=== PATIENT | male | born 1945 | race Caucasian/White ===

== ENCOUNTER → 2019-11-08 10:45 | Outpatient (BNVA) | payer MEDICARE, OTHER, SELFPAY | PROVIDERS: Family Provider Nurse Practitioner; PCP Nurse Practitioner; Visit Provider Nurse Practitioner | DX: E11.65 Type 2 diabetes mellitus with hyperglycemia (principal); I10 Essential (primary) hypertension; Z79.4 Long term (current) use of insulin | CPT/HCPCS: 80053; 81003; 85025; 85651; 86140 ==

== ENCOUNTER → 2019-11-16 10:55 | Outpatient (BNVA) | payer MEDICARE, OTHER, SELFPAY | PROVIDERS: Family Provider Nurse Practitioner; PCP Nurse Practitioner; Visit Provider Nurse Practitioner | DX: M54.6 Pain in thoracic spine (principal); M54.5 Low back pain; I71.4 Abdominal aortic aneurysm, without rupture | CPT/HCPCS: 72072; 72100 ==

== ENCOUNTER → 2019-12-14 09:57 | Outpatient (BNVA) | payer MEDICARE, OTHER, SELFPAY | PROVIDERS: Family Provider Nurse Practitioner; PCP Nurse Practitioner; Visit Provider Nurse Practitioner | DX: E78.5 Hyperlipidemia, unspecified (principal); E03.8 Other specified hypothyroidism; E55.9 Vitamin D deficiency, unspecified; I10 Essential (primary) hypertension; E11.65 Type 2 diabetes mellitus with hyperglycemia | CPT/HCPCS: 80061; 82306; 83036; 84443; 85025 ==

== ENCOUNTER → 2020-03-15 10:29 | Outpatient (BNVA) | payer MEDICARE, OTHER, SELFPAY | PROVIDERS: Family Provider Nurse Practitioner; PCP Nurse Practitioner; Visit Provider Urology | DX: R39.11 Hesitancy of micturition (principal); N41.1 Chronic prostatitis; N40.1 Benign prostatic hyperplasia with lower urinary tract symptoms | CPT/HCPCS: 81001 ==

== ENCOUNTER → 2020-04-02 09:02 | Outpatient (BNVA) | payer MEDICARE, OTHER, SELFPAY | PROVIDERS: Family Provider Nurse Practitioner; PCP Nurse Practitioner; Visit Provider Nurse Practitioner | DX: E11.65 Type 2 diabetes mellitus with hyperglycemia (principal); E55.9 Vitamin D deficiency, unspecified; R39.11 Hesitancy of micturition; I10 Essential (primary) hypertension; I25.10 Atherosclerotic heart disease of native coronary artery without angina pectoris; E78.5 Hyperlipidemia, unspecified; E03.8 Other specified hypothyroidism; K21.9 Gastro-esophageal reflux disease without esophagitis; M54.6 Pain in thoracic spine; M25.50 Pain in unspecified joint; R53.83 Other fatigue; L91.8 Other hypertrophic disorders of the skin | CPT/HCPCS: 80053; 80061; 81000; 82306; 83036; 85025; 86000; 86617; 86666; 86757 ==

== ENCOUNTER → 2020-07-10 09:29 | Outpatient (BNVA) | payer MEDICARE, OTHER, SELFPAY | PROVIDERS: Family Provider Nurse Practitioner; PCP Nurse Practitioner; Visit Provider Nurse Practitioner | DX: E11.65 Type 2 diabetes mellitus with hyperglycemia (principal); R39.11 Hesitancy of micturition; E03.8 Other specified hypothyroidism; E55.9 Vitamin D deficiency, unspecified | CPT/HCPCS: 80053; 81000; 82306; 83036; 84439; 84443; 84481; 85025; 85651; 86140 ==

== ENCOUNTER → 2020-08-17 17:09 | Outpatient (BNVA) | payer MEDICARE, OTHER, SELFPAY | PROVIDERS: Family Provider Nurse Practitioner; PCP Nurse Practitioner; Visit Provider Nurse Practitioner Family | DX: Z20.828 Contact with and (suspected) exposure to other viral communicable diseases (principal) | CPT/HCPCS: 87635 ==

== ENCOUNTER → 2020-09-11 08:42 | Outpatient (BNVA) | payer MEDICARE, OTHER, SELFPAY | PROVIDERS: Family Provider Nurse Practitioner; PCP Nurse Practitioner; Visit Provider Nurse Practitioner | DX: E11.65 Type 2 diabetes mellitus with hyperglycemia (principal) | CPT/HCPCS: 80053; 81000; 83036; 85025 ==

== ENCOUNTER → 2020-09-12 09:26 | Outpatient (BNVA) | payer MEDICARE, OTHER, SELFPAY | PROVIDERS: Family Provider Nurse Practitioner; PCP Nurse Practitioner; Visit Provider Nurse Practitioner | DX: E11.65 Type 2 diabetes mellitus with hyperglycemia (principal); I70.90 Unspecified atherosclerosis | CPT/HCPCS: 71046 ==

== ENCOUNTER → 2020-11-05 14:40 | Outpatient (BNVA) | payer MEDICARE, OTHER, SELFPAY | PROVIDERS: Family Provider Nurse Practitioner; PCP Nurse Practitioner; Visit Provider Nurse Practitioner | DX: E03.8 Other specified hypothyroidism (principal); E78.5 Hyperlipidemia, unspecified | CPT/HCPCS: 80061; 84443 ==

== ENCOUNTER → 2020-12-14 08:39 | Outpatient (BNVA) | payer MEDICARE, OTHER, SELFPAY | PROVIDERS: Family Provider Nurse Practitioner; PCP Nurse Practitioner; Visit Provider Nurse Practitioner | DX: E03.8 Other specified hypothyroidism (principal) | CPT/HCPCS: 84439; 84481 ==

== ENCOUNTER → 2021-01-10 10:16 | Outpatient (BNVA) | payer MEDICARE, OTHER, SELFPAY | PROVIDERS: Family Provider Nurse Practitioner; PCP Nurse Practitioner; Visit Provider Nurse Practitioner | DX: E11.65 Type 2 diabetes mellitus with hyperglycemia (principal); E55.9 Vitamin D deficiency, unspecified; I10 Essential (primary) hypertension | CPT/HCPCS: 80053; 80061; 83036 ==

== ENCOUNTER 2021-02-06 06:00 | Outpatient (RCR) | payer MEDICARE, OTHER, SELFPAY | END 2021-02-08 23:59 | disposition home or self-care (01) | LOC: APT 06:00 | PROVIDERS: PCP Nurse Practitioner; Referring Provider Nurse Practitioner; Visit Provider Nurse Practitioner | DX: M17.10 Unilateral primary osteoarthritis, unspecified knee (principal) | CPT/HCPCS: 97110; 97163 ==

== ENCOUNTER 2021-02-09 06:00 | Outpatient (RCR) | payer MEDICARE, OTHER, SELFPAY | END 2021-03-11 23:59 | disposition home or self-care (01) | LOC: APT 06:00 | PROVIDERS: PCP Nurse Practitioner; Referring Provider Nurse Practitioner; Visit Provider Nurse Practitioner | DX: M17.10 Unilateral primary osteoarthritis, unspecified knee (principal) | CPT/HCPCS: 97110 ==

== ENCOUNTER → 2021-03-18 10:47 | Outpatient (BNVA) | payer MEDICARE, OTHER, SELFPAY | PROVIDERS: PCP Nurse Practitioner; Visit Provider Urology | DX: N40.1 Benign prostatic hyperplasia with lower urinary tract symptoms (principal); R79.89 Other specified abnormal findings of blood chemistry; N41.1 Chronic prostatitis | CPT/HCPCS: 81003; 84403 ==

== ENCOUNTER → 2021-05-13 09:23 | Outpatient (BNVA) | payer MEDICARE, OTHER, SELFPAY | PROVIDERS: PCP Nurse Practitioner; Visit Provider Nurse Practitioner | DX: E11.65 Type 2 diabetes mellitus with hyperglycemia (principal); R39.11 Hesitancy of micturition; I10 Essential (primary) hypertension; I25.10 Atherosclerotic heart disease of native coronary artery without angina pectoris; E55.9 Vitamin D deficiency, unspecified; E03.8 Other specified hypothyroidism; K21.9 Gastro-esophageal reflux disease without esophagitis; E11.43 Type 2 diabetes mellitus with diabetic autonomic (poly)neuropathy | CPT/HCPCS: 81000 ==

== ENCOUNTER → 2021-05-15 09:34 | Outpatient (BNVA) | payer MEDICARE, OTHER, SELFPAY | PROVIDERS: PCP Nurse Practitioner; Visit Provider Nurse Practitioner | DX: E03.8 Other specified hypothyroidism (principal); E55.9 Vitamin D deficiency, unspecified; E11.65 Type 2 diabetes mellitus with hyperglycemia; I10 Essential (primary) hypertension | CPT/HCPCS: 80053; 80061; 82306; 83036; 84443 ==

== ENCOUNTER → 2021-08-08 08:52 | Outpatient (BNVA) | payer MEDICARE, OTHER, SELFPAY | PROVIDERS: PCP Nurse Practitioner; Visit Provider Nurse Practitioner | DX: E11.65 Type 2 diabetes mellitus with hyperglycemia (principal); E03.8 Other specified hypothyroidism; E55.9 Vitamin D deficiency, unspecified | CPT/HCPCS: 80053; 80061; 82043; 82306; 83036; 84439; 84443; 84481 ==

== ENCOUNTER → 2021-09-17 09:37 | Outpatient (BNVA) | payer MEDICARE, OTHER, SELFPAY | PROVIDERS: PCP Nurse Practitioner; Visit Provider Nurse Practitioner | DX: I25.10 Atherosclerotic heart disease of native coronary artery without angina pectoris (principal); E11.65 Type 2 diabetes mellitus with hyperglycemia | CPT/HCPCS: 81000; 85651; 86140 ==

== ENCOUNTER → 2021-10-30 13:08 | Outpatient (BNVA) | payer MEDICARE, OTHER, SELFPAY | PROVIDERS: PCP Nurse Practitioner; Referring Provider Nurse Practitioner; Visit Provider Specialist | DX: M25.562 Pain in left knee (principal); M25.561 Pain in right knee | CPT/HCPCS: 73560; 73565 ==

== ENCOUNTER → 2021-11-06 14:06 | Outpatient (BNVA) | payer MEDICARE, OTHER, SELFPAY | PROVIDERS: PCP Nurse Practitioner; Visit Provider Podiatrist Foot & Ankle Surgery | DX: I25.10 Atherosclerotic heart disease of native coronary artery without angina pectoris (principal); M79.672 Pain in left foot; I10 Essential (primary) hypertension | CPT/HCPCS: 80048; 85025 ==

== ENCOUNTER → 2021-11-27 11:31 | Outpatient (BNVA) | payer MEDICARE, OTHER, SELFPAY | PROVIDERS: PCP Nurse Practitioner; Visit Provider Nurse Practitioner | DX: E11.65 Type 2 diabetes mellitus with hyperglycemia (principal); K57.30 Diverticulosis of large intestine without perforation or abscess without bleeding | CPT/HCPCS: 81000 ==

== ENCOUNTER → 2021-12-02 16:06 | Outpatient (BNVA) | payer MEDICARE, OTHER, SELFPAY | PROVIDERS: PCP Nurse Practitioner; Visit Provider Family Medicine | DX: E11.8 Type 2 diabetes mellitus with unspecified complications (principal); E55.9 Vitamin D deficiency, unspecified; E11.65 Type 2 diabetes mellitus with hyperglycemia; K57.30 Diverticulosis of large intestine without perforation or abscess without bleeding; F17.211 Nicotine dependence, cigarettes, in remission | CPT/HCPCS: 80053; 82306; 83036; 85025 ==

== ENCOUNTER 2021-12-25 07:41 | Outpatient (CLI) | payer MEDICARE, OTHER, SELFPAY ==
[2021-12-25] MEDS: iohexol 300 mg/mL 50 mL Btl IV (07:52)
--- NOTE | 2021-12-25 09:00 | CTR_ITS ---
PROCEDURE INFORMATION: Exam: CT Abdomen And Pelvis Without Contrast Exam date and time: 12/25/2021 9:00 AM Age: 76 years old Clinical indication: Abdominal pain; Localized; Left lower quadrant (llq); Prior surgery; Surgery type: --appy, gb, lt ing hernia repair; Patient HX: Llq/ inguinal pain x 6 weeks; Additional info: K57.30 - diverticulosis of large intestine without perfor. . . , Mob TECHNIQUE: Imaging protocol: Computed tomography of the abdomen and pelvis without contrast. Radiation optimization: All CT scans at this facility use at least one of these dose optimization techniques: automated exposure control; mA and/or kV adjustment per patient size (includes targeted exams where dose is matched to clinical indication); or iterative reconstruction. COMPARISON: CT abdomen pelvis w con* [id number] 01/05/2018 9:57 AM RADIATION DOSE METRICS: Total DLP (mGy-cm): 2454.93 FINDINGS: Lungs: Two stable right lung nodules both seen on image 4/2 measuring 3 mm. Liver: Enlarged liver 215 mm. Gallbladder and bile ducts: Stable cholecystectomy clips. Pancreas: Normal. No ductal dilation. Spleen: Normal. No splenomegaly. Adrenal glands: Normal. No mass. Kidneys and ureters: Normal. No hydronephrosis. Stomach and bowel: Numerous colonic diverticula with mild diverticulitis suspected on image 4/57 involving a focal area of the sigmoid colon. Appendix: No evidence of appendicitis. Intraperitoneal space: Unremarkable. No free air. No significant fluid collection. Vasculature: Stable vascular calcifications with a 33 mm stable infrarenal abdominal aortic aneurysm. Lymph nodes: Unremarkable. No enlarged lymph nodes. Urinary bladder: Unremarkable as visualized. Reproductive: Heterogeneous stable prostate with calcifications. Bones/joints: Again arthritis with listhesis. Bilateral L5 stable pars defects. Soft tissues: Unremarkable. CT/CT abdomen pelvis wo con [id number] IMPRESSION: 1. Mild early acute sigmoid diverticulitis. 2. Stable abdominal aortic aneurysm. 3. Hepatomegaly.
== END 2021-12-25 07:42 | disposition home or self-care (01) ==
LOC: RAD 07:42
PROVIDERS: PCP Nurse Practitioner; Visit Provider Nurse Practitioner
DX: K57.30 Diverticulosis of large intestine without perforation or abscess without bleeding (principal); I71.4 Abdominal aortic aneurysm, without rupture; R16.0 Hepatomegaly, not elsewhere classified
CPT/HCPCS: 74176

== ENCOUNTER → 2022-02-04 16:20 | Outpatient (BNVA) | payer MEDICARE, OTHER, SELFPAY | PROVIDERS: PCP Nurse Practitioner; Visit Provider Family Medicine Adult Medicine | DX: R42 Dizziness and giddiness (principal); H61.23 Impacted cerumen, bilateral; J30.9 Allergic rhinitis, unspecified; E11.65 Type 2 diabetes mellitus with hyperglycemia | CPT/HCPCS: 81000 ==

== ENCOUNTER → 2022-02-10 11:36 | Outpatient (BNVA) | payer MEDICARE, OTHER, SELFPAY | PROVIDERS: PCP Nurse Practitioner; Visit Provider Nurse Practitioner | DX: G47.33 Obstructive sleep apnea (adult) (pediatric) (principal); Z99.89 Dependence on other enabling machines and devices; E11.65 Type 2 diabetes mellitus with hyperglycemia; F41.8 Other specified anxiety disorders | CPT/HCPCS: 36416; 82962 ==

== ENCOUNTER 2022-02-24 10:03 | Outpatient (CLI) | payer MEDICARE, OTHER, SELFPAY ==
--- NOTE | 2022-02-24 10:13 | XRR_ITS ---
PROCEDURE INFORMATION: Exam: XR Lumbosacral Spine Exam date and time: 02/24/2022 10:31 AM Age: 77 years old Clinical indication: Low back pain; Additional info: Spondylolisthesis, lumbosacral region, please comment on presence or absence of spinal instability TECHNIQUE: Imaging protocol: XR of the lumbosacral spine. Views: 2 or 3 views. COMPARISON: CR XR lumbar spine 2-3V* [id number] 11/16/2019 10:55 AM FINDINGS: Bones/joints: Chronic degenerative changes are present with disc space narrowing and small osteophytes. There is narrowing sclerosis and hypertrophy of the lumbar facet joints. There is bilateral L5 spondylolysis with grade 2 spondylolisthesis at L5-S1. The spondylolisthesis does not significantly change flexion and extension. Soft tissues: Unremarkable. Vasculature: The abdominal aorta is calcified. There is infrarenal abdominal aortic aneurysmal dilatation to an AP diameter of 4.2 cm. XR/XR lumbar spine f/e only [id number] IMPRESSION: 1. Chronic degenerative disease. No acute abnormality. 2. Bilateral L5 spondylolysis with grade 2 spondylolisthesis thesis at L5-S1. 3. Infrarenal abdominal aortic aneurysm measuring 4.2 cm in AP diameter.
== END 2022-02-24 10:04 | disposition home or self-care (01) ==
PROVIDERS: PCP Nurse Practitioner; Visit Provider Anesthesiology Pain Medicine
DX: M43.17 Spondylolisthesis, lumbosacral region (principal)
CPT/HCPCS: 72120

== ENCOUNTER → 2022-02-25 09:03 | Outpatient (BNVA) | payer MEDICARE, OTHER, SELFPAY | PROVIDERS: PCP Nurse Practitioner; Visit Provider Nurse Practitioner | DX: E11.65 Type 2 diabetes mellitus with hyperglycemia (principal); E03.8 Other specified hypothyroidism | CPT/HCPCS: 80053; 80061; 82306; 83036; 84443 ==

== ENCOUNTER 2022-03-17 14:56 | Outpatient (CLI) | payer MEDICARE, OTHER, SELFPAY | END 2022-03-17 14:57 | disposition home or self-care (01) | PROVIDERS: PCP Nurse Practitioner; Visit Provider Urology | DX: M17.10 Unilateral primary osteoarthritis, unspecified knee (principal); R79.9 Abnormal finding of blood chemistry, unspecified; Z79.899 Other long term (current) drug therapy; N40.1 Benign prostatic hyperplasia with lower urinary tract symptoms; N41.1 Chronic prostatitis; R79.89 Other specified abnormal findings of blood chemistry | CPT/HCPCS: 36415; 51798; 81003; 84403; 99213 ==

== ENCOUNTER → 2022-04-23 13:25 | Outpatient (BNVA) | payer MEDICARE, OTHER, SELFPAY | PROVIDERS: PCP Nurse Practitioner; Referring Provider Dermatology; Visit Provider Podiatrist Foot & Ankle Surgery | DX: M79.671 Pain in right foot (principal); M79.672 Pain in left foot; E11.42 Type 2 diabetes mellitus with diabetic polyneuropathy; L84 Corns and callosities; L60.3 Nail dystrophy; M20.41 Other hammer toe(s) (acquired), right foot; M21.41 Flat foot [pes planus] (acquired), right foot; M21.42 Flat foot [pes planus] (acquired), left foot; M20.42 Other hammer toe(s) (acquired), left foot | CPT/HCPCS: 99204 ==

== ENCOUNTER 2022-05-12 09:08 | Outpatient (CLI) | payer MEDICARE, OTHER, SELFPAY ==
--- NOTE | 2022-05-12 09:15 | US_ITS ---
WS: [id number] ULTRASOUND ABDOMEN LIMITED CLINICAL INFORMATION: CONCERN FOR L INGUINAL HERNIA COMPARISON: None. FINDINGS: Normal LEFT inguinal canal. No visualized inguinal hernia. No herniated bowel. No fluid collections. US/US abdomen limited [id number] IMPRESSION: No visualized inguinal hernia. No herniated bowel.
== END 2022-05-12 09:09 | disposition home or self-care (01) ==
LOC: RAD 09:08
PROVIDERS: PCP Nurse Practitioner; Visit Provider Family Medicine
DX: K40.90 Unilateral inguinal hernia, without obstruction or gangrene, not specified as recurrent (principal)
CPT/HCPCS: 76705

== ENCOUNTER 2022-05-30 14:44 | Inpatient (IN) | payer MEDICARE, OTHER, SELFPAY ==
[2022-05-30 14:53] VITALS: BP 110/56; PULSE 62; RESP 18; TEMP 36.6; O2SAT 97; BMI 36.3
--- NOTE | 2022-05-30 15:02 | ED_ITS ---
HPI - Chest Pain General: Chief Complaint: Chest Pain Stated Complaint: CHEST PAIN Time Seen by Provider: 05/30/22 14:44 Source: patient and EMS Mode of arrival: EMS Limitations: no limitations History of Present Illness: This patient was transferred to the emergency department from his [facility] office this afternoon. He apparently has been having chest pains off and on relieved by nitroglycerin for a number of days perhaps longer and finally decided to come to his doctor today. He has a history of coronary disease has 2 stents the last of which was placed approximately 2 years ago. He states he has never been told he has had a heart attack however. He states today his chest pains also began while he was in the doctor's office he received used a nitro glycerin spray at that time which relieved his symptoms. EMS arrived for the transport gave him 324 mg of aspirin p.o. as well as 2 additional sublingual nitroglycerin he states he is chest pain-free at this time. He states he been having the chest pains that are unpredictable in nature they will can sometimes come on with exertion sometimes not. He states they have woken him from sleep. He states the always resolve with nitro spray and the couple of aspirin. He is also been having some left- sided abdominal pain. He has a history of diverticulosis and thinks he may be having diverticulitis. He denies any blood in his stools or fevers. MD complaint: chest pain Pertinent past history: coronary artery disease Pain location: substernal Severity: moderate Quality: tightness and heaviness Relieving factors: nitroglycerin Exacerbating factors: exertion Associated symptoms: Reports no associated symptoms and abdominal pain; Deny dyspnea, fever(s), nausea, syncope or vomiting Review of Systems Const: Denies: fever(s) or chills Eyes: Denies: change in vision ENMT: Denies: throat pain, odynophagia, change in hearing, nasal congestion or nasal obstruction Card: Reports: chest pain; Denies: syncope or pre-syncope Resp: Denies: dyspnea, productive cough or non-productive cough GI: Reports: abdominal pain; Denies: nausea, vomiting, diarrhea, change in bowel habits, hematochezia or melena : Denies: flank pain, difficulty urinating or dysuria Musc: Denies: neck pain, back pain, extremity pain or extremity swelling Skin/Breast: Denies: rash Neuro: Denies: headache(s), numbness in extremities or weakness in extremities Psych: Denies: anxiety or depression Endo: Denies: polyuria or polydipsia PFSH ED PFSH: Medical History Adult onset hypothyroidism Allergic rhinitis due to allergen Arteriosclerosis of coronary artery Bilateral hearing loss due to cerumen impaction BPH loc w urin obs/LUTS Good response and durably so to dual medical therapy of FINASTERIDE/TAMSULOSIN (single dose) CAD (coronary artery disease) Chest pain at rest Chronic prostatitis On self treatment with CIPROFLOXACIN. Sporadic treatment required. Controlled diabetes mellitus with hyperglycemia, without long-term current use of insulin DDD (degenerative disc disease), lumbar Dependence on nocturnal oxygen therapy Diverticula, colon Dizziness and giddiness DM autonomic neuropathy Dyslipidemia Essential (primary) hypertension GERD (gastroesophageal reflux disease) GREG on CPAP Osteoarthritis, knee Pain in thoracic spine at multiple sites Urinary hesitancy Vitamin D insufficiency Surgical History H/O rectal polypectomy History of angiography With stent placement History of appendectomy History of carotid artery disease surgery right bilateral 2007 History of cataract surgery right and left History of cholecystectomy History of colonoscopy 2017 repeat in 3 years History of hernia repair Left History of surgery on arm right skin graft age 17 History of surgical amputation of finger of right hand age 17 Family History Mother Cancer Father CAD (coronary artery disease) Stroke Denies family history of Bleeding disorder Social History Smoking and tobacco status: former smoker Second hand smoke exposure: No Smoking risk assessment/counseling performed?: No Alcohol intake: never Desire information about alcohol rehabilitation?: No Counseling given: No Desire information about substance/drug rehabilitation?: No Counseling given: No Adopted: No Caregiver/support person: No Lives independently: Yes Household members: spouse Housing: House Marital status: service: No Current occupational status: employed History of recent travel: No Current gender identity: Male Physical Exam Narrative: EXAM NARRATIVE: He makes good eye contact. Speech is goal-directed. He is comfortable. Const: COMMON NORMALS: no acute distress GENERAL APPEARANCE: cooperative and comfortable NUTRITIONAL APPEARANCE: overweight ORIENTATION/CONSCIOUSNESS: Yes awake HENMT: COMMON NORMALS: normocephalic, atraumatic, Normal nasal mucous membranes and turbinates present, moist oral mucous membranes and oropharynx normal HEAD & SCALP: normocephalic and atraumatic NOSE: Normal nasal mucous membranes and turbinates present Eye: COMMON NORMALS: Equal, round and reactive pupils present, EOMs intact bilaterally and conjunctivae normal CONJUNCTIVA: Yes conjunctivae normal PUPIL: Yes Equal, round and reactive pupils present Neck/C-Spine: COMMON NORMALS: full ROM, no lymphadenopathy, Thyroid normal and No carotid bruits THYROID: Thyroid normal Chest: COMMONS NORMALS: normal inspection of the chest and normal palpation of entire chest wall Resp: COMMON NORMALS: normal respiratory effort, No use of accessory muscles and clear to auscultation bilaterally EFFORT & INSPECTION: Yes able to speak in complete sentences AUSCULTATION: clear to auscultation bilaterally Cardio: COMMON NORMALS: regular rate, regular rhythm and Peripheral pulses 2+ throughout RATE: regular rate RHYTHM: regular rhythm HEART SOUNDS: Murmur heart sound present (2/6 left sternal border) systolic PERIPHERAL PULSES: Peripheral pulses 2+ throughout GI: OTHER: Obese abdomen. Tender left lower quadrant some voluntary guarding. No rebound. No masses. Skin changes no ecchymosis. : COMMON NORMALS: Yes no CVA tenderness BLADDER/KIDNEY EXAM: Yes no CVA tenderness Back/Pelvis: COMMON NORMALS: no CVA tenderness, no thoracic nor lumbar tenderness, thoraco-lumbar ROM normal and straight leg raise negative bilaterally Extremity: COMMON NORMALS: full ROM, capillary refill normal, no calf tenderness and no pedal edema NARRATIVE EXTREMITY EXAM: Extremity examination is remarkable for prior amputation of fourth and fifth digits of right hand. GENERAL: Yes amputation Neuro: COMMON NORMALS: moves all extremities and no focal motor deficits CRANIAL NERVES: Yes CN normal except as noted Psych: COMMON NORMALS: mental status grossly normal Skin: COMMON NORMALS: no rashes or lesions noted, turgor normal, no jaundice and no petechiae GENERAL SKIN EXAM: no rashes or lesions noted and turgor normal Course Reevaluation(s): Reevaluation #1: No chest pain at this time. Time: 17:23 Consultations: Consultation #1: Rudy cardiology will consult. She recommends lovenox. Time: 17:23 Vital Signs: Vital signs: Vital Signs Temperature 97.8 F 08/19/22 14:53 Pulse Rate 50 L 05/30/22 16:15 Respiratory Rate 15 05/30/22 16:15 Blood Pressure 176/84 05/30/22 16:15 Pulse Oximetry 93 05/30/22 16:15 Oxygen Delivery Me thod 05/30/22 16:15 MDM - Chest Pain Medical Decision Making Patient with known coronary artery disease referred from his primary care offic e. The patient gives a history of waxing and waning chest pain over the past few weeks always relieved by nitroglycerin. He is awakened at sleep sometimes by the symptoms. He presented today with chest pain while in his physician's office. EKG was initially reassuring without any acute ST-T wave changes. His initial troponin was slightly elevated at 27. He also been having some concomitant left lower abdominal pain and a CT scan was obtained which showed mild diverticulitis. Cardiology was consulted and he will be placed in the hospital for following serial troponin, antibiotics, further evaluation of what would seem to be unstable angina at this time. Medical Records I reviewed the patient's medical records. Lab Data I reviewed the patient's lab results. : 05/30/22 15:20 05/30/22 15:20 Radiology Impressions Chest X-Ray 05/30/22 15:03 Impression: Atherosclerosis. Abdomen/Pelvis CT 05/30/22 16:19 IMPRESSION: 2. There is subtle haziness of the fat adjacent to a segment of the proximal sigmoid colon concerning for mild diverticulitis. No fluid collection, abscess or free air. 3. There is diffuse wall thickening of the colon but the colon is also mostly collapsed in this is probable lack of distension rather than diffuse colitis. Laboratory Results WBC 5.9 10^3/uL (4.0-10.0) 05/30/22 15:20 RBC 5.40 10^6/uL (4.1-5.3) H 05/30/22 15:20 Hgb 16.2 g/dL (11.7-16.6) 05/30/22 15:20 Hct 50.5 % (42.0-52.0) 05/30/22 15:20 MCV 93.5 fl (80-94) 05/30/22 15:20 MCH 30.0 pg (28.0-34.0) 05/30/22 15:20 MCHC 32.1 g/dL (30.0-36.0) 05/30/22 15:20 RDW 12.5 % (12.1-15.1) 05/30/22 15:20 Plt Count 284 10^3/cmm (130-400) 05/30/22 15:20 MPV 9.4 fL (7.4-10.4) 05/30/22 15:20 Neut % (Auto) 52.9 % 05/30/22 15:20 Lymph % (Auto) 31.3 % 05/30/22 15:20 Desha % (Auto) 9.6 % 05/30/22 15:20 Eos % (Auto) 5.0 % 05/30/22 15:20 Baso % (Auto) 1.0 % 05/30/22 15:20 Neut # (Auto) 3.10 10^3/uL (1.8-7.7) 05/30/22 15:20 Lymph # (Auto) 1.8 10^3/uL (0.8-4.8) 05/30/22 15:20 Desha # (Auto) 0.6 10^3/uL (0.2-0.9) 05/30/22 15:20 Eos # (Auto) 0.3 10^3/uL (0.0-0.8) 05/30/22 15:20 Baso # (Auto) 0.1 10^3/uL (0.0-0.1) 05/30/22 15:20 Nucleated RBC % (auto) 0 % 05/30/22 15:20 Nucleated RBCs # 0.0 /100WBC 05/30/22 15:20 Sodium 138 mmol/L (136-145) 05/30/22 15:20 Potassium 4.2 mmol/L (3.5-5.1) 05/30/22 15:20 Chloride 103 mmol/L (98-107) 05/30/22 15:20 Carbon Dioxide 24 mmol/L (22-29) 05/30/22 15:20 Anion Gap 15.2 (5-19) 05/30/22 15:20 BUN 18 mg/dL (8-23) 05/30/22 15:20 Creatinine 0.8 mg/dL (0.7-1.2) 05/30/22 15:20 GFR Calculation Not Reportable 05/30/22 15:20 Glucose 95 mg/dL (65-115) 05/30/22 15:20 Calculated Osmolality 288 mOsm/kg (285-295) 05/30/22 15:20 Calcium 9.5 mg/dL (8.5-10.5) 05/30/22 15:20 Total Bilirubin 0.4 mg/dL (0.15-1.2) 05/30/22 15:20 AST 17 U/L (0-40) 05/30/22 15:20 ALT 19 U/L (0-41) 05/30/22 15:20 Alkaline Phosphatase 89 U/L (40-130) 05/30/22 15:20 Troponin T Baseline 27 ng/L (0-15) H 05/30/22 15:20 NT-Pro-B Natriuret Pep 138 pg/mL (0-450) 05/30/22 15:20 Total Protein 6.7 g/dL (6.6-8.7) 05/30/22 15:20 Albumin 3.8 g/dL (3.5-5.2) 05/30/22 15:20 Globulin 2.9 g/dL (1.3-4.6) 05/30/22 15:20 EKG Data EKG 2: I personally reviewed and interpreted this EKG as follows: EKG interpretation time: 17:24 Interpretation: Second EKG this visit reveals sinus bradycardia with first-degree AV block. Other than lengthen MO interval his QRS duration is normal and his QTC is normal. No acute ST-T wave changes noted. No change from prior tracing this visit. Discharge Plan Discharge Patient Disposition: Placed in Observation Clinical Impression: Unstable angina pectoris, CAD (coronary artery disease), Diverticula, colon Coding Level of Care Code ED Hospitality Aide for Chg Fwd Exam Comprehensive
--- NOTE | 2022-05-30 15:03 | XR_ITS ---
WS: [id number] Portable AP upright chest, 05/30/2022 Clinical Data: chest pain Comparison: PA and lateral chest, 09/12/2020. Findings: No nodules, masses or effusions are seen. The heart is normal. The pulmonary vascularity is not increased. No pneumonia or pneumothorax is seen. The aortic arch and descending thoracic aorta s how calcification and tortuosity. XR/XR chest 1V portable [id number] Impression: Atherosclerosis.
--- NOTE | 2022-05-30 15:04 | ECG_ITS ---
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 Measurements Intervals [place] Rate: 55 P: -1 DE: 226 QRS: -26 QRSD: 114 T: 14 QT: 431 QTc: 413 Interpretive Statements SINUS BRADYCARDIA WITH FIRST DEGREE AV BLOCK BORDERLINE LEFT AXIS DEVIATION [QRS AXIS < -20] MODERATE INTRAVENTRICULAR CONDUCTION DELAY [110+ ms QRS DURATION] Compared to ECG 04/24/2018 20:44:04 First degree AV block now present Intraventricular conduction delay now present Sinus rhythm no longer present Myocardial infarct finding no longer present Electronically Signed On 05-30-2022 17:43:21 CDT by Guicho Goff M.D. [id number]
[2022-05-30 15:29] LABS: Basophils # 0.1 10^3/uL (0.0-0.1); Eosinophils # 0.3 10^3/uL (0.0-0.8); Hematocrit 50.5 % (42.0-52.0); Hemoglobin 16.2 g/dL (11.7-16.6); Lymphocytes # 1.8 10^3/uL (0.8-4.8); Lymphocytes % 31.3 %; Mean Corpuscular HGB Conc 32.1 g/dL (30.0-36.0); Mean Corpuscular Volume 93.5 fl (80-94); Mean Platelet Volume 9.4 fL (7.4-10.4); Monocytes # 0.6 10^3/uL (0.2-0.9); Monocytes % 9.6 %; Neutrophils % 52.9 %; Nucleated Red Blood Cells % 0 %; Platelet Count 284 10^3/cmm (130-400); Red Cell Distribution Width 12.5 % (12.1-15.1); White Blood Count 5.9 10^3/uL (4.0-10.0)
[2022-05-30 15:33] VITALS: BP 127/69; PULSE 52; RESP 16; O2SAT 95
[2022-05-30 16:00] LABS: Troponin(5th) Baseline 27 ng/L (0-15)
[2022-05-30 16:04] LABS: Alanine Aminotransferase 19 U/L (0-41); Albumin Level 3.8 g/dL (3.5-5.2); Alkaline Phosphatase 89 U/L (40-130); Aspartate Amino Transferase 17 U/L (0-40); Blood Urea Nitrogen 18 mg/dL (8-23); Calcium 9.5 mg/dL (8.5-10.5); Carbon Dioxide 24 mmol/L (22-29); Chloride 103 mmol/L (98-107); Globulin 2.9 g/dL (1.3-4.6); Glucose 95 mg/dL (65-115); NT Pro B Type Natriuretic Pept 138 pg/mL (0-450); Osmolality Calculated 288 mOsm/kg (285-295); Sodium 138 mmol/L (136-145); Total Bilirubin 0.4 mg/dL (0.15-1.2); Total Protein 6.7 g/dL (6.6-8.7)
[2022-05-30 16:15] VITALS: BP 176/84; PULSE 50; RESP 15; O2SAT 93
--- NOTE | 2022-05-30 16:19 | CTR_ITS ---
PROCEDURE INFORMATION: Exam: CT Abdomen And Pelvis Without Contrast Exam date and time: 05/30/2022 4:47 PM Age: 77 years old Clinical indication: Abdominal pain; Generalized; Prior surgery; Surgery date: 6+ months; Surgery type: Gb , appy; Additional info: Left lower abd pain-hx of diverticulosis TECHNIQUE: Imaging protocol: Computed tomography of the abdomen and pelvis without contrast. Radiation optimization: All CT scans at this facility use at least one of these dose optimization techniques: automated exposure control; mA and/or kV adjustment per patient size (includes targeted exams where dose is matched to clinical indication); or iterative reconstruction. COMPARISON: CT abdomen pelvis wo con [id number] 12/25/2021 8:11 AM RADIATION DOSE METRICS: Total DLP (mGy-cm): 1099.74 FINDINGS: Lungs: There is mild ground-glass opacity in the lung bases compatible with atelectasis or minimal pneumonitis. Liver: Unremarkable.No mass. Gallbladder and bile ducts: There has been a cholecystectomy. There is no common bile duct dilation. Pancreas: Normal. No ductal dilation. Spleen: The spleen is normal. An accessory splenule is present. Adrenal glands: The adrenal glands are normal. Kidneys and ureters: There is no evidence of hydronephrosis. There is no evidence of renal calcifications. Stomach and bowel: Extensive diverticulosis is present in the distal colon. There is subtle haziness of the fat adjacent to a segment of the proximal sigmoid colon concerning for mild diverticulitis. There is diffuse wall thickening of the colon but the colon is also mostly collapsed in this is probable lack of distension rather than diffuse colitis. Appendix: The appendix is not definitively identified. However, there is no CT evidence of a right lower quadrant inflammatory process. Intraperitoneal space: Unremarkable. No free air. No significant fluid collection. Vasculature: The aorta demonstrates moderate atherosclerotic calcification. The distal abdominal aorta measures 3.7 cm. Lymph nodes: Unremarkable.No enlarged lymph nodes. Urinary bladder: Unremarkable as visualized. Reproductive: Click bladderThe prostate demonstrates moderate nonspecific enlargement. The seminal vesicles are normal. The prostate demonstrates nonspecific parenchymal calcifications. Bones/joints: The there is bilateral spondylolysis of L5 with mild grade 1 spondylolisthesis of L5 on S1. There are moderate degenerative changes in the spine. No acute bony abnormality. There is moderate to severe narrowing of the spinal canal at L4-L5 and L5-S1 due to small disc bulges and bony proliferative changes. Soft tissues: There is a nonobstructing right inguinal hernia. CT/CT abdomen pelvis wo con [id number] IMPRESSION: 2. There is subtle haziness of the fat adjacent to a segment of the proximal sigmoid colon concerning for mild diverticulitis. No fluid collection, abscess or free air. 3. There is diffuse wall thickening of the colon but the colon is also mostly collapsed in this is probable lack of distension rather than diffuse colitis.
[2022-05-30 16:33] LABS: Anion Gap 15.2 (5-19); Potassium 4.2 mmol/L (3.5-5.1)
--- NOTE | 2022-05-30 17:04 | ECG_ITS ---
[facility] Test Date: 2022-05-30 Pat Name: Mo Van Department: Room: Gender: Male Event Host: : 1945 Requested By: Hao Brown Order Number: [id number] Seiln MD: Guicho Goff M.D. Measurements Intervals [place] Rate: 50 P: 66 TN: 229 QRS: -17 QRSD: 117 T: 34 QT: 457 QTc: 417 Interpretive Statements SINUS BRADYCARDIA WITH FIRST DEGREE AV BLOCK MODERATE INTRAVENTRICULAR CONDUCTION DELAY [110+ ms QRS DURATION] Compared to ECG 05/30/2022 15:18:31 No significant changes Electronically Signed On 05-30-2022 17:48:34 CDT by Guicho Goff M.D. [id number]
--- NOTE | 2022-05-30 18:07 | USCV_ITS ---
Mo Van Age: 77 Gender: M : 1945 Exam Date: 05/30/2022 18:44 Ordering Phys: Dwayne Todd MD Technologist: Isaac Irby [place] [facility] [place]: Chest pain, sob BP: 126 / 46 HR: 46 Rhythm: Sinus Technical Quality: Suboptimal MEASUREMENTS (Male / Female) Normal Values 2D ECHO LV Diastolic Diameter PLAX 3.6 cm 4.2 - 5.9 / 3.9 - 5.3 cm LV Systolic Diameter PLAX 2.3 cm IVS Diastolic Thickness 1.2 cm 0.6 - 1.0 / 0.6 - 0.9 cm IVS Systolic Thickness 1.5 cm LVPW Diastolic Thickness 1.4 cm 0.6 - 1.0 / 0.6 - 0.9 cm LVPW Systolic Thickness 1.9 cm LVOT Diameter 2.0 cm LV Ejection Fraction 2D Teich 67.3 % LV Ejection Fraction MOD 2C 64.8 % LV Ejection Fraction 2C AL 65.6 % LA Diameter 4.7 cm IVC Diameter 2.0 cm M-MODE Aortic Annulus Diameter 4.3 cm LA Ao Ratio MM 1.3 DOPPLER AV Peak Velocity 233.5 cm/s LVOT Peak Velocity 89.0 cm/s AV Area Cont Eq vti 1.0 cm squared AV Area Cont Eq pk 1.2 cm squared MV Area PHT 5.0 cm squared Mitral E to A Ratio 0.7 MV E' Velocity 34.5 cm/s Mitral E to MV E' Ratio 8.9 Mitral E to LV E' Lateral Ratio 8.0 Mitral E to LV E' Septal Ratio 10.0 TR Peak Velocity 160.0 cm/s TR Peak Gradient 10.2 mmHg TV Peak E Velocity 82.0 cm/s Right Atrial Pressure 3.0 mmHg Pulmonary Artery Systolic Pressu 13.2 mmHg PV Peak Velocity 140.0 cm/s FINDINGS Left Ventricle Normal left ventricular cavity size. Normal left ventricular systolic function. Left ventricular ejection fraction is estimated at 65 %. No regional wall motion abnormalities. Grade I diastolic dysfunction (abnormal relaxation filling pattern), normal to mildly elevated filling pressures. Right Ventricle Normal right ventricular size and systolic function. Right ventricular systolic pressure 13.2 mmHg. Right Atrium Normal right atrial size. Left Atrium Mildly increased left atrial size. Mitral Valve Mild mitral annular calcification. No mitral valve stenosis. No mitral valve regurgitation. Aortic Valve Mildly thickened trileaflet aortic valve. Mild aortic valve stenosis, peak velocity 2.3 m/sec, peak gradient 21 mm Hg, mean gradient 11 mmHg, FAN 1.1 cm squared. No aortic valve regurgitation. Tricuspid Valve Structurally normal tricuspid valve. Trace tricuspid valve regurgitation. Pulmonic Valve Pulmonic valve not well visualized. Pericardium No pericardial effusion. Aorta Aorta not well visualized. IVC Inferior vena cava not visualized. CONCLUSIONS 1. Normal left ventricular cavity size and systolic function. Left ventricular ejection fraction is estimated at 65 %. No regional wall motion abnormalities. Grade I diastolic dysfunction (abnormal relaxation filling pattern), normal to mildly elevated filling pressures. 2. Normal right ventricular size and systolic function. 3. Mild aortic valve stenosis, peak velocity 2.3 m/sec, peak gradient 21 mm Hg, mean gradient 11 mmHg, FAN 1.1 cm squared. 4. No significant change when compared to study dated 03/10/2019. Rachell Benitez MD (Electronically Signed) Final Date: 31 May 2022 10:22 S
--- NOTE | 2022-05-30 18:10 | PM.HP ---
Providers/Chief Complaint Primary Care Provider: RUSSELL Ghotra Chief Complaint: CHEST PAIN History of Present Illness Pleasant 77-year-old gentleman presents to the hospital due to recurrent episodes of chest pain over the last week, but getting worse, at least several episodes this morning. Requiring nitroglycerin, which has been helping. Describes chest pain episodes as central, radiating to the back and left arm. They may occur with exertion, but may occur at rest, and sometimes wake him up at night. During episodes he feels very weak. He reports history of coronary disease with stenting performed in [place] several years ago. Reports that he completed a year of Plavix after which she discontinued it. He states that he has not been taking aspirin due to GERD and with history of diverticulosis reports there was concern to avoid bleeding. He denies any bloody stools, any melena. He does not have pain currently. He additionally does report also having some left lower quadrant pain recently. CT abdomen pelvis in ER shows findings suggestive of mild diverticulitis. Review of Systems Const: Denies: fever(s), chills, body aches or malaise Eyes: Denies: change in vision, eye discomfort or eye redness ENMT: Denies: throat pain, oral sores or ear or mastoid pain Card: Reports: chest pain; Denies: edema, pre-syncope or dyspnea on exertion Resp: Denies: dyspnea, productive cough, change in phlegm color or hemoptysis GI: Reports: abdominal pain (LLQ); Denies: nausea, vomiting, diarrhea, constipation, hematochezia or melena : Denies: flank pain, difficulty urinating, urinary frequency or hematuria Musc: Denies: back pain, joint swelling or joint redness Skin/Breast: Denies: rash or new lesions Neuro: Denies: headache(s), numbness in extremities, weakness in extremities, dizziness, confusion or seizure-like activity Endo: Denies: polyuria or polydipsia Sujit/Lymph: Denies: easy bleeding or tender lymph nodes All/Imm: Denies: urticaria or tongue swelling Medications/Allergies Home Medications Medication Instructions Recorded Confirmed Last Taken Type diabetic shoes #1 ea 10/18/20 05/30/22 Unknown Rx nitroglycerin 400 mcg/spray 1 spray translingual Q5M PRN chest 11/14/20 05/30/22 Unknown Rx translingual pain #4.9 grams stbehvoa-dnbvushbs-xygkqmfwv 3.5 4 drp otic (ear) TID 10 days #10 mL 07/18/21 05/30/22 Unknown Rx mg-10,000 unit/mL-1 % ear drops,susp Diabetic shoes with inserts #1 ea 12/02/21 05/30/22 Unknown Rx chlorhexidine gluconate 0.12 % 15 ml buccal BID #473 mL 12/26/21 05/30/22 Unknown Rx mouthwash (Peridex) CPAP machine and supplies #1 ea 02/10/22 05/30/22 Unknown Rx blood sugar diagnostic (OneTouch #50 ea 02/10/22 05/30/22 Unknown Rx Ultra Test) blood-glucose meter (OneTouch #1 ea 02/10/22 05/30/22 Unknown Rx Ultra2 Meter) empagliflozin 10 mg tablet 10 mg PO QAM #90 tabs 02/27/22 05/30/22 Unknown Rx (Jardiance) finasteride 5 mg tablet 5 mg PO QDAY #90 tabs 02/27/22 05/30/22 Unknown Rx furosemide 20 mg tablet 20 mg PO QAM PRN edema #90 tabs 02/27/22 05/30/22 Unknown Rx gabapentin 800 mg tablet 800 mg PO TID #270 tabs 02/27/22 05/30/22 Unknown Rx levothyroxine 200 mcg tablet 200 mcg PO DAILY #90 tabs 02/27/22 05/30/22 Unknown Rx potassium chloride 10 mEq 10 meq PO QDAY PRN with fluid pill 02/27/22 05/30/22 Unknown Rx tablet,extended release (Klor-Con) #90 tabs valsartan 40 mg tablet (Diovan) 40 mg PO DAILY #90 tabs 02/27/22 05/30/22 Unknown Rx Knee brace L1851 #2 ea 03/21/22 05/30/22 Unknown Rx Diabetic Shoes with 3 Insoles #1 ea 04/23/22 05/30/22 Unknown Rx tamsulosin 0.4 mg capsule 0.4 mg PO QDAY #90 caps 05/09/22 05/30/22 Unknown Rx Allergies Allergy/AdvReac Type Severity Reaction Status Date / Time No Known Allergies Allergy Verified 05/30/22 13:14 PFSH Acute PFSH: Medical History Adult onset hypothyroidism Allergic rhinitis due to allergen Arteriosclerosis of coronary artery Bilateral hearing loss due to cerumen impaction BPH loc w urin obs/LUTS Good response and durably so to dual medical therapy of FINASTERIDE/TAMSULOSIN (single dose) CAD (coronary artery disease) Chest pain at rest Chronic prostatitis On self treatment with CIPROFLOXACIN. Sporadic treatment required. Controlled diabetes mellitus with hyperglycemia, without long-term current use of insulin DDD (degenerative disc disease), lumbar Dependence on nocturnal oxygen therapy Diverticula, colon Dizziness and giddiness DM autonomic neuropathy Dyslipidemia Essential (primary) hypertension GERD (gastroesophageal reflux disease) GREG on CPAP Osteoarthritis, knee Pain in thoracic spine at multiple sites Urinary hesitancy Vitamin D insufficiency Surgical History H/O rectal polypectomy History of angiography With stent placement History of appendectomy History of carotid artery disease surgery right bilateral 2007 History of cataract surgery right and left History of cholecystectomy History of colonoscopy 2017 repeat in 3 years History of hernia repair Left History of surgery on arm right skin graft age 17 History of surgical amputation of finger of right hand age 17 Family History Mother Cancer Father CAD (coronary artery disease) Stroke Denies family history of Bleeding disorder Social History Smoking and tobacco status: former smoker Second hand smoke exposure: No Smoking risk assessment/counseling performed?: No Alcohol intake: never Desire information about alcohol rehabilitation?: No Counseling given: No Desire information about substance/drug rehabilitation?: No Counseling given: No Adopted: No Caregiver/support person: No Lives independently: Yes Household members: spouse Housing: House Marital status: service: No Current occupational status: employed History of recent travel: No Current gender identity: Male Vitals/I&O/Wt Last Vital Signs Temp 97.8 F 05/30/22 14:53 Pulse 50 L 05/30/22 16:15 Resp 15 05/30/22 16:15 BP 176/84 05/30/22 16:15 Pulse Ox 93 05/30/22 16:15 O2 Del Method 05/30/22 16:15 Weight last 48 hrs Weight 121.563 kg Physical Exam Const: COMMON NORMALS: patient oriented x3 and alert GENERAL APPEARANCE: cooperative ORIENTATION/CONSCIOUSNESS: Yes awake HENMT: COMMON NORMALS: oropharynx normal Neck/C-Spine: COMMON NORMALS: no JVD Resp: COMMON NORMALS: normal respiratory effort and clear to auscultation bilaterally AUSCULTATION: clear to auscultation bilaterally Cardio: COMMON NORMALS: no JVD, regular rhythm, S1 normal heart sound present, S2 normal heart sound present and No murmurs present (Cardio) RHYTHM: regular rhythm HEART SOUNDS: S1 normal heart sound present and S2 normal heart sound present GI: COMMON NORMALS: Normal to inspection, nondistended, normoactive bowel sounds present and Soft to palpation PALPATION: Yes Soft to palpation Extremity: COMMON NORMALS: no joint enlargement and no pedal edema OTHER: Right digit amputation Neuro: COMMON NORMALS: patient oriented x3 and moves all extremities SENSORIUM/ORIENTATION: Yes alert Skin: COMMON NORMALS: no rashes or lesions noted GENERAL SKIN EXAM: no rashes or lesions noted Data : 05/30/22 15:20 05/30/22 15:20 A&P Assessment and plan (1) Unstable angina pectoris: Restart aspirin, received Lovenox, continue therapeutic dose. Start statin. He is not on beta-jacquelin but is bradycardic, hold off on beta-jacquelin for now. Concern for unstable angina, concern for possibility of in-stent restenosis given he has not been on antiplatelet medication for a while. Complete troponin EKG series. Assess TTE. Monitor on telemetry. Appreciate cardiology evaluation given the above history. Status: Acute (2) CAD (coronary artery disease): History of stents, most recently 2 years ago down in [place]. Status: Chronic (3) Acute diverticulitis: Also noted to have mild acute diverticulitis. No signs of sepsis. Cipro Flagyl. CLD. Status: Acute Plan BPH History of prostatitis DM2 GREG on CPAP HLD HTN GERD Chronic back pain Other chronic comorbidities Attestations Medical Necessity Statement*: Place in observation for additional assessment and management of unstable angina and gentleman with underlying CAD. 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
[2022-05-30 18:23] LABS: Troponin 5 2HR 24.92 ng/L (0-15)
[2022-05-30 18:29] LABS: Troponin 5 2HR Delta -2.08 ABS# (0-10)
[2022-05-30 18:30] VITALS: BP 125/46; PULSE 48; RESP 16; O2SAT 96
[2022-05-30] MEDS: ampicillin-sulbactam 3 GM in sodium chloride 0.9% (plus) 50 ML IV (18:39)
[2022-05-30] MEDS: enoxaparin 120 mg/0.8 mL Syringe SUBCUT (18:39)
--- NOTE | 2022-05-30 18:45 | PC.NURSE ---
PT PLACED ON CONTINUOUS NIBP, SPO2, AND CM
[2022-05-30] MEDS: aspirin 325 mg Tablet PO (18:57)
[2022-05-30 20:00] VITALS: BP 143/74; PULSE 50; RESP 19; TEMP 36.2; O2SAT 98
--- NOTE | 2022-05-30 21:04 | ECG_ITS ---
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 Measurements Intervals [place] Rate: 45 P: 69 [place]: 236 QRS: -14 QRSD: 106 T: 18 QT: 466 QTc: 404 Interpretive Statements SINUS BRADYCARDIA WITH FIRST DEGREE AV BLOCK INFERIOR MYOCARDIAL INFARCTION , PROBABLY OLD [40+ ms Q WAVE AND/OR ST/T ABNORMALITY IN II/aVF] Compared to ECG 05/30/2022 17:04:25 Myocardial infarct finding now present Intraventricular conduction delay no longer present Electronically Signed On 05-30-2022 23:43:19 CDT by Guicho Goff M.D. [id number]
[2022-05-30] MEDS: ciprofloxacin 400 MG/200 ML PREMIX 200 MG IV (22:08)
[2022-05-30] MEDS: pantoprazole DR 40 mg Tablet PO (22:15)
[2022-05-30] MEDS: atorvastatin 40 mg Tablet PO (22:16)
[2022-05-30] MEDS: acetaminophen 325 mg Tablet 650 MG PO (22:24)
[2022-05-30 22:33] LABS: Troponin 5 6HR 25.19 ng/L (0-15); Troponin 5 6HR Delta -1.81 ng/L (0-12)
[2022-05-30] MEDS: metroNIDAZOLE IV 500 MG/100 ML PREMIX 100 MG IV (23:20)
[2022-05-31] VITALS (8 sets, daily range): BP systolic 128–147; BP diastolic 68–81; PULSE 47–56; RESP 15–20; TEMP 36.3–37.3; O2SAT 91–97
[2022-05-31] MEDS: metroNIDAZOLE IV 500 MG/100 ML PREMIX 100 MG IV ×3 (05:24→21:48)
[2022-05-31] MEDS: enoxaparin 120 mg/0.8 mL Syringe SUBCUT ×2 (05:25→17:25)
[2022-05-31 05:49] LABS: Basophils % 0.8 %; Eosinophils # 0.2 10^3/uL (0.0-0.8); Eosinophils % 4.8 %; Hematocrit 51.4 % (42.0-52.0); Hemoglobin 16.2 g/dL (11.7-16.6); Lymphocytes # 1.5 10^3/uL (0.8-4.8); Lymphocytes % 30.6 %; Mean Corpuscular HGB Conc 31.5 g/dL (30.0-36.0); Mean Corpuscular Hemoglobin 29.8 pg (28.0-34.0); Mean Corpuscular Volume 94.5 fl (80-94); Mean Platelet Volume 8.9 fL (7.4-10.4); Monocytes # 0.4 10^3/uL (0.2-0.9); Monocytes % 8.7 %; Neutrophils # 2.72 10^3/uL (1.8-7.7); Neutrophils % 54.9 %; Nucleated Red Blood Cells % 0 %; Platelet Count 220 10^3/cmm (130-400); Red Blood Count 5.44 10^6/uL (4.1-5.3); Red Cell Distribution Width 12.7 % (12.1-15.1)
[2022-05-31 06:15] LABS: Anion Gap 13.9 (5-19); Blood Urea Nitrogen 14 mg/dL (8-23); Calcium 8.9 mg/dL (8.5-10.5); Carbon Dioxide 26 mmol/L (22-29); Chloride 102 mmol/L (98-107); Glucose 121 mg/dL (65-115); Osmolality Calculated 288 mOsm/kg (285-295); Potassium 3.9 mmol/L (3.5-5.1); Sodium 138 mmol/L (136-145)
--- NOTE | 2022-05-31 08:56 | P.CONIM_ITS ---
Providers/Reason For Consult Consulting Physician/Specialty*: Dr. Benitez, Cardiology Reason for Consult*: Chest pain, h/o CAD Attending Physician: Dwayne Todd Primary Care Provider: RUSSELL Ghotra History of Present Illness History of Present Illness Mo Van is a 77 year old male with past medical history of hypertension, type 2 diabetes mellitus, BPH, hypothyroidism, coronary artery disease s/p stents x2 few years back at [place] and dyslipidemia. He used to follow-up with Dr. Holly and because of recurrent chest pains and normal stress test that did not show any obstructive coronary artery disease and patent LCx stent. He has stopped taking aspirin and Plavix and I am not sure if he was taking any of antihypertensive meds. He describes chest pain as sharp knifelike with radiation to his arm with shortness of breath and intermittent dizziness. Patient states his blood pressure has been good at home. He has previously been intolerant to isosorbide due to headache and metoprolol due to bradycardia. EKG with sinus bradycardia. Intraventricular conduction delay. Old inferior myocardial infarction. Baseline troponin T 27 at 2 hours 25 and at 6hr 25. Review of Systems Const: Denies: fever(s), chills, body aches or malaise Eyes: Denies: change in vision, eye discomfort or eye redness ENMT: Denies: throat pain, oral sores or ear or mastoid pain Card: Reports: chest pain; Denies: edema, pre-syncope or dyspnea on exertion Resp: Reports: dyspnea; Denies: productive cough, change in phlegm color or hemoptysis GI: Reports: abdominal pain (LLQ); Denies: nausea, vomiting, diarrhea, constipation, hematochezia or melena : Denies: flank pain, difficulty urinating, urinary frequency or hematuria Musc: Denies: back pain, joint swelling or joint redness Skin/Breast: Denies: rash or new lesions Neuro: Denies: headache(s), numbness in extremities, weakness in extremities, dizziness, confusion or seizure-like activity Endo: Denies: polyuria or polydipsia Sujit/Lymph: Denies: easy bleeding or tender lymph nodes All/Imm: Denies: urticaria or tongue swelling Medications/Allergies Home Medications Medication Instructions Recorded Confirmed Last Taken Type diabetic shoes #1 ea 10/18/20 05/30/22 Unknown Rx nitroglycerin 400 mcg/spray 1 spray translingual Q5M PRN chest 11/14/20 05/30/22 Unknown Rx translingual pain #4.9 grams bzirahlj-wssxdlnga-nxxqfgjht 3.5 4 drp otic (ear) TID 10 days #10 mL 07/18/21 05/30/22 Unknown Rx mg-10,000 unit/mL-1 % ear drops,susp Diabetic shoes with inserts #1 ea 12/02/21 05/30/22 Unknown Rx chlorhexidine gluconate 0.12 % 15 ml buccal BID #473 mL 12/26/21 05/30/22 Unknown Rx mouthwash (Peridex) CPAP machine and supplies #1 ea 02/10/22 05/30/22 Unknown Rx blood sugar diagnostic (OneTouch #50 ea 02/10/22 05/30/22 Unknown Rx Ultra Test) blood-glucose meter (OneTouch #1 ea 02/10/22 05/30/22 Unknown Rx Ultra2 Meter) empagliflozin 10 mg tablet 10 mg PO QAM #90 tabs 02/27/22 05/30/22 Unknown Rx (Jardiance) finasteride 5 mg tablet 5 mg PO QDAY #90 tabs 02/27/22 05/30/22 Unknown Rx furosemide 20 mg tablet 20 mg PO QAM PRN edema #90 tabs 02/27/22 05/30/22 Unknown Rx gabapentin 800 mg tablet 800 mg PO TID #270 tabs 02/27/22 05/30/22 Unknown Rx levothyroxine 200 mcg tablet 200 mcg PO DAILY #90 tabs 02/27/22 05/30/22 Unknown Rx potassium chloride 10 mEq 10 meq PO QDAY PRN with fluid pill 02/27/22 05/30/22 Unknown Rx tablet,extended release (Klor-Con) #90 tabs valsartan 40 mg tablet (Diovan) 40 mg PO DAILY #90 tabs 02/27/22 05/30/22 Unknown Rx Knee brace L1851 #2 ea 03/21/22 05/30/22 Unknown Rx Diabetic Shoes with 3 Insoles #1 ea 04/23/22 05/30/22 Unknown Rx tamsulosin 0.4 mg capsule 0.4 mg PO QDAY #90 caps 05/09/22 05/30/22 Unknown Rx Allergies Allergy/AdvReac Type Severity Reaction Status Date / Time No Known Allergies Allergy Verified 05/30/22 13:14 Current Medications Generic Name Dose Route Start Last Admin Trade Name Yaya PRN Reason Stop Dose Admin Acetaminophen 650 mg 05/30/22 19:47 05/30/22 22:24 Acetaminophen 325 Mg Tablet PO 650 mg Q6H PRN Administration Mild/Mod Pain Or Temp >/= 101 Aspirin 325 mg 05/30/22 18:10 05/30/22 18:57 Aspirin 325 Mg Tablet PO 325 mg DAILY PARISH Administration Atorvastatin Calcium 40 mg 05/30/22 21:00 05/30/22 22:16 Atorvastatin 40 Mg Tablet PO 40 mg BEDTIME PARISH Administration Enoxaparin Sodium 120 mg 05/31/22 05:30 05/31/22 05:25 Enoxaparin 120 Mg/0.8 Ml Syringe SUBCUT 120 mg Q12H PARISH Administration Ciprofloxacin/Dextrose 400 mg in 200 mls @ 200 mls/hr 05/30/22 19:47 05/30/22 22:08 Cipro IV 200 mls/hr Q12H PARISH Administration Protocol Metronidazole 500 mg in 100 mls @ 100 mls/hr 05/30/22 19:47 05/31/22 05:24 Flagyl Iv IV 100 mls/hr Q8H PARISH Administration Protocol Pantoprazole Sodium 40 mg 05/30/22 19:47 05/30/22 22:[address] 40 Mg Tablet PO 40 mg DAILY PARISH Administration PFSH Acute PFSH: Medical History Adult onset hypothyroidism Allergic rhinitis due to allergen Arteriosclerosis of coronary artery Bilateral hearing loss due to cerumen impaction BPH loc w urin obs/LUTS Good response and durably so to dual medical therapy of FINASTERIDE/TAMSULOSIN (single dose) CAD (coronary artery disease) Chest pain at rest Chronic prostatitis On self treatment with CIPROFLOXACIN. Sporadic treatment required. Controlled diabetes mellitus with hyperglycemia, without long-term current use of insulin DDD (degenerative disc disease), lumbar Dependence on nocturnal oxygen therapy Diverticula, colon Dizziness and giddiness DM autonomic neuropathy Dyslipidemia Essential (primary) hypertension GERD (gastroesophageal reflux disease) GREG on CPAP Osteoarthritis, knee Pain in thoracic spine at multiple sites Urinary hesitancy Vitamin D insufficiency Surgical History H/O rectal polypectomy History of angiography With stent placement History of appendectomy History of carotid artery disease surgery right bilateral 2007 History of cataract surgery right and left History of cholecystectomy History of colonoscopy 2017 repeat in 3 years History of hernia repair Left History of surgery on arm right skin graft age 17 History of surgical amputation of finger of right hand age 17 Family History Mother Cancer Father CAD (coronary artery disease) Stroke Denies family history of Bleeding disorder Social History Smoking and tobacco status: former smoker Second hand smoke exposure: No Smoking risk assessment/counseling performed?: No Alcohol intake: never Desire information about alcohol rehabilitation?: No Counseling given: No Desire information about substance/drug rehabilitation?: No Counseling given: No Adopted: No Caregiver/support person: No Lives independently: Yes Household members: spouse Housing: House Marital status: service: No Current occupational status: employed History of recent travel: No Current gender identity: Male Vitals/I&O/Wt Last Vital Signs Temp 97.3 F L 05/31/22 08:00 Pulse 47 L 05/31/22 08:00 Resp 15 05/31/22 08:00 BP 147/68 05/31/22 08:00 Pulse Ox 93 05/31/22 08:00 O2 Del Method 05/31/22 08:00 05/30/22 05/31/22 05/31/22 22:59 06:59 14:59 Intake Total 480 / 480 200 / 680 Output Total 1100 / 1100 Balance 480 / 480 -900 / -420 Weight last 48 hrs Weight 266 lb 3.2 oz Weight 268 lb Physical Exam Const: COMMON NORMALS: no acute distress, patient oriented x3 and alert GENERAL APPEARANCE: cooperative, comfortable, well kempt and well hydrated OTHER: obese HENMT: COMMON NORMALS: hearing grossly normal bilaterally, external ears normal and moist oral mucous membranes FACE & SINUS: normal facial exam NOSE: Normal septum present and No nasal discharge present; no Epistaxis present EXTERNAL EAR: Yes external ears normal MOUTH: lip normal Eye: COMMON NORMALS: EOMs intact bilaterally and no scleral icterus GENERAL EYE: appearance normal, both eyes and all related structures ALIGNMENT: Yes alignment normal Neck/C-Spine: COMMON NORMALS: no lymphadenopathy, supple and no JVD GENERAL: Yes normal visual inspection and Yes trachea midline CAROTIDS: Yes normal carotid upstroke Lymph: LYMPHATIC: no lymphadenopathy noted Chest: COMMONS NORMALS: normal inspection of the chest and normal palpation of entire chest wall CHEST: Yes Symmetrical chest wall rise and No tenderness Resp: COMMON NORMALS: clear to auscultation bilaterally EFFORT & INSPECTION: Yes able to speak in complete sentences and No respiratory distress AUSCULTATION: clear to auscultation bilaterally, no crackles, no rales, no rhonchi and no wheezes Cardio: COMMON NORMALS: no JVD, regular rate, regular rhythm, S1 normal heart sound present, S2 normal heart sound present and Peripheral pulses 2+ throughout PALPATION: normal PMI RATE: regular rate RHYTHM: regular rhythm HEART SOUNDS: S1 normal heart sound present, S2 normal heart sound present, no click, no gallops and no murmurs BRUITS: no carotid bruits PERIPHERAL PULSES: Peripheral pulses 2+ throughout, radial pulses present, posterior tibial pulses present and dorsalis pedis present GI: COMMON NORMALS: Soft to palpation AUSCULTATION: Yes normoactive bowel sounds PALPATION: Yes Soft to palpation, No Tenderness to palpation present (GI), No Guarding due to palpation present (GI) and No Rigid due to palpation PERCUSSION: tympanic to percussion Extremity: GENERAL: No clubbing, No cyanosis, Yes edema and No pallor Neuro: COMMON NORMALS: patient oriented x3, CN's II-XII intact bilaterally and no focal motor deficits SENSORIUM/ORIENTATION: Yes alert Psych: COMMON NORMALS: Normal thought process present and speech normal APPEARANCE: Yes well kempt SPEECH: Yes normal speech MOOD & AFFECT: Yes euthymic mood THOUGHT PROCESS: Normal thought process present THOUGHT CON TENT: Yes Normal thought content present Data : 05/31/22 05:38 05/31/22 05:38 Other Labs: Hemoglobin A1c 6.4. Cholesterol panel with total cholesterol 230, triglyceride 283, LDL 136 and HDL 37. TSH 2.59. A&P Assessment and plan (1) Chest pain: Normal LV function with no regional wall motion abnormality, flat troponins and no EKG changes. -History of recurrent chest pains. -Plan for stress test on Thursday. -Continue aspirin, statin and start on low-dose amlodipine. -May continue nitroglycerin sublingual as needed. Status: Acute (2) CAD (coronary artery disease): History of circumflex stent that showed no obstructive coronary artery disease Status: Chronic (3) Dyslipidemia: Status: Chronic (4) Essential (primary) hypertension: Status: Chronic (5) Controlled diabetes mellitus with hyperglycemia, without long-term current use of insulin: Status: Chronic Qualifiers: Diabetes mellitus type: type 2 Qualified Code(s): E11.65 - Type 2 diabetes mellitus with hyperglycemia Plan Hypothyroidism Diabetic neuropathy BPH Mild diverticulitis Thank you for allowing me to participate in patient's care. Please feel free to call with questions or concerns. 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
[2022-05-31] MEDS: ciprofloxacin 400 MG/200 ML PREMIX 200 MG IV ×2 (09:32→20:04)
[2022-05-31] MEDS: pantoprazole DR 40 mg Tablet PO (09:33)
[2022-05-31] MEDS: aspirin 325 mg Tablet PO (09:33)
[2022-05-31] MEDS: amlodipine 5 mg Tablet 2.5 MG PO (10:29)
[2022-05-31] MEDS: atorvastatin 40 mg Tablet PO (20:14)
[2022-05-31] MEDS: acetaminophen 325 mg Tablet 650 MG PO (20:14)
--- NOTE | 2022-05-31 21:43 | PM.PN ---
Subjective Subjective: He denies any further episodes of chest pain so far. Denies trouble breathing. States he is hungry. Vitals/I&O/Wt Last Vital Signs Temp 99.1 F 05/31/22 20:00 Pulse 52 L 05/31/22 20:00 Resp 18 05/31/22 20:00 BP 138/72 05/31/22 20:00 Pulse Ox 95 05/31/22 20:00 O2 Del Method 05/31/22 16:00 05/31/22 05/31/22 05/31/22 06:59 14:59 22:59 Intake Total 400 / 880 590 / 590 460 / 1050 Output Total 1100 / 1100 Balance -700 / -220 590 / 590 460 / 1050 Weight last 48 hrs Weight 120.746 kg Weight 121.563 kg Physical Exam Const: COMMON NORMALS: patient oriented x3 and alert GENERAL APPEARANCE: cooperative ORIENTATION/CONSCIOUSNESS: Yes awake HENMT: COMMON NORMALS: oropharynx normal Neck/C-Spine: COMMON NORMALS: no JVD Resp: COMMON NORMALS: normal respiratory effort and clear to auscultation bilaterally AUSCULTATION: clear to auscultation bilaterally Cardio: COMMON NORMALS: no JVD, regular rhythm, S1 normal heart sound present, S2 normal heart sound present and No murmurs present (Cardio) RHYTHM: regular rhythm HEART SOUNDS: S1 normal heart sound present and S2 normal heart sound present GI: COMMON NORMALS: Normal to inspection, nondistended, normoactive bowel sounds present and Soft to palpation PALPATION: Yes Soft to palpation Extremity: COMMON NORMALS: no joint enlargement and no pedal edema OTHER: Right digit amputation Neuro: COMMON NORMALS: patient oriented x3 and moves all extremities SENSORIUM/ORIENTATION: Yes alert Skin: COMMON NORMALS: no rashes or lesions noted GENERAL SKIN EXAM: no rashes or lesions noted Data : 05/31/22 05:38 05/31/22 05:38 A&P Assessment and plan (1) Chest pain: Cardiology assessment appreciated. Does have some history of recurrent chest pains in the past as well even shortly after stent placement. However, with cardiac risk factors, recurrent chest pain, stress test planned for Thursday. Discussed with him, he is in agreement. TTE with normal EF, no R WMA. Monitor on telemetry. Appreciate cardiology evaluation given the above history. Status: Acute (2) Unstable angina pectoris: Likely not unstable angina. Status: Acute (3) CAD (coronary artery disease): History of stents, most recently 2 years ago down in [place]. Status: Chronic (4) Acute diverticulitis: Also noted to have mild acute diverticulitis. No signs of sepsis. He is doing well. Trial of advancing diet. Trini Simons. Status: Acute Plan BPH History of prostatitis DM2 GREG on CPAP HLD HTN GERD Chronic back pain Other chronic comorbidities Attestations Medical Necessity Statement*: Continue admission for hospital management of recurrent chest pain and gentleman with underlying CAD. Coding Level of Care Code Acute Communications Department Chair for [facility] Fwd Diagnoses Chest pain R07.9 Unstable angina pectoris I20.0 CAD (coronary artery disease) I25.10 Acute diverticulitis K57.92
[2022-06-01] VITALS (10 sets, daily range): BP systolic 128–173; BP diastolic 74–93; PULSE 48–78; RESP 16–20; TEMP 36.4–37.1; O2SAT 93–95
[2022-06-01] MEDS: enoxaparin 120 mg/0.8 mL Syringe SUBCUT ×2 (05:21→16:59)
[2022-06-01] MEDS: metroNIDAZOLE IV 500 MG/100 ML PREMIX 100 MG IV ×3 (05:21→21:03)
[2022-06-01 06:00] LABS: Basophils # 0.1 10^3/uL (0.0-0.1); Eosinophils # 0.3 10^3/uL (0.0-0.8); Eosinophils % 5.8 %; Hematocrit 50.2 % (42.0-52.0); Hemoglobin 15.6 g/dL (11.7-16.6); Lymphocytes # 1.7 10^3/uL (0.8-4.8); Lymphocytes % 34.5 %; Mean Corpuscular HGB Conc 31.1 g/dL (30.0-36.0); Mean Corpuscular Hemoglobin 29.5 pg (28.0-34.0); Mean Corpuscular Volume 94.9 fl (80-94); Mean Platelet Volume 9.2 fL (7.4-10.4); Monocytes # 0.5 10^3/uL (0.2-0.9); Monocytes % 9.3 %; Neutrophils # 2.48 10^3/uL (1.8-7.7); Neutrophils % 49.2 %; Nucleated Red Blood Cells % 0 %; Platelet Count 228 10^3/cmm (130-400); Red Blood Count 5.29 10^6/uL (4.1-5.3); Red Cell Distribution Width 12.5 % (12.1-15.1)
[2022-06-01 06:23] LABS: Anion Gap 13.8 (5-19); Blood Urea Nitrogen 14 mg/dL (8-23); Calcium 8.9 mg/dL (8.5-10.5); Carbon Dioxide 25 mmol/L (22-29); Chloride 104 mmol/L (98-107); Glucose 125 mg/dL (65-115); Osmolality Calculated 290 mOsm/kg (285-295); Potassium 3.8 mmol/L (3.5-5.1); Sodium 139 mmol/L (136-145)
[2022-06-01] MEDS: ciprofloxacin 400 MG/200 ML PREMIX 200 MG IV ×2 (07:07→19:51)
[2022-06-01] MEDS: aspirin 325 mg Tablet PO (09:31)
[2022-06-01] MEDS: pantoprazole DR 40 mg Tablet PO (09:31)
[2022-06-01] MEDS: amlodipine 5 mg Tablet 2.5 MG PO ×2 (09:31→13:38)
--- NOTE | 2022-06-01 09:57 | P.PN_ITS ---
Subjective Subjective: No CP, c.o pain in right lower abdomen and back Medications: Reviewed: Yes Vitals/I&O/Wt Last Vital Signs Temp 98.7 F 06/01/22 04:00 Pulse 50 L 06/01/22 08:00 Resp 17 06/01/22 08:00 BP 157/82 06/01/22 08:00 Pulse Ox 93 06/01/22 08:00 O2 Del Method 06/01/22 08:00 05/31/22 06/01/22 06/01/22 22:59 06:59 14:59 Intake Total 760 / 1350 1400 / 2750 440 / 440 Balance 760 / 1350 1400 / 2750 440 / 440 Weight last 48 hrs Weight 264 lb Weight 266 lb 3.2 oz Weight 268 lb Physical Exam Const: COMMON NORMALS: no acute distress, patient oriented x3 and alert GENERAL APPEARANCE: cooperative, comfortable, well kempt and well hydrated OTHER: obese HENMT: COMMON NORMALS: hearing grossly normal bilaterally, external ears nor mal and moist oral mucous membranes FACE & SINUS: normal facial exam NOSE: No nasal discharge present; no Epistaxis present EXTERNAL EAR: Yes external ears normal MOUTH: lip normal Eye: COMMON NORMALS: EOMs intact bilaterally and no scleral icterus GENERAL EYE: appearance normal, both eyes and all related structures ALIGNMENT: Yes alignment normal Neck/C-Spine: COMMON NORMALS: no lymphadenopathy, supple and no JVD GENERAL: Yes normal visual inspection and Yes trachea midline CAROTIDS: Yes normal carotid upstroke Lymph: LYMPHATIC: no lymphadenopathy noted Chest: COMMONS NORMALS: normal inspection of the chest and normal palpation of entire chest wall CHEST: Yes Symmetrical chest wall rise and No tenderness Resp: COMMON NORMALS: clear to auscultation bilaterally EFFORT & INSPECTION: Yes able to speak in complete sentences and No respiratory distress AUSCULTATION: clear to auscultation bilaterally, no crackles, no rales, no rhonchi and no wheezes Cardio: COMMON NORMALS: no JVD, regular rate, regular rhythm, S1 normal heart sound present, S2 normal heart sound present and Peripheral pulses 2+ throughout PALPATION: normal PMI RATE: regular rate RHYTHM: regular rhythm H EART SOUNDS: S1 normal heart sound present, S2 normal heart sound present, no click, no gallops and no murmurs BRUITS: no carotid bruits PERIPHERAL PULSES: Peripheral pulses 2+ throughout, radial pulses present, posterior tibial pulses present and dorsalis pedis present GI: COMMON NORMALS: Soft to palpation AUSCULTATION: Yes normoactive bowel sounds PALPATION: Yes Soft to palpation, No Guarding due to palpation present (GI) and No Rigid due to palpation Extremity: GENERAL: No clubbing, No cyanosis, Yes edema and No pallor Neuro: COMMON NORMALS: patient oriented x3, CN's II-XII intact bilaterally and no focal motor deficits SENSORIUM/ORIENTATION: Yes alert Psych: COMMON NORMALS: Normal thought process present and speech normal APPEARANCE: Yes well kempt SPEECH: Yes normal speech MOOD & AFFECT: Yes euthymic mood THOUGHT PROCESS: Normal thought process present THOUGHT CONTENT: Yes Normal thought content present Data : 06/01/22 05:13 06/01/22 05:13 A&P Assessment and plan (1) Chest pain: Normal LV function with no regional wall motion abnormality, flat troponins and no EKG changes. -History of recurrent chest pains. -Plan for stress test on Thursday. -Continue aspirin, statin and started on low-dose amlodipine. -May continue nitroglycerin sublingual as needed. Status: Acute (2) CAD (coronary artery disease): History of circumflex stent that showed no obstructive coronary artery disease Status: Chronic (3) Dyslipidemia: Status: Chronic (4) Essential (primary) hypertension: Status: Chronic (5) Controlled diabetes mellitus with hyperglycemia, without long-term current use of insulin: Status: Chronic Qualifiers: Diabetes mellitus type: type 2 Qualified Code(s): E11.65 - Type 2 diabetes mellitus with hyperglycemia Plan Hypothyroidism Diabetic neuropathy BPH Mild diverticulitis GREG on CPAP at home Bradycardia: Thank you for allowing me to participate in patient's care. Please feel free to call with questions or concerns. 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
--- NOTE | 2022-06-01 14:05 | P.PN_ITS ---
Subjective Subjective: No left lower quadrant pain, butDenies any further chest pain or pressure. Has had right lower quadrant discomfort today as well as discomfort across lower abdomen. No nausea or vomiting. Had a bowel movement yesterday which was he states usual consistency. Not diarrhea. No blood or melena. Vitals/I&O/Wt Last Vital Signs Temp 98.4 F 06/01/22 12:00 Pulse 51 L 06/01/22 12:00 Resp 17 06/01/22 12:00 BP 128/74 06/01/22 12:00 Pulse Ox 95 06/01/22 12:00 O2 Del Method 06/01/22 12:00 05/31/22 06/01/22 06/01/22 22:59 06:59 14:59 Intake Total 760 / 1350 1400 / 2750 440 / 440 Balance 760 / 1350 1400 / 2750 440 / 440 Weight last 48 hrs Weight 119.748 kg Weight 120.746 kg Weight 121.563 kg Physical Exam Const: COMMON NORMALS: patient oriented x3 and alert GENERAL APPEARANCE: cooperative ORIENTATION/CONSCIOUSNESS: Yes awake HENMT: COMMON NORMALS: oropharynx normal Neck/C-Spine: COMMON NORMALS: no JVD Resp: COMMON NORMALS: normal respiratory effort and clear to auscultation bilaterally AUSCULTATION: clear to auscultation bilaterally Cardio: COMMON NORMALS: no JVD, regular rhythm, S1 normal heart sound present, S2 normal heart sound present and No murmurs present (Cardio) RHYTHM: regular rhythm HEART SOUNDS: S1 normal heart sound present and S2 normal heart sound present GI: COMMON NORMALS: Normal to inspection, nondistended, normoactive bowel sounds present and Soft to palpation PALPATION: Yes Soft to palpation Extremity: COMMON NORMALS: no joint enlargement and no pedal edema OTHER: RUE digit amputation Neuro: COMMON NORMALS: patient oriented x3 and moves all extremities SENSORIUM/ORIENTATION: Yes alert Skin: COMMON NORMALS: no rashes or lesions noted GENERAL SKIN EXAM: no rashes or lesions noted Data : 06/01/22 05:13 06/01/22 05:13 A&P Assessment and plan (1) Chest pain: Stress test in the morning. TTE with normal EF, no R WMA. Monitor on telemetry. Appreciate cardiology evaluation given the above history. Status: Acute (2) Acute diverticulitis: Some lower abdominal and right lower quadrant pain today. Discussed with him will de-escalate diet back to clear liquids for now. Continue antibiotic coverage. In case spiking fever, worse pain, or other concerning symptoms, consider reimaging. Trini Simons. Will need colonoscopy after resolution in 4-6 weeks. Status: Acute (3) Unstable angina pectoris: Likely not unstable angina. Status: Acute (4) CAD (coronary artery disease): History of stents, most recently 2 years ago [place] in [place]. Status: Chronic Plan BPH History of prostatitis DM2 GREG on CPAP HLD HTN GERD Chronic back pain Other chronic comorbidities Attestations Medical Necessity Statement*: Continue admission for assessment management of episodes of chest pain and gentleman with history of CAD and stenting, additional cardiac assessment with stress testing tomorrow, management of some worsening of acute diverticulitis. Coding Level of Care Code Acute Process Control Technician for [facility] Fwd Diagnoses Chest pain R07.9 Acute diverticulitis K57.92 Unstable angina pectoris I20.0 CAD (coronary artery disease) I25.10
[2022-06-01] MEDS: atorvastatin 40 mg Tablet PO (20:58)
[2022-06-02] VITALS (8 sets, daily range): BP systolic 106–156; BP diastolic 62–82; PULSE 50–74; RESP 16; TEMP 36.4–36.6; O2SAT 93
--- NOTE | 2022-06-02 | ECG_ITS ---
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 Interpretive Statements NAME OF STUDY: LEXISCAN SESTAMIBI STRESS TEST INDICATION: Chest Pain PROCEDURE: At the baseline, the blood pressure was 138/78 mmHg with a heart rate of 54 bpm. The electrocardiogram showed sinus bradycardia with first-degree AV block, inferior KS probably old. The Lexiscan was infused over a period of 20 seconds. A total of 0.4 milligrams of Lexiscan was infused. The stress phase was continued for a total of 5 minutes. Heart rate at the end of the stress phase was 75 bpm with a blood pressure of 175/74 mmHg. The EKG at the peak infusion revealed sinus rhythm with no significant ST-T wave changes. Sestamibi was injected 20 seconds after the Lexiscan infusion. Blood pressure at the end of the recovery phase was 129/69 mmHg with a heart rate of 72 beats per minute. CONCLUSION: 1. No significant EKG changes with the LexiScan infusion. 2. No LexiScan induced chest pain or cardiac arrhythmia. 3. Normal blood pressure and heart rate response. 4. Sestamibi/sestamibi perfusion scan pending; see separate report. Electronically Signed On 06-02-2022 13:01:29 CDT by Rachell Benitez M.D. [id number]
[2022-06-02] MEDS: enoxaparin 120 mg/0.8 mL Syringe SUBCUT (04:50)
[2022-06-02] MEDS: simethicone 80 mg Chew PO (04:50)
[2022-06-02] MEDS: metroNIDAZOLE IV 500 MG/100 ML PREMIX 100 MG IV (05:00)
[2022-06-02 06:07] LABS: Anion Gap 12.7 (5-19); Blood Urea Nitrogen 12 mg/dL (8-23); Calcium 9.2 mg/dL (8.5-10.5); Carbon Dioxide 27 mmol/L (22-29); Chloride 104 mmol/L (98-107); Glucose 127 mg/dL (65-115); Osmolality Calculated 291 mOsm/kg (285-295); Potassium 3.7 mmol/L (3.5-5.1); Sodium 140 mmol/L (136-145)
[2022-06-02] MEDS: regadenoson 0.4 Mg/5 ml Syringe IVP (07:29)
--- NOTE | 2022-06-02 07:31 | PC.NURSE ---
Off floor for stress test
--- NOTE | 2022-06-02 08:39 | PM.PN ---
Subjective Subjective: No CP, c.o pain in right lower abdomen and back. Had stress test this morning Medications: Reviewed: Yes Vitals/I&O/Wt Last Vital Signs Temp 97.9 F 06/02/22 04:28 Pulse 74 06/02/22 07:41 Resp 16 06/02/22 04:28 BP 129/69 06/02/22 07:41 Pulse Ox 93 06/02/22 04:28 O2 Del Method 06/02/22 04:28 06/01/22 06/02/22 06/02/22 22:59 06:59 14:59 Intake Total 760 / 1440 220 / 1660 Balance 760 / 1440 220 / 1660 Weight last 48 hrs Weight 263 lb 1.6 oz Weight 264 lb Physical Exam Const: COMMON NORMALS: no acute distress, patient oriented x3 and alert GENERAL APPEARANCE: cooperative, comfortable, well kempt and well hydrated OTHER: obese HENMT: COMMON NORMALS: hearing grossly normal bilaterally, external ears normal and moist oral mucous membranes FACE & SINUS: normal facial exam NOSE: Normal septum present and No nasal discharge present; no Epistaxis present EXTERNAL EAR: Yes external ears normal MOUTH: lip normal Eye: COMMON NORMALS: EOMs intact bilaterally and no scleral icterus GENERAL EYE: appearance normal, both eyes and all related structures ALIGNMENT: Yes alignment normal Neck/C-Spine: COMMON NORMALS: no lymphadenopathy, supple and no JVD GENERAL: Yes normal visual inspection and Yes trachea midline CAROTIDS: Yes normal carotid upstroke Lymph: LYMPHATIC: no lymphadenopathy noted Chest: COMMONS NORMALS: normal inspection of the chest and normal palpation of entire chest wall CHEST: Yes Symmetrical chest wall rise and No tenderness Resp: COMMON NORMALS: clear to auscultation bilaterally EFFORT & INSPECTION: Yes able to speak in complete sentences, No tachypneic, No respiratory distress, No pursed lip breathing, No labored and No Actively coughing AUSCULTATION: clear to auscultation bilaterally, no crackles, no rales, no rhonchi and no wheezes Cardio: COMMON NORMALS: no JVD, regular rate, regular rhythm, S1 normal heart sound present, S2 normal heart sound present and Peripheral pulses 2+ throughout PALPATION: normal PMI RATE: regular rate RHYTHM: regular rhythm HEART SOUNDS: S1 normal heart sound present, S2 normal heart sound present, no click, no gallops and no murmurs BRUITS: no carotid bruits PERIPHERAL PULSES: Peripheral pulses 2+ throughout, radial pulses present, posterior tibial pulses present and dorsalis pedis present GI: COMMON NORMALS: Soft to palpation AUSCULTATION: Yes normoactive bowel sounds PALPATION: Yes Soft to palpation, No Tenderness to palpation present (GI), No Guarding due to palpation present (GI) and No Rigid due to palpation PERCUSSION: tympanic to percussion Extremity: GENERAL: No clubbing, No cyanosis, Yes edema and No pallor Neuro: COMMON NORMALS: patient oriented x3, CN's II-XII intact bilaterally and no focal motor deficits SENSORIUM/ORIENTATION: Yes alert Psych: COMMON NORMALS: Normal thought process present and speech normal APPEARANCE: Yes well kempt SPEECH: Yes normal speech MOOD & AFFECT: Yes euthymic mood THOUGHT PROCESS: Normal thought process present THOUGHT CONTENT: Yes Normal thought content present Data : 06/01/22 05:13 06/02/22 05:24 A&P Assessment and plan (1) Chest pain: Normal LV function with no regional wall motion abnormality, flat troponins and no EKG changes. -History of recurrent chest pains. -No ischemia on stress test . -Continue aspirin, statin and amlodipine. -May continue nitroglycerin sublingual as needed. -stable to be discharged -f/u with Hiral in 2 weeks -f/u with in 6 months/as needed. Status: Acute (2) CAD (coronary artery disease): History of circumflex stent that showed no obstructive coronary artery disease Status: Chronic (3) Dyslipidemia: Status: Chronic (4) Essential (primary) hypertension: Status: Chronic (5) Controlled diabetes mellitus with hyperglycemia, without long-term current use of insulin: Status: Chronic Qualifiers: Diabetes mellitus type: type 2 Qualified Code(s): E11.65 - Type 2 diabetes mellitus with hyperglycemia Plan Hypothyroidism Diabetic neuropathy BPH Mild diverticulitis GREG on CPAP at home Bradycardia: Thank you for allowing me to participate in patient's care. Please feel free to call with questions or concerns. 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
--- NOTE | 2022-06-02 09:03 | PC.NURSE ---
Patient back from stress test
[2022-06-02] MEDS: aspirin 325 mg Tablet PO (09:18)
[2022-06-02] MEDS: pantoprazole DR 40 mg Tablet PO (09:18)
[2022-06-02] MEDS: ciprofloxacin 400 MG/200 ML PREMIX 200 MG IV (09:18)
[2022-06-02] MEDS: amlodipine 5 mg Tablet PO (09:18)
--- NOTE | 2022-06-02 12:15 | P.DS_ITS ---
Discharge Providers Date of Admission: 05/31/22 20:03 Date of Discharge: June 02, 2022 Attending Provider at Admission: Dwayne Todd Attending Provider at Discharge: Leisa Romero MD Primary Care Provider: RUSSELL Ghotra Diagnoses at Discharge Discharge Diagnosis (1) Chest pain: Status: Acute (2) CAD (coronary artery disease): Status: Chronic (3) Dyslipidemia: Status: Chronic (4) Essential (primary) hypertension: Status: Chronic (5) Controlled diabetes mellitus with hyperglycemia, without long-term current use of insulin: Status: Chronic Qualifiers: Diabetes mellitus type: type 2 Qualified Code(s): E11.65 - Type 2 diabetes mellitus with hyperglycemia Reason for Visit Reason for Visit: CHEST PAIN Hospital Course Hospital Course 77-year-old gentleman presented with recurrent episodes of chest pain, with history of CAD, stenting, appears were done several years ago in [place], completed a year of Plavix, and then stopped, and then also seems at some point stopped aspirin as well, seems perhaps concerned by his PCP so as not to cause bleeding from diverticular disease. On presentation here also found to have mild diverticulitis for which he was managed medically with bowel rest and started on antibiotics. Was restarted on antiplatelet. Studies not suggestive of acute KS. He underwent a stress test today which returned normal . He is tolerating a soft diet this morning, no vomiting, no diarrhea. Reports some lower abdominal discomfort and gas pain , no tenderness on abdominal exam. He has been afebrile and hemodynamically stable. he is eager to return home today to take care of his disabled at home. I have counseled him regarding warning signs of worsening diverticulitis including fever, worsening abdominal pain, inability to tolerate p.o. intake. He should return to the hospital for any worsening signs. Otherwise he is to complete a course of p.o. antibiotics over the next week. Follow-up as outpatient for colonoscopy as outpatient in 2 to 3 weeks. Physical Exam Narrative: General: No acute distress, AO x3 HEENT: PERRLA, pupils bilaterally equal and reactive, pallors not present Chest: Normal vesicular breath sounds, no added sounds, equal good air entry bilaterally CVS: S1-S2 regular, no murmurs, no tachycardia, no gallops, no rubs Abdomen: Soft, nontender, no organomegaly, bowel sounds present Neuro: No focal deficits, no facial deformity, AO x3, power 5/5 in all limbs Discharge Data Studies Completed and Pending Completed Studies During Hospitalization Category Date Time Status CT abdomen pelvis wo con [id number] Stat Cat Scan 05/30/22 16:19 Completed Sestamibi Stress Test Request Routine Exams 06/02/22 06:35 Draft XR chest 1V portable [id number] Stat Exams 05/30/22 15:03 Completed NM daniela perf SPECT r/s* [id number] Routine Nuc Med 06/02/22 12:35 Completed CV. echo complete* [id number] Stat Ultrasound 05/30/22 18:07 Completed Pending at discharge Category Date Time Status Sestamibi Stress Test Request Routine Exams 06/01/22 12:35 Stop Req Radiology Impressions Chest X-Ray 05/30/22 15:03 Impression: Atherosclerosis. Abdomen/Pelvis CT 05/30/22 16:19 IMPRESSION: 2. There is subtle haziness of the fat adjacent to a segment of the proximal sigmoid colon concerning for mild diverticulitis. No fluid collection, abscess or free air. 3. There is diffuse wall thickening of the colon but the colon is also mostly collapsed in this is probable lack of distension rather than diffuse colitis. Laboratory Results WBC 5.0 10^3/uL (4.0-10.0) 06/01/22 05:13 RBC 5.29 10^6/uL (4.1-5.3) 06/01/22 05:13 Hgb 15.6 g/dL (11.7-16.6) 06/01/22 05:13 Hct 50.2 % (42.0-52.0) 06/01/22 05:13 MCV 94.9 fl (80-94) H 06/01/22 05:13 MCH 29.5 pg (28.0-34.0) 06/01/22 05:13 MCHC 31.1 g/dL (30.0-36.0) 06/01/22 05:13 RDW 12.5 % (12.1-15.1) 06/01/22 05:13 Plt Count 228 10^3/cmm (130-400) 06/01/22 05:13 MPV 9.2 fL (7.4-10.4) 06/01/22 05:13 Neut % (Auto) 49.2 % 06/01/22 05:13 Lymph % (Auto) 34.5 % 06/01/22 05:13 [place] % (Auto) 9.3 % 06/01/22 05:13 Eos % (Auto) 5.8 % 06/01/22 05:13 Baso % (Auto) 1.0 % 06/01/22 05:13 Neut # (Auto) 2.48 10^3/uL (1.8-7.7) 06/01/22 05:13 Lymph # (Auto) 1.7 10^3/uL (0.8-4.8) 06/01/22 05:13 [place] # (Auto) 0.5 10^3/uL (0.2-0.9) 06/01/22 05:13 Eos # (Auto) 0.3 10^3/uL (0.0-0.8) 06/01/22 05:13 Baso # (Auto) 0.1 10^3/uL (0.0-0.1) 06/01/22 05:13 Nucleated RBC % (auto) 0 % 06/01/22 05:13 Nucleated RBCs # 0.0 /100WBC 06/01/22 05:13 Sodium 140 mmol/L (136-145) 06/02/22 05:24 Potassium 3.7 mmol/L (3.5-5.1) 06/02/22 05:24 Chloride 104 mmol/L (98-107) 06/02/22 05:24 Carbon Dioxide 27 mmol/L (22-29) 06/02/22 05:24 Anion Gap 12.7 (5-19) 06/02/22 05:24 BUN 12 mg/dL (8-23) 06/02/22 05:24 Creatinine 0.8 mg/dL (0.7-1.2) 06/02/22 05:24 GFR Calculation Not Reportable 06/02/22 05:24 Glucose 127 mg/dL (65-115) H 06/02/22 05:24 Calculated Osmolality 291 mOsm/kg (285-295) 06/02/22 05:24 Calcium 9.2 mg/dL (8.5-10.5) 06/02/22 05:24 Total Bilirubin 0.4 mg/dL (0.15-1.2) 05/30/22 15:20 AST 17 U/L (0-40) 05/30/22 15:20 ALT 19 U/L (0-41) 05/30/22 15:20 Alkaline Phosphatase 89 U/L (40-130) 05/30/22 15:20 Troponin T Baseline 27 ng/L (0-15) H 05/30/22 15:20 Troponin T 120 Minute 24.92 ng/L (0-15) H 05/30/22 17:26 Delta Troponin T -2.08 ABS# (0-10) L 05/30/22 17:26 Troponin T Hi Sens 6Hr 25.19 ng/L (0-15) H 05/30/22 21:52 Troponin T Hi Sens 6Hr Delta -1.81 ng/L (0-12) L 05/30/22 21:52 NT-Pro-B Natriuret Pep 138 pg/mL (0-450) 05/30/22 15:20 Total Protein 6.7 g/dL (6.6-8.7) 05/30/22 15:20 Albumin 3.8 g/dL (3.5-5.2) 05/30/22 15:20 Globulin 2.9 g/dL (1.3-4.6) 05/30/22 15:20 Patient: Mo Van Unit #: [id number] : 1945 Age/Sex: 77 / M ADM Date: 05/31/22 Loc: [facility] Room/Bed: [facility] Attending Dr: Leisa Romero MD Ordering Provider/Ordering MD: Rachell Benitez MD Date of Service: 06/02/22 Procedure(s): NM daniela perf SPECT r/s* [id number] Accession Number(s): [id number] Report Number: [id number] ?NM daniela perf SPECT r/s* [id number] ?Mo Van ?Age:? ? 77 ? ? Gender: ? ? M ?:? ? 1945 ?Exam Date: ? ? 06/02/2022 12:35 ?Ordering Phys: ? ? Rachell Benitez? ([email or web address]) ?Technologist:? ? ? Mariam Bonilla, ? DAM TENDER ASSISTANT ?Exam Location:? ? ? [facility] ?MRN:? ? [id number] ?Account Number: ? ? ? [id number] ?Indications:? ? ? CHEST PAIN ?STRESS TEST ?Please see separate stress test report in [facility] for full findings ?IMAGE PROTOCOL? ? ? Rest/Stress 1? Lexiscan ? Day ? Radiopharmaceutical ? Dose (mCi) ? Administration Site ? ? ? Administered by ?Rest:? Tc-99m? 10.9 ? IV? Todd Taylor, DAM TENDER ASSISTANT ? Sestamibi ?Stress:Tc-99m? 32.6 ? IV? MAURICE Estrada ? Sestamibi ?Rest:? ? 02-Jun-2022 ? 60 ? Discovery 630 ?Stress: ? ? 02-Jun-2022? 30 ? Discovery 630 ?0.4mg Lexiscan. Images obtained in supine and prone position. ?SPECT RESULTS ?Technical Quality: ? ? ? Excellent ?Raw Data Analysis:? ? ? Normal ?Image Corrections:? ? ? No attenuation or motion correction applied ?Summed Stress Score:? 2 ?Summed Rest Score: ? ? ? 0 ?Summed Difference Score: ? 2 ?PERFUSION FINDINGS ?SPECT images demonstrate homogeneous tracer distribution throughout the ?myocardium. ?FUNCTIONAL RESULTS ? ? (calculated via Gated SPECT) ? Stress Image LV EF (%):? ? 57 ? Stress EDV (mL):129? TID:? 0.87 ? Stress ESV (mL):55 ?FUNCTIONAL FINDINGS: ?The left ventricle is normal in size. Transient Ischemia Dilatation of 0.87. ?There is normal left ventricular systolic function. ?The left ventricular ejection fraction is normal with a value of 57%. ?There is normal left ventricular wall thickening with no regional wall motion ?abnormality. ?IMPRESSIONS ?1. Myocardial perfusion imaging is normal. ?2. Overall left ventricular systolic function is normal without regional wall ?motion abnormalities, LVEF=57%. ?3. EKG portion of the study will be reported separately. ?4. No change when compared to study dated 03/10/2019. Vitals Last Vital Signs Temp 97.8 F 06/02/22 12:00 Pulse 65 06/02/22 12:00 Resp 16 06/02/22 12:00 BP 146/76 06/02/22 12:00 Pulse Ox 93 06/02/22 12:00 O2 Del Method 06/02/22 12:00 Discharge Plan Discharge Patient Disposition: Home Condition: Stable Prescriptions: New amlodipine 5 mg Tablet 5 mg PO DAILY 30 Days Qty: 30 0RF aspirin 81 mg capsule 81 mg PO DAILY Qty: 30 2RF atorvastatin 40 mg Tablet 40 mg PO BEDTIME 30 Days Qty: 30 0RF pantoprazole 40 mg Tablet,Delayed Release (Dr/Ec) 40 mg PO DAILY 30 Days Qty: 30 0RF simethicone 80 mg Tablet,Chewable 80 mg PO QID PRN (Reason: Flatulence) 30 Days Qty: 30 0RF metronidazole 500 mg tablet 500 mg PO Q8H 7 Days Qty: 21 0RF Continued (DME) Diabetic shoes with inserts See Rx Instructions .Route .MEDSUPPLY Qty: 1 0RF Rx Instructions: As directed chlorhexidine gluconate [Peridex] 0.12 % mouthwash 15 ml buccal BID Qty: 473 2RF (DME) Knee brace L1851 See Rx Instructions .Route .MEDSUPPLY Qty: 2 0RF Rx Instructions: for right and left knees (DME) diabetic shoes See Rx Instructions .Route .MEDSUPPLY Qty: 1 0RF Rx Instructions: diabetic foot with callus formation and neuropathy. yyytgsmy-eyvisixmi-KD 3.5-10,000-1 mg/mL-unit/mL-% drops,suspension 4 drp otic (ear) TID 10 Days Qty: 10 0RF (DME) CPAP machine and supplies See Rx Instructions .ROUTE .MEDSUPPLY Qty: 1 0RF Rx Instructions: As directed ([facility]) OneTouch Ultra Test Strip See Rx Instructions .Route Qty: 50 5RF Rx Instructions: use 1 daily (DME) blood-glucose meter [OneTouch Ultra2 Meter] Kit See Rx Instructions .Route Qty: 1 0RF Rx Instructions: As directed (DME) Diabetic Shoes with 3 Insoles See Rx Instructions .Route .MEDSUPPLY Qty: 1 0RF Rx Instructions: As directed nitroglycerin 400 mcg/spray spray,non-aerosol 1 spray translingual Q5M PRN (Reason: chest pain) Qty: 4.9 0RF Rx Instructions: do not exceed 3 doses per episode Jardiance 10 mg tablet 10 mg PO QAM Qty: 90 0RF finasteride 5 mg tablet 5 mg PO QDAY Qty: 90 0RF furosemide 20 mg tablet 20 mg PO QAM PRN (Reason: edema) Qty: 90 0RF gabapentin 800 mg tablet 800 mg PO TID Qty: 270 0RF levothyroxine 200 mcg tablet 200 mcg PO DAILY Qty: 90 0RF potassium chloride [Klor-Con 10] 10 mEq tablet extended release 10 meq PO QDAY PRN (Reason: with fluid pill ) Qty: 90 0RF tamsulosin 0.4 mg capsule 0.4 mg PO QDAY Qty: 90 0RF oxycodone-acetaminophen 5-325 mg Tablet 1 tab PO BID PRN (Reason: Pain) Cipro 500 mg Tablet 500 mg PO BID 7 Days Qty: 14 0RF Discharge Orders: Discharge Order (Routine); Ordered 06/02/22 Ordered By: Leisa Romero Referrals: Je Pugh, R DEVELOPER-C [Primary Care Provider] - Jose Smith DO [Physician] - 2 weeks (diverticulitis, referral fro outpt colonoscopy ) Discharge Diet: Advance as tolerated Discharge Activity: Resume usual activity Patient Instructions: Opioid Safety Discharge Attestations Time Spent in Discharge Care*: greater than 30 min Quality Metrics Clinical Quality Measures [ No reported AMI, CVA or VTE this stay] Coding Level of Care Code Acute Chg FW MD note Diagnoses Chest pain R07.9 CAD (coronary artery disease) I25.10 Dyslipidemia E78.5 Essential (primary) hypertension I10 Controlled diabetes mellitus with hyperglycemia, without long-term current use of insulin E11.65 Diabetes mellitus type: type 2
--- NOTE | 2022-06-02 12:35 | NMCV_ITS ---
NM daniela perf SPECT r/s* [id number] Mo Van Age: 77 Gender: M : 1945 Exam Date: 06/02/2022 12:35 Ordering Phys: Rachell Benitez MD ([email or web address]) Technologist: MAURICE Mulligan Exam Location: [facility] Indications: CHEST PAIN STRESS TEST Please see separate stress test report in [facility] for full findings IMAGE PROTOCOL Rest/Stress 1 Lexiscan Day Radiopharmaceutical Dose (mCi) Administration Site Administered by Rest: Tc-99m 10.9 IV MAURICE Estrada Sestamibi Stress:Tc-99m 32.6 IV MAURICE Estrada Sestamibi Rest: 02-Jun-2022 60 Discovery 630 Stress: 02-Jun-2022 30 Discovery 630 0.4mg Lexiscan. Images obtained in supine and prone position. SPECT RESULTS Technical Quality: Excellent Raw Data Analysis: Normal Image Corrections: No attenuation or motion correction applied Summed Stress Score: 2 Summed Rest Score: 0 Summed Difference Score: 2 PERFUSION FINDINGS SPECT images demonstrate homogeneous tracer distribution throughout the myocardium. FUNCTIONAL RESULTS (calculated via Gated SPECT) Stress Image LV EF (%): 57 Stress EDV (mL):129 TID: 0.87 Stress ESV (mL):55 FUNCTIONAL FINDINGS: The left ventricle is normal in size. Transient Ischemia Dilatation of 0.87. There is normal left ventricular systolic function. The left ventricular ejection fraction is normal with a value of 57%. There is normal left ventricular wall thickening with no regional wall motion abnormality. IMPRESSIONS 1. Myocardial perfusion imaging is normal. 2. Overall left ventricular systolic function is normal without regional wall motion abnormalities, LVEF=57%. 3. EKG portion of the study will be reported separately. 4. No change when compared to study dated 03/10/2019. Rachell Benitez MD (Electronically Signed) Final Date: 02 June 2022 09:58 S
--- NOTE | 2022-06-02 15:29 | PC.NURSE ---
Discharge Note Patient discharged to home via wheelchair accompanied by security. Discharge instructions reviewed with patient and/or home furnishings sales representative. Mobile pharmacy medications and/or prescriptions provided. Belongings/home medications returned.
== END 2022-06-02 15:29 | disposition home or self-care (01) | DRG 303 ==
LOC: ER 17:26 → MEDSURG 18:16
PROVIDERS: Admitting Provider Internal Medicine; Emergency Provider Emergency Medicine; PCP Nurse Practitioner; Visit Provider Student in an Organized Health Care Education/Training Program
DX: I25.110 Atherosclerotic heart disease of native coronary artery with unstable angina pectoris (principal); K57.92 Diverticulitis of intestine, part unspecified, without perforation or abscess without bleeding; N13.8 Other obstructive and reflux uropathy; Z95.5 Presence of coronary angioplasty implant and graft; K21.9 Gastro-esophageal reflux disease without esophagitis; E03.9 Hypothyroidism, unspecified; N40.1 Benign prostatic hyperplasia with lower urinary tract symptoms; R39.11 Hesitancy of micturition; N41.1 Chronic prostatitis; Z79.2 Long term (current) use of antibiotics; E11.43 Type 2 diabetes mellitus with diabetic autonomic (poly)neuropathy; E11.65 Type 2 diabetes mellitus with hyperglycemia; M51.36 Other intervertebral disc degeneration, lumbar region; Z99.81 Dependence on supplemental oxygen; E78.5 Hyperlipidemia, unspecified; I10 Essential (primary) hypertension; G47.33 Obstructive sleep apnea (adult) (pediatric); Z99.89 Dependence on other enabling machines and devices; Z87.891 Personal history of nicotine dependence; Z79.891 Long term (current) use of opiate analgesic; Z79.84 Long term (current) use of oral hypoglycemic drugs; I25.2 Old myocardial infarction; G89.29 Other chronic pain
CPT/HCPCS: 36415; 71045; 74176; 78452; 80048; 80053; 83880; 84484; 85025; 93005; 93017; 93306; 94760; 96365; 96372; 99285; A9500; G0378; J0295; J0744; J1650; J2785; S0030

== ENCOUNTER → 2022-06-12 16:20 | Outpatient (BNVA) | payer MEDICARE, OTHER, SELFPAY | PROVIDERS: PCP Nurse Practitioner; Visit Provider Nurse Practitioner | DX: E11.65 Type 2 diabetes mellitus with hyperglycemia (principal) | CPT/HCPCS: 80061; 83036 ==

== ENCOUNTER → 2022-06-17 07:55 | Outpatient (BNVA) | payer MEDICARE, OTHER, SELFPAY | PROVIDERS: PCP Nurse Practitioner; Visit Provider Surgery | DX: Z09 Encounter for follow-up examination after completed treatment for conditions other than malignant neoplasm (principal); K21.9 Gastro-esophageal reflux disease without esophagitis; K57.32 Diverticulitis of large intestine without perforation or abscess without bleeding; K42.9 Umbilical hernia without obstruction or gangrene | CPT/HCPCS: 99204 ==

== ENCOUNTER → 2022-07-29 10:04 | Outpatient (BNVA) | payer MEDICARE, OTHER, SELFPAY | PROVIDERS: PCP Nurse Practitioner; Visit Provider Podiatrist Foot & Ankle Surgery | DX: E11.8 Type 2 diabetes mellitus with unspecified complications (principal); E11.42 Type 2 diabetes mellitus with diabetic polyneuropathy; L84 Corns and callosities; L60.3 Nail dystrophy; M20.41 Other hammer toe(s) (acquired), right foot; M21.41 Flat foot [pes planus] (acquired), right foot; M21.42 Flat foot [pes planus] (acquired), left foot; M21.622 Bunionette of left foot; M20.42 Other hammer toe(s) (acquired), left foot | CPT/HCPCS: 11055; 11721; 73630; 99214 ==

== ENCOUNTER 2022-09-10 08:39 | Day surgery (SDC) | payer MEDICARE, OTHER, SELFPAY ==
[2022-09-08 12:42] VITALS: BMI 36.6
[2022-09-10 09:25] VITALS: BP 129/70; PULSE 60; RESP 18; TEMP 36.1; O2SAT 95
[2022-09-10 09:29] LABS: Glucose Point of Care 125 mg/dL (70-110)
[2022-09-10] MEDS: sodium chloride 0.9% 1,000 ML 30 ML IV (09:37)
--- NOTE | 2022-09-10 11:10 | P.HP_ITS ---
Providers/Chief Complaint Primary Care Provider: RUSSELL Ghotra Chief Complaint: K21.9 History of Present Illness Mo Van is a 77 year old male here for EGD and colonoscopy Medications/Allergies Home Medications Medication Instructions Recorded Confirmed Last Taken Type diabetic shoes #1 ea 10/18/20 09/03/22 Unknown Rx nitroglycerin 400 mcg/spray 1 spray translingual Q5M PRN chest 11/14/20 09/10/22 Unknown Rx translingual pain #4.9 grams Diabetic shoes with inserts #1 ea 12/02/21 09/03/22 Unknown Rx chlorhexidine gluconate 0.12 % 15 ml buccal BID #473 mL 12/26/21 09/10/22 Unknown Rx mouthwash (Peridex) CPAP machine and supplies #1 ea 02/10/22 09/03/22 Unknown Rx blood sugar diagnostic (OneTouch #50 ea 02/10/22 09/03/22 Unknown Rx Ultra Test strips) blood-glucose meter (OneTouch #1 ea 02/10/22 09/03/22 Unknown Rx Ultra2 Meter kit) Knee brace L1851 #2 ea 03/21/22 09/03/22 Unknown Rx Diabetic Shoes with 3 Insoles #1 ea 04/23/22 09/03/22 Unknown Rx oxycodone-acetaminophen 5 mg-325 1 tab PO BID PRN Pain 05/31/22 09/10/22 Unknown History mg tablet finasteride 5 mg tablet 5 mg PO QDAY #90 tabs 06/15/22 09/10/22 09/09/22 Rx furosemide 20 mg tablet 20 mg PO QAM PRN edema #90 tabs 06/15/22 09/10/22 09/09/22 Rx levothyroxine 200 mcg tablet 200 mcg PO DAILY #90 tabs 06/15/22 09/10/22 09/09/22 Rx potassium chloride 10 mEq 10 meq PO QDAY PRN with fluid pill 06/15/22 09/10/22 09/09/22 Rx tablet,extended release (Klor-Con) #90 tabs amlodipine 5 mg tablet 5 mg PO DAILY 30 days #90 tabs 07/05/22 09/10/22 09/09/22 Rx pantoprazole 40 mg tablet,delayed 40 mg PO DAILY 30 days #90 tabs 07/05/22 09/10/22 09/09/22 Rx release gabapentin 800 mg tablet 800 mg PO TID #270 tabs 08/30/22 09/10/22 09/09/22 Rx tamsulosin 0.4 mg capsule 0.4 mg PO QDAY #90 caps 08/30/22 09/10/22 09/09/22 Rx empagliflozin 25 mg tablet 25 mg PO QAM #30 tabs 09/03/22 09/10/22 09/09/22 Rx (Jardiance) metformin 500 mg tablet,extended 1,000 mg PO BID #120 tabs 09/03/22 09/10/22 09/09/22 Rx release 24 hr clopidogrel 75 mg tablet (Plavix) 75 mg PO DAILY #90 tabs 09/09/22 09/10/22 Unknown Rx Allergies Allergy/AdvReac Type Severity Reaction Status Date / Time No Known Allergies Allergy Verified 09/10/22 09:30 PFSH Acute PFSH: Medical History (Updated 09/07/22 @ 18:11 by RUSSELL Ghotra) Adult onset hypothyroidism Allergic rhinitis due to allergen Arteriosclerosis of coronary artery Bilateral hearing loss due to cerumen impaction BPH loc w urin obs/LUTS Good response and durably so to dual medical therapy of FINASTERIDE/TAMSULOSIN (single dose) CAD (coronary artery disease) Chest pain at rest Chronic prostatitis On self treatment with CIPROFLOXACIN. Sporadic treatment required. DDD (degenerative disc disease), lumbar Dependence on nocturnal oxygen therapy Diabetes mellitus with hyperglycemia, without long-term current use of insulin Diverticula, colon Dizziness and giddiness DM autonomic neuropathy Dyslipidemia Essential (primary) hypertension GERD (gastroesophageal reflux disease) GREG on CPAP Osteoarthritis, knee Pain in thoracic spine at multiple sites Umbilical hernia Urinary hesitancy Vitamin D insufficiency Surgical History H/O rectal polypectomy History of angiography With stent placement History of appendectomy History of carotid artery disease surgery right bilateral 2007 History of cataract surgery right and left History of cholecystectomy History of colonoscopy 2017 repeat in 3 years History of hernia repair Left History of surgery on arm right skin graft age 17 History of surgical amputation of finger of right hand age 17 Family History Mother Cancer Father CAD (coronary artery disease) Stroke Denies family history of Bleeding disorder Social History Smoking and tobacco status: former smoker Second hand smoke exposure: No Smoking risk assessment/counseling performed?: No Alcohol intake: never Desire information about alcohol rehabilitation?: No Counseling given: No Desire information about substance/drug rehabilitation?: No Counseling given: No Adopted: No Caregiver/support person: No Lives independently: Yes Household members: spouse Housing: House Marital status: service: No Current occupational status: employed History of recent travel: No Current gender identity: Male Vitals/I&O/Wt Last Vital Signs Temp 97.0 F L 09/10/22 09:25 Pulse 60 09/10/22 09:25 Resp 18 09/10/22 09:25 BP 129/70 09/10/22 09:25 Pulse Ox 95 09/10/22 09:25 O2 Del Method 09/10/22 09:25 Weight last 48 hrs Weight 270 lb A&P Assessment and plan (1) Acute diverticulitis: (2) GERD (gastroesophageal reflux disease): Qualifiers: Esophagitis presence: without esophagitis Qualified Code(s): K21.9 - G hernán-esophageal reflux disease without esophagitis Plan EGD and colonoscopy Attestations Medical Necessity Statement*: Home Coding Level of Care Code Acute Fire Engineer for [facility] Fwd Diagnoses Acute diverticulitis K57.92 GERD (gastroesophageal reflux disease) K21.9 Esophagitis presence: without esophagitis
--- NOTE | 2022-09-10 11:17 | ANES.PREANE2 ---
Pre-Anesthetic Assessment Height/Weight: Height 1.83 m Weight 122.47 kg Temp Pulse Resp BP Pulse Ox O2 Del Method 97.0 F L 60 18 129/70 95 09/10/22 09:25 09/10/22 09:25 09/10/22 09:25 09/10/22 09:25 09/10/22 09:25 09/10/22 09:25 Operation Date: 09/10/22 10:00 Proposed Procedures p [id number] EGD [id number] Colon K21.9,K57.32(Not Applicable) - DO dameon Demarco Colonoscopy(Not Applicable) - Jose Smith DO Familial anesthetic complications: None Was Beta Genaro taken within 24 hours: N/A Was Clonidine taken within 24 hours: N/A Last intake: Intake Last Liquid Date 09/09/22 Last Liquid Time 20:00 Last Solid Date 09/08/22 Last Solid Time 06:30 Social No alcohol and No tobacco Exam alert, oriented x 3, clear to auscultation bilaterally and regular rate & rhythm Airway Submandibular: within normal limits Cervical ROM: within normal limits Mallampati: Class III Comments: Comments: Several missing History/ROS No significant history except as noted and No significant complaints Pulmonary Exertional Dyspnea and Sleep Apnea (CPAP at night) CV/HEM Stable Angina (Patient states that he was told it was related to muscle spasms and not his heart), Coronary Artery Disease, Hypertension, Myocardial Infarction (Stents x2) and Murmur EF 65% Prostatitis Hepatic None reported GI Gastroesophageal Reflux Disease (None this AM) Metabolic Diabetes Mellitus, Hyperlipidemia, Morbid Obesity and Thyroid Disease Musc/skel Lower Back Pain and Osteoarthritis/DJD Neuropsych Cerebrovascular Accident (2018, left side weaker than right. Had bilateral CEA) and Neuropathy Anesthetic Plan ASA status: 4 Anesthesia: General and MAC Risk of > 500 ml blood loss (7ml/kg in children): No Medications/Allergies Home Medications Medication Instructions Recorded Confirmed Last Taken Type diabetic shoes #1 ea 10/18/20 09/03/22 Unknown Rx nitroglycerin 400 mcg/spray 1 spray translingual Q5M PRN chest 11/14/20 09/10/22 Unknown Rx translingual pain #4.9 grams Diabetic shoes with inserts #1 ea 12/02/21 09/03/22 Unknown Rx chlorhexidine gluconate 0.12 % 15 ml buccal BID #473 mL 12/26/21 09/10/22 Unknown Rx mouthwash (Peridex) CPAP machine and supplies #1 ea 02/10/22 09/03/22 Unknown Rx blood sugar diagnostic (OneTouch #50 ea 02/10/22 09/03/22 Unknown Rx Ultra Test strips) blood-glucose meter (OneTouch #1 ea 02/10/22 09/03/22 Unknown Rx Ultra2 Meter kit) Knee brace L1851 #2 ea 03/21/22 09/03/22 Unknown Rx Diabetic Shoes with 3 Insoles #1 ea 04/23/22 09/03/22 Unknown Rx oxycodone-acetaminophen 5 mg-325 1 tab PO BID PRN Pain 05/31/22 09/10/22 Unknown History mg tablet finasteride 5 mg tablet 5 mg PO QDAY #90 tabs 06/15/22 09/10/22 09/09/22 Rx furosemide 20 mg tablet 20 mg PO QAM PRN edema #90 tabs 06/15/22 09/10/22 09/09/22 Rx levothyroxine 200 mcg tablet 200 mcg PO DAILY #90 tabs 06/15/22 09/10/22 09/09/22 Rx potassium chloride 10 mEq 10 meq PO QDAY PRN with fluid pill 06/15/22 09/10/22 09/09/22 Rx tablet,extended release (Klor-Con) #90 tabs amlodipine 5 mg tablet 5 mg PO DAILY 30 days #90 tabs 07/05/22 09/10/22 09/09/22 Rx pantoprazole 40 mg tablet,delayed 40 mg PO DAILY 30 days #90 tabs 07/05/22 09/10/22 09/09/22 Rx release gabapentin 800 mg tablet 800 mg PO TID #270 tabs 08/30/22 09/10/22 09/09/22 Rx tamsulosin 0.4 mg capsule 0.4 mg PO QDAY #90 caps 08/30/22 09/10/22 09/09/22 Rx empagliflozin 25 mg tablet 25 mg PO QAM #30 tabs 09/03/22 09/10/22 09/09/22 Rx (Jardiance) metformin 500 mg tablet,extended 1,000 mg PO BID #120 tabs 09/03/22 09/10/22 09/09/22 Rx release 24 hr clopidogrel 75 mg tablet (Plavix) 75 mg PO DAILY #90 tabs 09/09/22 09/10/22 Unknown Rx Allergies Allergy/AdvReac Type Severity Reaction Status Date / Time No Known Allergies Allergy Verified 09/10/22 09:30 Current Medications Generic Name Dose Route Start Last Admin Trade Name Maikelq PRN Reason Stop Dose Admin Sodium Chloride 1,000 mls @ 30 mls/hr 09/10/22 09:00 09/10/22 09:37 Sodium Chloride 0.9% IV 09/11/22 08:59 30 mls/hr .Q24H PARISH Administration PFSH Anesthesia Medical History (Updated 09/07/22 @ 18:11 by RUSSELL Ghotra) Adult onset hypothyroidism Allergic rhinitis due to allergen Arteriosclerosis of coronary artery Bilateral hearing loss due to cerumen impaction BPH loc w urin obs/LUTS Good response and durably so to dual medical therapy of FINASTERIDE/TAMSULOSIN (single dose) CAD (coronary artery disease) Chest pain at rest Chronic prostatitis On self treatment with CIPROFLOXACIN. Sporadic treatment required. DDD (degenerative disc disease), lumbar Dependence on nocturnal oxygen therapy Diabetes mellitus with hyperglycemia, without long-term current use of insulin Diverticula, colon Dizziness and giddiness DM autonomic neuropathy Dyslipidemia Essential (primary) hypertension GERD (gastroesophageal reflux disease) GREG on CPAP Osteoarthritis, knee Pain in thoracic spine at multiple sites Umbilical hernia Urinary hesitancy Vitamin D insufficiency Surgical History H/O rectal polypectomy History of angiography With stent placement History of appendectomy History of carotid artery disease surgery right bilateral 2007 History of cataract surgery right and left History of cholecystectomy History of colonoscopy 2017 repeat in 3 years History of hernia repair Left History of surgery on arm right skin graft age 17 History of surgical amputation of finger of right hand age 17 Family History Mother Cancer Father CAD (coronary artery disease) Stroke Denies family history of Bleeding disorder Social History Smoking and tobacco status: former smoker Second hand smoke exposure: No Smoking risk assessment/counseling performed?: No Alcohol intake: never Desire information about alcohol rehabilitation?: No Counseling given: No Desire information about substance/drug rehabilitation?: No Counseling given: No Adopted: No Caregiver/support person: No Lives independently: Yes Household members: spouse Housing: House Marital status: service: No Current occupational status: employed History of recent travel: No Current gender identity: Male Data Anesthesia Cardiac Studies: Echocardiogram 05/30/22 Sestamibi Stress Test (Cardiology) 06/02/22
[2022-09-10 12:08] VITALS: BP 109/61; PULSE 60; RESP 12; TEMP 36.2; O2SAT 93
[2022-09-10 12:23] VITALS: BP 127/77; PULSE 62; RESP 16; O2SAT 93
--- NOTE | 2022-09-10 14:57 | ANE.PACU2 ---
Inpatient post-anesthesia follow up: Airway intact: Yes Vital signs: Temperature 97.2 F Pulse Rate 62 Respiratory Rate 16 Blood Pressure 127/77 Pulse Oximetry 93 Oxygen Delivery Me thod Room Air Oxygen Flow Rate Fraction of Inspir ed Oxygen Hydration adequate: Yes Nausea and vomiting: No Pain level: 1 Mental status: Baseline
== END 2022-09-10 13:01 | disposition home or self-care (01) ==
PROVIDERS: PCP Nurse Practitioner; Visit Provider Surgery
PROC: 0DJ08ZZ Inspection of Upper Intestinal Tract, Via Natural or Artificial Opening Endoscopic (ICD-10-PCS; CPT 43235; principal; 2022-09-10 10:00)
PROC: 0DJD8ZZ Inspection of Lower Intestinal Tract, Via Natural or Artificial Opening Endoscopic (ICD-10-PCS; CPT 45378; 2022-09-10 10:00)
DX: K21.9 Gastro-esophageal reflux disease without esophagitis (principal); D12.2 Benign neoplasm of ascending colon; K57.30 Diverticulosis of large intestine without perforation or abscess without bleeding; K29.50 Unspecified chronic gastritis without bleeding; B96.81 Helicobacter pylori [H. pylori] as the cause of diseases classified elsewhere; I25.10 Atherosclerotic heart disease of native coronary artery without angina pectoris; I10 Essential (primary) hypertension; I25.2 Old myocardial infarction; E78.5 Hyperlipidemia, unspecified; E66.01 Morbid (severe) obesity due to excess calories; Z68.36 Body mass index [BMI] 36.0-36.9, adult; M19.90 Unspecified osteoarthritis, unspecified site; E03.9 Hypothyroidism, unspecified; N40.1 Benign prostatic hyperplasia with lower urinary tract symptoms; N13.8 Other obstructive and reflux uropathy; E11.42 Type 2 diabetes mellitus with diabetic polyneuropathy; G47.33 Obstructive sleep apnea (adult) (pediatric); Z87.891 Personal history of nicotine dependence
CPT/HCPCS: 36416; 43239; 45385; 82962; 88305; J2704; J7030

== ENCOUNTER → 2022-09-15 09:14 | Outpatient (BNVA) | payer MEDICARE, OTHER, SELFPAY | PROVIDERS: PCP Nurse Practitioner; Visit Provider Nurse Practitioner | DX: E11.42 Type 2 diabetes mellitus with diabetic polyneuropathy (principal); I10 Essential (primary) hypertension; E03.8 Other specified hypothyroidism; E11.43 Type 2 diabetes mellitus with diabetic autonomic (poly)neuropathy | CPT/HCPCS: 80053; 80061; 83036 ==

== ENCOUNTER → 2022-09-18 11:47 | Outpatient (BNVA) | payer MEDICARE, OTHER, SELFPAY | PROVIDERS: PCP Nurse Practitioner; Visit Provider Nurse Practitioner | DX: E11.65 Type 2 diabetes mellitus with hyperglycemia (principal) | CPT/HCPCS: 80048 ==

== ENCOUNTER → 2022-09-23 15:23 | Outpatient (BNVA) | payer MEDICARE, OTHER, SELFPAY | PROVIDERS: PCP Nurse Practitioner; Visit Provider Surgery | DX: Z09 Encounter for follow-up examination after completed treatment for conditions other than malignant neoplasm (principal); K29.70 Gastritis, unspecified, without bleeding; B96.81 Helicobacter pylori [H. pylori] as the cause of diseases classified elsewhere; D12.6 Benign neoplasm of colon, unspecified | CPT/HCPCS: 99212 ==

== ENCOUNTER → 2022-11-06 12:56 | Outpatient (BNVA) | payer MEDICARE, OTHER, SELFPAY | PROVIDERS: PCP Nurse Practitioner; Visit Provider Podiatrist Foot & Ankle Surgery | DX: E11.8 Type 2 diabetes mellitus with unspecified complications (principal); E11.42 Type 2 diabetes mellitus with diabetic polyneuropathy; L84 Corns and callosities; L60.3 Nail dystrophy; M20.40 Other hammer toe(s) (acquired), unspecified foot; M21.41 Flat foot [pes planus] (acquired), right foot; M21.42 Flat foot [pes planus] (acquired), left foot; M21.622 Bunionette of left foot; M20.42 Other hammer toe(s) (acquired), left foot; M20.41 Other hammer toe(s) (acquired), right foot; Z79.84 Long term (current) use of oral hypoglycemic drugs | CPT/HCPCS: 11055; 11721 ==

== ENCOUNTER → 2022-11-19 13:38 | Outpatient (BNVA) | payer MEDICARE, OTHER, SELFPAY | PROVIDERS: PCP Nurse Practitioner; Visit Provider Internal Medicine Cardiovascular Disease | DX: R07.89 Other chest pain (principal); R06.02 Shortness of breath; I25.10 Atherosclerotic heart disease of native coronary artery without angina pectoris; I10 Essential (primary) hypertension; R42 Dizziness and giddiness; I73.9 Peripheral vascular disease, unspecified; K21.9 Gastro-esophageal reflux disease without esophagitis; E03.8 Other specified hypothyroidism; G47.33 Obstructive sleep apnea (adult) (pediatric); Z99.89 Dependence on other enabling machines and devices; Z87.891 Personal history of nicotine dependence | CPT/HCPCS: 99214; Q3014 ==

== ENCOUNTER → 2022-11-20 12:01 | Outpatient (BNVA) | payer MEDICARE, OTHER, SELFPAY | PROVIDERS: PCP Nurse Practitioner; Visit Provider Internal Medicine Cardiovascular Disease | DX: R06.02 Shortness of breath (principal); I25.10 Atherosclerotic heart disease of native coronary artery without angina pectoris; R07.9 Chest pain, unspecified; R42 Dizziness and giddiness | CPT/HCPCS: Q3014; 80048; 85025; 85610 ==

== ENCOUNTER 2022-11-21 13:29 | Outpatient (CLI) | payer MEDICARE, OTHER, SELFPAY ==
--- NOTE | 2022-11-21 14:15 | USCV_ITS ---
Mo Van Age: 77 Gender: M : 1945 Exam Date: 11/21/2022 14:43 Ordering Phys: Rachell Benitez MD ([email or web address]) Technologist: [place] [facility] [place] pad RIGHT LEFT Brachial 105.00 mmHg Brachial 118.00 mmHg Pressure (mmHg) Waveform Pressure (mmHg) Waveform 68.00 BLEACH TESTER 118.00 101.00 DPA 116.00 0.86 Ankle/Brachial Index 1.02 0.30 Post-Exercise Ankle Brachial Index 0.59 101.00 Post-Exercise Toe Pressure 113.00 0.89 Post-Exercise Toe/Brachial Index 0.96 FINDINGS Resting MARCO A of 0.86 on the right and 1.02 on the left Post exercise MARCO A of 0.3 on the right and 0.59 on the left CONCLUSIONS 1. Markedly abnormal post exercise MARCO A on the right side, suggesting severe peripheral artery disease 2. Moderately diminished post exercise MARCO A on the left side suggesting moderate peripheral artery disease 3. Mildly diminished resting MARCO A on the right side. Normal resting MARCO A and TBI on the left side Dr Diogo Chapa MD FAC (Electronically Signed) Final Date: 21 November 2022 17:16 S
== END 2022-11-21 13:30 | disposition home or self-care (01) ==
LOC: RAD 13:30
PROVIDERS: PCP Nurse Practitioner; Visit Provider Internal Medicine Cardiovascular Disease
DX: I73.9 Peripheral vascular disease, unspecified (principal)
CPT/HCPCS: 93922

== ENCOUNTER 2022-11-24 08:43 | Outpatient (CLI) | payer MEDICARE, OTHER, SELFPAY ==
[2022-11-21 10:54] VITALS: BMI 34.2
[2022-11-24] VITALS (29 sets, daily range): BP systolic 114–168; BP diastolic 53–89; PULSE 36–55; RESP 10–20; TEMP 36.8; O2SAT 91–99
--- NOTE | 2022-11-24 09:00 | XACV_ITS ---
Exam Room: 2 Ht: 183 cm Wt: 114 kg BSA: 2.45 m2 Gender: Male : 1945 Any Known Allergies: No known allergies Exam Priority: Routine Procedure(s): Procedure Description: Diagnostic procedure Procedure Description: Coronary Angiography Diagnostic Cath Status: Elective Diagnostic Findings * Left Main has no significant disease. * Circumflex has mild luminal irregularities. * Right Coronary Artery is small sized vessel. * Mid Left Anterior Descending: minimal 30-40% stenosis, DINO: 3 flow. * Coronary angiography shows left dominance. Conclusions 1. There is minimal coronary artery disease with one vessel disease. Recommendations * Aggressive risk factor modification. * Outpatient cardiology follow up in 4 weeks. Interventional RX Recommendation: medical therapy and/or counseling Diagnostic RX Recommendation: medical therapy and/or counseling Pressures Phase:Rest AO : 111 / 57 ( 80 ) @ 10:42:00 AM Clinical Evaluation EBL: 5mL-10mL Procedural Details Procedure Consent Obtained. Current Diagnosis : Chest Pain. Pre-Procedure Time Out. Identified patient by full name and date of as verbalized by the patient/guarantor. Does the consent match the physician's order: Yes. Accurate & Complete Informed Consent: Yes. Inpatient/Outpatient History & Physical on Chart: Yes. If H&P is completed, is and addenduem needed: No; If yes, is the addendum complete: N/A. Visualize and Verify Site with Patient/Guarantor: N/A. Relevant Radiology Images available: Yes. Pre-op teaching completed and patient verbalized understanding. The risks, benefits, and alternatives of sedation and/or procedure were discussed by physician. The patient agrees to continue. Procedure started. [facility] Clinical Fraility Score: 3: Managing Well. Health Director Indications: Worsening Angina. Chest Pain Symptom Assessment: Typical Angina Symptoms. Correct patient, site and procedure confirmed by cath team. Current diagnosis: Chest Pain. PERRLA. Strong, equal hand sales representative education courses bilaterally. Lungs clear x 5 lobes. IV Site on Arrival: 20 gauge in the left anticubital. IV Fluids: 0.9% NaCl at KVO. 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 Pre Procedural Pulses: bilateral dorsalis pedis was 3+. Pre Procedural Pulses: bilateral posterior tibial was 2+. Pre Procedural Pulses: right radial was 2+. Pre Procedural Pulses: left radial was 3+. Oxygen started at 2liters/min via nasal canula. bilateral groins was prepped with chloroprep then draped in the usual sterile fashion. Physician notified. Baseline sample Acquired. HR: 58 BPM. Physician arrived. Physician scrubbed in. Immediate Pre-Procedure Time Out. Correct Patient: Yes; Correct Procedure: Yes; Correct Site: Yes; Correct Patient Position: Yes; Correct Supplies: Yes; Dried Flammable Prep: Yes; Blood Products Available: N/A;. Lidocaine 1% infiltrated to the right groin. Arterial access obtained with micropuncture set. Wire unable to advance. Wire and needle out. Arterial access obtained with micropuncture set. Sheath out OTW. Dilator inserted OTW. glidewire inserted through the dilator. 6Fr Flexor sheath inserted OTW. Sheath out OTW. Terumo 0.035 glidesheath inserted OTW. A 5 yemeni JL4 catheter in over wire. Multiple views taken of left coronary artery. Catheter removed over the exchange wire. A 5 yemeni JR4 catheter in over wire. Multiple views taken of right coronary artery. Catheter removed over the exchange wire. Physician review of cine films. Sheath(s) removed and manual pressure held until hemostasis was achieved. Sterile 4x4 and Op-site applied to the puncture site. No oozing or hematoma noted. Post sheath removal instructions were given and the patient verbalized understanding. Post Procedure: Pulses reassessed and unchanged. PERRLA. Strong, equal hand sales representative education courses bilaterally. No VTE prophylaxis required. Medication's Wasted: Heparin = 1000 units. Medication's Wasted: Other = Fentanyl 25 mcg. Total IV fluids: 50 mL. Complications: None. Estimated blood loss: 5mL-10mL. Responsiveness - Normal response to verbal stimuli; alert and oriented, PERRLA. Airway - Unaffected, no intervention required; spontaneous ventilation. Circulation: W/N/L, pulses unchanged. Nausea/Vomiting: No. Procedure completed. Patient transferred by stretcher to CPRU. Vital chart was stopped. Access Site Site: Right Femoral artery Sheath Size: 6 Fr Hemostasis Success: Unsuccessful Procedure Medications Start: 10:21 AM Stop: 10:21 AM Medication: Versed Amount: 1 mg Route: I.V. Start: 10:22 AM Stop: 10:22 AM Medication: Fentanyl Amount: 50 mcg Route: I.V. Start: 10:35 AM Stop: 10:35 AM Medication: Versed 1 mg and Fentanyl 25 mcg Amount: 1 Route: I.V. I, the attending physician, have reviewed and verified all procedure medications. Yes, all medications given per verbal order History/Risk Factors Hypertension: Yes Dyslipidemia: Yes Peripheral Arterial Disease (PAD): No Myocardial Infarction (MN): No Obesity: No Renal Disease: No Prior Interventions PCI: Yes CABG: No Valve Surgery: No Report Signatures Finalized by Guicho Goff MD on 12/06/2022 01:27 PM
[2022-11-24] MEDS: aspirin 325 mg Tablet PO (09:30)
[2022-11-24] MEDS: diphenhydrAMINE 50 mg Capsule PO (09:30)
--- NOTE | 2022-11-24 10:19 | W.PM.OPSUD ---
Surgery/Procedure H&P Update DATE OF PROCEDURE: November 24, 2022 DATE H&P PERFORMED: 11/19/22 H&P UPDATE INFORMATION: I have reviewed H&P completed within last 30 days, I have examined patient prior to procedure and No changes to prior documentation PREOP DIAGNOSIS: Worsening angina PRIMARY INDICATION FOR PROCEDURE: Worsening angina PLANNED PROCEDURE: Operation Date: 11/24/22 10:00 Proposed Procedures p [facility] w/wo [id number],R06.02,R07.9,I25.10,R42(Not Applicable) - Guicho Goff M.D Possible percutanoeus coronary intervention PATIENT REASSESSED PRIOR TO SEDATION, WITH NO CHANGE NOTED: Yes PHYSICAL EXAM: alert, oriented x 3, clear to auscultation bilaterally and regular rate & rhythm AIRWAY EVAL/ANESTHESIA PLAN: normal airway, ASA III, Local Anesthesia, Risks, benefits & alternatives of sedation and/or procedure discussed and Patient agrees to continue as planned ADDITIONAL INFORMATION: Moderate sedation
[2022-11-24 11:16] LABS: Glucose Point of Care 102 mg/dL (70-110)
--- NOTE | 2022-11-24 13:09 | PC.NURSE ---
Transfer orders received. Report given to ISABEL Anderson. Dsg to patients right groin clean, dry, et intact. No drainage or hematoma noted. Vitals stable. No c/o of pain or discomfort. Patient transferred from CPRU to CSU via stretcher.
[2022-11-24 16:30] LABS: Glucose Point of Care 219 mg/dL (70-110)
== END 2022-11-24 18:49 | disposition home or self-care (01) ==
LOC: CCL 08:47 → CSU 17:18
PROVIDERS: PCP Nurse Practitioner; Visit Provider Internal Medicine
DX: I25.10 Atherosclerotic heart disease of native coronary artery without angina pectoris (principal); I10 Essential (primary) hypertension; E11.9 Type 2 diabetes mellitus without complications; E03.9 Hypothyroidism, unspecified; Z95.5 Presence of coronary angioplasty implant and graft; E78.5 Hyperlipidemia, unspecified; N40.1 Benign prostatic hyperplasia with lower urinary tract symptoms; N13.8 Other obstructive and reflux uropathy; Z79.82 Long term (current) use of aspirin; Z79.84 Long term (current) use of oral hypoglycemic drugs
CPT/HCPCS: 36415; 36416; 82962; 93454; 96361; 96365; 99152; 99153; C1769; C1887; C1894; J1644; J2250; J3010; J3490; J7030; Q0163; Q9967

== ENCOUNTER 2022-12-09 08:20 | Outpatient (CLI) | payer MEDICARE, OTHER, SELFPAY ==
[2022-12-09 08:59] LABS: Add Urine Microscopic? NO; Charge for UA Resulting for Rev
[2022-12-09 09:31] LABS: Estmated Average Glucose 140; Hemoglobin A1C 6.5 % (4.0-6.0)
[2022-12-09 09:32] LABS: Bilirubin Urine Neg (Negative); Blood Urine Neg (Negative); Glucose Urine UA 4+ (Normal); Ketones Urine Negative (Negative); Leukocyte Esterase Urine Negative (Negative); Nitrate Urine Negative (Negative); Protein Urine Neg (Negative); Specific Gravity, Urine 1.015 (1.005-1.030); Urine Appearance Clear (CLEAR); Urine Color Yellow (Yellow); Urobilinogen Urine Norm (Negative); pH Urine 6 (5-7)
[2022-12-09 09:51] LABS: 25 Hydroxy Vitamin D 29 ng/mL (30-100); Alanine Aminotransferase 21 U/L (0-41); Albumin Level 4.3 g/dL (3.5-5.2); Alkaline Phosphatase 81 U/L (40-130); Aspartate Amino Transferase 16 U/L (0-40); Blood Urea Nitrogen 20 mg/dL (8-23); Calcium 9.8 mg/dL (8.5-10.5); Carbon Dioxide 25 mmol/L (22-29); Chloride 101 mmol/L (98-107); Chol HDL Ratio 6.42 mg/dL (1.0-5.00); Cholesterol 244 mg/dL (0-200); Globulin 3.4 g/dL (1.3-4.6); Glucose 124 mg/dL (65-115); HDL Cholesterol 38 mg/dL (60-100); LDL Cholesterol Calculated 175 mg/dL (50-129); Osmolality Calculated 290 mOsm/kg (285-295); Sodium 138 mmol/L (136-145); Thyroid Stimulating Hormone 3.84 uIU/mL (0.27-4.20); Total Bilirubin 0.7 mg/dL (0.15-1.2); Total Protein 7.7 g/dL (6.6-8.7); Triglycerides 153 mg/dL (0-150); VLDL Cholestrol Calculation 31 mg/dL (0-30); Vitamin B12 415 pg/mL (232-1245)
[2022-12-09 09:54] LABS: Anion Gap 16.4 (5-19); Potassium 4.4 mmol/L (3.5-5.1)
== END 2022-12-09 08:21 | disposition home or self-care (01) ==
LOC: LAB 08:25
PROVIDERS: PCP Nurse Practitioner; Visit Provider Nurse Practitioner
DX: E55.9 Vitamin D deficiency, unspecified (principal); E11.43 Type 2 diabetes mellitus with diabetic autonomic (poly)neuropathy
CPT/HCPCS: 36415; 80053; 80061; 81003; 82306; 82607; 83036; 84443

== ENCOUNTER → 2023-01-27 09:58 | Outpatient (BNVA) | payer MEDICARE, OTHER, SELFPAY | PROVIDERS: PCP Nurse Practitioner; Visit Provider Podiatrist Foot & Ankle Surgery | DX: E11.8 Type 2 diabetes mellitus with unspecified complications (principal); E11.42 Type 2 diabetes mellitus with diabetic polyneuropathy; L84 Corns and callosities; L60.3 Nail dystrophy; M21.41 Flat foot [pes planus] (acquired), right foot; M21.42 Flat foot [pes planus] (acquired), left foot; M21.622 Bunionette of left foot; M20.42 Other hammer toe(s) (acquired), left foot; M20.41 Other hammer toe(s) (acquired), right foot | CPT/HCPCS: 11055; 11721 ==

== ENCOUNTER → 2023-03-02 09:33 | Outpatient (BNVA) | payer MEDICARE, OTHER, SELFPAY | PROVIDERS: PCP Nurse Practitioner; Visit Provider Nurse Practitioner | DX: E11.42 Type 2 diabetes mellitus with diabetic polyneuropathy (principal); I10 Essential (primary) hypertension; E11.43 Type 2 diabetes mellitus with diabetic autonomic (poly)neuropathy; E55.9 Vitamin D deficiency, unspecified | CPT/HCPCS: 80053; 80061; 82306; 83036; 84443 ==

== ENCOUNTER → 2023-03-26 09:20 | Outpatient (BNVA) | payer MEDICARE, OTHER, SELFPAY | PROVIDERS: PCP Nurse Practitioner; Visit Provider Urology | DX: N40.1 Benign prostatic hyperplasia with lower urinary tract symptoms (principal); N41.1 Chronic prostatitis | CPT/HCPCS: 51798; 81003; 99213 ==

== ENCOUNTER → 2023-04-01 14:53 | Outpatient (BNVA) | payer MEDICARE, OTHER, SELFPAY | PROVIDERS: PCP Nurse Practitioner; Visit Provider Internal Medicine Cardiovascular Disease | DX: R07.89 Other chest pain (principal); Z87.891 Personal history of nicotine dependence | CPT/HCPCS: 99214 ==

== ENCOUNTER → 2023-04-23 11:02 | Outpatient (BNVA) | payer MEDICARE, OTHER, SELFPAY | PROVIDERS: PCP Nurse Practitioner; Visit Provider Internal Medicine Cardiovascular Disease | DX: R00.1 Bradycardia, unspecified (principal); R42 Dizziness and giddiness; S09.90XS Unspecified injury of head, sequela; X58.XXXS Exposure to other specified factors, sequela | CPT/HCPCS: 93246 ==

== ENCOUNTER → 2023-04-30 09:56 | Outpatient (BNVA) | payer MEDICARE, OTHER, SELFPAY | PROVIDERS: PCP Nurse Practitioner; Visit Provider Podiatrist Foot & Ankle Surgery | DX: E11.42 Type 2 diabetes mellitus with diabetic polyneuropathy (principal); L84 Corns and callosities; L60.3 Nail dystrophy; M21.41 Flat foot [pes planus] (acquired), right foot; M21.42 Flat foot [pes planus] (acquired), left foot; M21.622 Bunionette of left foot; M20.42 Other hammer toe(s) (acquired), left foot; M20.41 Other hammer toe(s) (acquired), right foot; Z79.84 Long term (current) use of oral hypoglycemic drugs | CPT/HCPCS: 11055; 11721 ==

== ENCOUNTER → 2023-05-25 09:24 | Outpatient (BNVA) | payer MEDICARE, OTHER, SELFPAY | PROVIDERS: PCP Nurse Practitioner; Visit Provider Nurse Practitioner | DX: E11.65 Type 2 diabetes mellitus with hyperglycemia (principal); E55.9 Vitamin D deficiency, unspecified; I10 Essential (primary) hypertension | CPT/HCPCS: 80053; 80061; 82306; 83036; 84443; 85025 ==

== ENCOUNTER → 2023-07-30 09:54 | Outpatient (BNVA) | payer MEDICARE, OTHER, SELFPAY | PROVIDERS: PCP Nurse Practitioner; Visit Provider Podiatrist Foot & Ankle Surgery | DX: E11.42 Type 2 diabetes mellitus with diabetic polyneuropathy; L84 Corns and callosities; L60.3 Nail dystrophy; Z79.84 Long term (current) use of oral hypoglycemic drugs | CPT/HCPCS: 11055; 11721 ==

== ENCOUNTER → 2023-08-18 09:50 | Outpatient (BNVA) | payer MEDICARE, OTHER, SELFPAY | PROVIDERS: PCP Nurse Practitioner; Visit Provider Nurse Practitioner | DX: I10 Essential (primary) hypertension (principal); E03.8 Other specified hypothyroidism; E11.43 Type 2 diabetes mellitus with diabetic autonomic (poly)neuropathy; E55.9 Vitamin D deficiency, unspecified | CPT/HCPCS: 80053; 80061; 82306; 83036; 84443 ==

== ENCOUNTER → 2023-10-08 13:40 | Outpatient (BNVA) | payer MEDICARE, OTHER, SELFPAY | PROVIDERS: PCP Nurse Practitioner; Visit Provider Nurse Practitioner Family | DX: I25.10 Atherosclerotic heart disease of native coronary artery without angina pectoris (principal); I10 Essential (primary) hypertension; I35.0 Nonrheumatic aortic (valve) stenosis; I73.9 Peripheral vascular disease, unspecified; Z87.891 Personal history of nicotine dependence | CPT/HCPCS: 99214 ==

== ENCOUNTER → 2023-10-13 12:15 | Outpatient (BNVA) | payer MEDICARE, OTHER, SELFPAY | PROVIDERS: PCP Nurse Practitioner; Visit Provider Nurse Practitioner | DX: E03.8 Other specified hypothyroidism (principal) | CPT/HCPCS: 84439; 84443; 84481 ==

== ENCOUNTER 2023-10-19 10:41 | Outpatient (CLI) | payer MEDICARE, OTHER, SELFPAY ==
--- NOTE | 2023-10-19 11:00 | USCV_ITS ---
Mo Van Age: 78 Gender: M : 1945 Exam Date: 10/19/2023 11:01 Ordering Phys: Celia Allen Technologist: Ora Oconnor Exam Location: [facility] – [place] Indication: Aortic stenois, non rheumatic BP: 146 / 90 HR: 47 Rhythm: Sinus Technical Quality: Adequate MEASUREMENTS (Male / Female) Normal Values 2D ECHO LV Diastolic Diameter PLAX 4.5 cm 4.2 - 5.9 / 3.9 - 5.3 cm LV Systolic Diameter PLAX 2.5 cm IVS Diastolic Thickness 1.8 cm 0.6 - 1.0 / 0.6 - 0.9 cm IVS Systolic Thickness 2.2 cm LVPW Diastolic Thickness 1.5 cm 0.6 - 1.0 / 0.6 - 0.9 cm LVPW Systolic Thickness 2.5 cm LVOT Diameter 2.1 cm LV Ejection Fraction 2D Teich 76.9 % LV Ejection Fraction MOD 2C 81.3 % LV Ejection Fraction 2C AL 81.9 % LA Diameter 4.8 cm LA Width 3.1 cm LA Height 6.1 cm RA Width 3.9 cm RA Height 6.1 cm Aorta at Sinotubular Diameter 2.6 cm IVC Diameter 2.1 cm M-MODE Aortic Annulus Diameter 3.9 cm LA Ao Ratio MM 1.5 MV E Point Septal Separation 0.8 cm DOPPLER AV Peak Velocity 337.3 cm/s LVOT Peak Velocity 94.0 cm/s AV Area Cont Eq vti 0.9 cm squared AV Area Cont Eq pk 1.0 cm squared MV Peak Velocity 113.0 cm/s MV Area PHT 1.8 cm squared Mitral E to A Ratio 0.8 MV E' Velocity 38.5 cm/s Mitral E to MV E' Ratio 18.2 Mitral E to LV E' Lateral Ratio 20.8 Mitral E to LV E' Septal Ratio 16.6 TR Peak Velocity 166.0 cm/s TR Peak Gradient 11.0 mmHg Right Atrial Pressure 5.0 mmHg Pulmonary Artery Systolic Pressu 16.0 mmHg PV Peak Velocity 86.0 cm/s RV Acceleration Time 0.1 s RV Ejection Time 0.4 s RV AcT/ET 0.4 FINDINGS Left Ventricle Left ventricle is normal in size. LV systolic function is normal with EF of 60 to 65%. No regional wall motion abnormalities are seen. Grade 1 diastolic dysfunction Right Ventricle Normal in size and function Right Atrium Normal in size Left Atrium Normal in size Mitral Valve Mild to moderate mitral annular calcification seen. Mild mitral regurgitation. Aortic Valve Aortic valve is thickened. Moderate to severe aortic stenosis with aortic valve area of 0.93 cm squared and mean gradient of 23 mmHg. Tricuspid Valve Mild tricuspid regurgitation. Pulmonary artery systolic pressure is normal. Pulmonic Valve Not well visualized Pericardium Normal Aorta Normal in size IVC Appears to be normal CONCLUSIONS LV systolic function is normal with EF 60 to 65%. Mild mitral regurgitation. Moderate to severe aortic stenosis. Mild tricuspid regurgitation Mild tricuspid regurgitation Compared to prior echocardiogram from 2021, aortic stenosis has progressed and is moderate to severe now. Guicho Goff MD (Electronically Signed) Final Date: 03 November 2023 11:17 S
== END 2023-10-19 10:42 | disposition home or self-care (01) ==
LOC: RAD 10:43
PROVIDERS: PCP Nurse Practitioner; Visit Provider Nurse Practitioner Family
DX: I35.0 Nonrheumatic aortic (valve) stenosis (principal); I10 Essential (primary) hypertension; I34.0 Nonrheumatic mitral (valve) insufficiency; I36.1 Nonrheumatic tricuspid (valve) insufficiency
CPT/HCPCS: 93306

== ENCOUNTER 2023-10-29 12:53 | Outpatient (CLI) | payer MEDICARE, OTHER, SELFPAY ==
[2023-10-29 14:27] LABS: Blood Urea Nitrogen 13 mg/dL (8-23)
--- NOTE | 2023-10-29 14:30 | CT_ITS ---
WS: [id number] CT ANGIOGRAPHY OF THE ABDOMINAL AORTA WITH RUNOFF TO THE ANKLES HISTORY: abnormal MARCO A, weak PT pulse, claudication TECHNIQUE: Arterial injection is performed during imaging to evaluate the aorta and runoff vessels to the ankles. MIP and volume rendering imaging has also been performed. All images are reviewed. All C T scans at [facility] use at least one of these dose optimization techniques: automated exposu re control; mA and/or kV adjustment per patient size (includes targeted exams where dose is matched t o clinical indication); or iterative reconstruction. Contrast: Omnipaque 350; 100 mL IV. DLP: 1966.77 mGy.cm COMPARISON: None available. Abdominal aorta: Scattered atherosclerotic plaque increasing below the level of the renal arteries wi th interval thickening. Very slight ectasia and dilatation of the infrarenal aorta measuring 3.6 cm. Very some mild narrowing of the origin celiac axis. SMA is patent. JAIRO may be occluded. Bifurcation i s intact. RIGHT lower extremity arterial system: Mild to moderate stenosis involving the origin of the RIGHT co mmon iliac artery, estimated at 50 to 60%. Iliac arteries tortuous with multifocal plaque. Moderate c alcification continues into the internal and external iliac arteries. 50% stenosis distal RIGHT iliac artery. There is a high-grade, near complete occlusion at the RIGHT femoral artery over the femoral head. High-grade stenoses involving the origins of the SFA and deep profunda. Intermittent plaque con tinues throughout the SFA with near complete occlusion in the distal SFA at Driss's canal. Additiona l significant stenosis in the distal Driss's canal. Moderate atherosclerosis through the popliteal a rtery with 50% stenosis. Tibioperoneal artery with marked atherosclerosis. Very small caliber anterio r tibial artery. There is very small caliber three-vessel runoff to the ankle. Distally the vessels a re coming less distinct. Most robust contrast is in the peroneal artery. LEFT lower extremity arterial system: Mild narrowing origin of the LEFT common iliac artery. Intimal thickening of plaque continues through the internal and external iliac arteries. High-grade stenosis in the femoral artery over the femoral head. Moderate stenosis at the bifurcation of the femoral doug ry. Deep profundus intact. Multifocal areas of plaque throughout the SFA. Moderate stenosis approxima tely 50% mid SFA. Increasing plaque through Driss's canal. Multifocal areas of stenosis but no occlu carole. High-grade stenosis in the popliteal artery approaching 70%. Very small caliber three-vessel ru noff to the ankle. Chronic emphysema at the lung bases. Mild cardiomegaly. Prior cholecystectomy. Negative adrenals, emily er and spleen. No GI tract obstruction. No adenopathy or ascites. Prostate enlargement with calcifica tions. Bladder wall thickening. 5 mm anterolisthesis of L5. Bilateral pars defects at L5. Moderate degenerative joint disease involvi ng the knees. IMPRESSION: 1. 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 2. Origin RIGHT common iliac artery stenosis 50 to 60%. 3. Distal RIGHT iliac artery stenosis 50%. 4. RIGHT femoral artery high-grade stenosis, near complete occlusion. 5. Multifocal plaque throughout the SFA with areas of high-grade stenosis at Driss's canal. 6. RIGHT popliteal artery atherosclerosis with stenoses near 50%. 7. Bilateral three-vessel runoff to the ankle but the arteries are very small caliber. 8. Origin LEFT common iliac artery mild stenosis. 9. LEFT femoral artery high-grade stenosis. 10. LEFT Driss's canal stenosis, high-grade through Driss's canal and the LEFT popliteal artery. A pproaching 70%.
[2023-10-29] MEDS: iohexol 350 mg/mL 500 mL Btl (per mL) IV (14:53)
== END 2023-10-29 12:54 | disposition home or self-care (01) ==
LOC: RAD 12:53
PROVIDERS: PCP Nurse Practitioner; Visit Provider Nurse Practitioner Family
DX: E11.42 Type 2 diabetes mellitus with diabetic polyneuropathy (principal); L60.3 Nail dystrophy; L84 Corns and callosities; M21.621 Bunionette of right foot; I70.203 Unspecified atherosclerosis of native arteries of extremities, bilateral legs; M21.622 Bunionette of left foot; M20.41 Other hammer toe(s) (acquired), right foot; M20.42 Other hammer toe(s) (acquired), left foot; M21.41 Flat foot [pes planus] (acquired), right foot; M21.42 Flat foot [pes planus] (acquired), left foot
CPT/HCPCS: 11055; 11721; 75635; 82565; 84520; Q9967

== ENCOUNTER → 2023-11-11 13:37 | Outpatient (BNVA) | payer MEDICARE, OTHER, SELFPAY | PROVIDERS: PCP Nurse Practitioner; Visit Provider Internal Medicine | DX: I25.10 Atherosclerotic heart disease of native coronary artery without angina pectoris (principal); I35.0 Nonrheumatic aortic (valve) stenosis; I73.9 Peripheral vascular disease, unspecified; I10 Essential (primary) hypertension; Z87.891 Personal history of nicotine dependence | CPT/HCPCS: 99214 ==

== ENCOUNTER 2023-11-18 07:41 | Outpatient (CLI) | payer MEDICARE, OTHER, SELFPAY ==
[2023-11-18] VITALS (29 sets, daily range): BP systolic 110–169; BP diastolic 64–86; PULSE 43–58; RESP 10–27; TEMP 36.7; O2SAT 93–94; BMI 35.6
--- NOTE | 2023-11-18 07:30 | XACV_ITS ---
Ht: 183 cm Wt: 119 kg BSA: 2.50 m2 Any Known Allergies: No known allergies Gender: Male : 1945 Exam Type: Invasive Peripheral Vascular Procedure(s): Procedure Description: Peripheral Cath Diagnostic Procedure Procedure Description: Abdominal aortic angiography Procedure Description: Lower extremities' angiography Exam Priority: Routine Abdominal Diagnostic Findings Distal abdominal aorta: Patent. 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 Lower Extremity Diagnostic Findings INDICATION: Severe bilateral lifestyle limiting claudication. Left lower extremity findings: Left common iliac artery is patent however it is highly tortuous. Left external iliac artery is patent with significant tortuoisty. Left internal iliac artery is patent. Left common femoral artery is heavily calcified and has significant 50-60% stenosis. Left profunda artery is patent. Left SFA has moderate diffuse disease but is patent. Left popliteal artery is patent with moderate diffuse disease. Below the knee patient has severe PAD. TP trunk is 100% occluded with collateral blood supply reconstituting posterior tibial and peroneal arteries. Anterior tibial artery has 70% ostial disease.. Right lower extremity findings: Right common iliac artery has 40% stenosis. It is a tortuous vessel. Right external iliac artery is highly tortuous vessel. In distal segment, there is 50%stenosis. Right common femoral artery is heavily calcified and appears to have severe more than 80% stenosis. Right profunda artery is patent. Right SFA is has moderate diffuse disease. Right popliteal artery has a 50% stenosis. Below the knee patient has severe PAD. Anterior tibial artery appears patent. TP segment appears occluded with reconstitution of the posterior tibial artery via collaterals. Procedure details: We initially obtained access in the left common femoral artery and plan was to perform a peripheral angiogram and possible intervention of right lower extremity. However the left iliac system was highly tortuous and even after several attempts, no catheter could not cross into the distal abdominal aorta. We performed peripheral angiogram of the left lower extremity from left femoral artery sheath. For abdominal aortic aortogram and right lower extremity angiography, access was obtained and left radial artery and advanced a pigtail catheter into the abdominal aorta. Further images were obtained through the pigtail. 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 . Conclusions Severe bilateral peripheral artery disease. I have recommended patient to be referred to vascular surgery for further evaluation as anatomy and lesions are very complex versus medical therapy. Symptoms are of severe claudication, patient wants to continue medical therapy at this time. Recommendations Aggressive risk factor modification. Outpatient cardiology follow up in 1 week. Hemodynamic Data Phase:Rest AO : 155.0 / 61.0 ( 92.0 ) @ 9:56:00 AM 146.0 / 63.0 ( 93.0 ) @ 10:25:00 AM Access Site Site: Left Femoral artery Sheath Size: 6 Fr Hemost... Method: Suture Hemost... Success: Successful Site: Left Radial artery Sheath Size: 6 Fr Hemost... Method: TR Band Hemost... Success: Successful Procedure Details Findings Procedure Consent Obtained. Admit Source: Out Patient. Pre-Procedure Time Out. Identified patient by full name and date of as verbalized by the patient/guarantor. Does the consent match the physician's order: Yes. Accurate & Complete Informed Consent: Yes. Inpatient/Outpatient History & Physical on Chart: Yes. If H&P is completed, is and addenduem needed: Yes; If yes, is the addendum complete: Yes. Visualize and Verify Site with Patient/Guarantor: N/A. Relevant Radiology Images available: Yes. The risks, benefits, and alternatives of sedation and/or procedure were discussed by physician. The patient agrees to continue. Procedure started. Current diagnosis: Lifestyle limiting claudication. PERRLA. Strong, equal hand business supervisor bilaterally. Lungs clear x 5 lobes. IV Site on Arrival: 20 gauge in the left forearm. IV Fluids: 0.9% NaCl at 75ml/hr. 0 mL infused prior to poultry farm laborer. Pre Procedural Pulses: bilateral dorsalis pedis was 2+. Pre Procedural Pulses: bilateral posterior tibial was 1+. Oxygen started at 2liters/min via nasal canula. bilateral groins was prepped with chloroprep then draped in the usual sterile fashion. Physician notified. Baseline sample Acquired. HR: 51 BPM. Physician arrived. Physician scrubbed in. Immediate Pre-Procedure Time Out. Correct Patient: Yes; Correct Procedure: Yes; Correct Site: Yes; Correct Patient Position: Yes; Correct Supplies: Yes; Dried Flammable Prep: No; Blood Products Available: No;. Lidocaine 1% infiltrated to the left groin. An attempt to gain access to the left femoral artery was unsuccessful. Manual pressure was held as needed to stop the bleeding. Arterial access obtained with micropuncture set. Ultrasound obtained to assist with arterial acccess. Glidewire in through microdilator. DSA performed through 6fr common femoral sheath 10ml/sec for a total of 20ml. Glidewire in through sheath. 5fr UF catheter in over glidewire. Glidewire out. DSA performed of common and external iliac through left femoral sheath. 10ml/sec for a total of 10ml. Glidewire in through UF catheter. UF catheter out over glidewire. A 5 faroese JR4 catheter in over wire. Wire and catheter out. Lidocaine 1% infiltrated to the right groin. An attempt to gain access to the right femoral artery was unsuccessful. Manual pressure was held as needed to stop the bleeding. An attempt to gain access to the right femoral artery was unsuccessful. Manual pressure was held as needed to stop the bleeding. Left common femoral selected and arteriogram with runoff performed @ 10 mL/sec for a total of 30 mL. DSA performed below left popliteal to better visualize distal vessels. A 5F JR 4 catheter in over wire. catheter removed over the glidewire. 4Fr Garry cross support catheter in over glidewire. Unablel to advance catheters due to turtuosity. Catheter and wire out. left radial was prepped with chloroprep then draped in the usual sterile fashion. Lidocaine 1% infiltrated to the left radial. Arterial access obtained. A 5 faroese JR4 catheter in over exchange wire. Exchange wire out. Glidewire in through catheter to descending aorta. Catheter out over glidewire. 5fr 125cm pigtail catheter in over glidewire advanced to descending aorta. Glidewire out. Abdominal DSA aortogram performed in AP @ 10 mL/sec for a total of 20 mL. Right common iliac selected and arteriogram with runoff performed @ 10 mL/sec for a total of 30 mL. DSA below right politeal performed @ 10ml/sec for a total of 30ml to better visualize distal vessels. catheter out over wire. Wire out. A TR Band was successful obtaining hemostatsis at the Left Radial artery insertion site. A Suture was successful obtaining hemostatsis at the Left Femoral artery insertion site. Sheath(s) sutured into position with 2-0 silk and sterile 4x4's and Op-site applied over the site. No oozing or signs and symptoms of hematoma noted. Arterial sheath flushed and connected to tranducer and pressure bag with heparinized saline. Post Procedure: Pulses reassessed and unchanged. PERRLA. Strong, equal hand business supervisor bilaterally. No VTE prophylaxis required. Medication's Wasted: Lidocaine 1% = 4 mL. Medication's Wasted: Nitro = 49.8 mg. Medication's Wasted: Heparin = 1000 unit. Total IV fluids: 100 mL. Post-op diagnosis: Severe bilateral PAD. Tortuous peripheral arteries. Complications: None. Estimated blood loss: 5mL-10mL. Responsiveness - Normal response to verbal stimuli; alert and oriented, PERRLA. Airway - Unaffected, no intervention required; spontaneous ventilation. Circulation: W/N/L, pulses unchanged. Nausea/Vomiting: No. Procedure completed. Patient transferred by bed to CPRU. Vital chart was stopped. Procedure Medications Start: 9:28 AM Stop: 9:28 AM Medication: Versed Amount: 1 mg Route: I.V. Start: 9:28 AM Stop: 9:28 AM Medication: Fentanyl Amount: 50 mcg Route: I.V. Start: 9:29 AM Stop: 9:29 AM Medication: Versed Amount: 1 mg Route: I.V. Start: 9:29 AM Stop: 9:29 AM Medication: Fentanyl Amount: 25 mcg Route: I.V. Start: 9:47 AM Stop: 9:47 AM Medication: Versed Amount: 1 mg Route: I.V. Start: 9:47 AM Stop: 9:47 AM Medication: Fentanyl Amount: 25 mcg Route: I.V. Start: 10:18 AM Stop: 10:18 AM Medication: Versed Amount: 1 mg Route: I.V. Start: 10:19 AM Stop: 10:19 AM Medication: Nitrogylcerin Amount: 200 mcg Route: I.A. Start: 10:20 AM Stop: 10:20 AM Medication: Heparin Amount: 3000 units I, the attending physician, have reviewed and verified all procedure medications. Yes, all medications given per verbal order History/Risk Factors Hypertension: Yes Dyslipidemia: Yes Peripheral Arterial Disease (PAD): Yes Obesity: No Renal Disease: No Prior Interventions PCI: No CABG: No Valve Surgery: No Report Signatures Finalized by Guicho Goff MD on 12/02/2023 10:40 AM
[2023-11-18 08:45] LABS: Basophils # 0.1 10^3/uL (0.0-0.1); Eosinophils # 0.2 10^3/uL (0.0-0.8); Eosinophils % 4.2 %; Hematocrit 45.2 % (37-53); Lymphocytes # 1.8 10^3/uL (0.8-4.8); Mean Corpuscular HGB Conc 32.7 g/dL (30-55); Mean Corpuscular Hemoglobin 30.2 pg (27-33); Mean Corpuscular Volume 92.2 fl (82-101); Mean Platelet Volume 8.9 fL (7.4-10.4); Monocytes # 0.5 10^3/uL (0.2-0.9); Monocytes % 9.7 %; Neutrophils # 2.52 10^3/uL (1.8-7.7); Neutrophils % 49.9 %; Nucleated Red Blood Cells % 0 %; Platelet Count 274 10^3/cmm (157-399); Red Cell Distribution Width 12.5 % (12.1-15.1); White Blood Count 5.05 10^3/uL (3.29-11.43)
[2023-11-18 08:52] LABS: Glucose Point of Care 117 mg/dL (70-110)
[2023-11-18 09:03] LABS: Anion Gap 13.9 (5-19); Blood Urea Nitrogen 20 mg/dL (8-23); Calcium 9.1 mg/dL (8.5-10.5); Carbon Dioxide 24 mmol/L (22-29); Chloride 102 mmol/L (98-107); Glucose 128 mg/dL (65-115); Osmolality Calculated 286 mOsm/kg (285-295); Potassium 3.9 mmol/L (3.5-5.1); Sodium 136 mmol/L (136-145)
[2023-11-18] MEDS: diphenhydrAMINE 50 mg Capsule PO (09:10)
[2023-11-18] MEDS: aspirin 325 mg Tablet PO (09:10)
--- NOTE | 2023-11-18 09:25 | W.PM.OPSUD ---
Surgery/Procedure H&P Update DATE OF PROCEDURE: November 18, 2023 DATE H&P PERFORMED: 11/11/23 H&P UPDATE INFORMATION: I have reviewed H&P completed within last 30 days, I have examined patient prior to procedure and No changes to prior documentation PREOP DIAGNOSIS: Lifestyle limiting claudication PRIMARY INDICATION FOR PROCEDURE: Lifestyle limiting claudication PLANNED PROCEDURE: Operation Date: 11/18/23 08:30 Proposed Procedures p perip angiogram 32682,I73.9(Not Applicable) - Guicho Goff M.D Possible intervention PATIENT REASSESSED PRIOR TO SEDATION, WITH NO CHANGE NOTED: Yes PHYSICAL EXAM: alert, oriented x 3, clear to auscultation bilaterally and regular rate & rhythm OTHER PERTINENT EXAM FINDINGS: Pulses not palpable in bilateral lower extremities. Warm lower extremities AIRWAY EVAL/ANESTHESIA PLAN: normal airway, ASA III, Local Anesthesia, Risks, benefits & alternatives of sedation and/or procedure discussed and Patient agrees to continue as planned ADDITIONAL INFORMATION: Moderate sedation
--- NOTE | 2023-11-18 11:22 | PC.NURSE ---
Taken to CSU Pt discharged from CPRU to CSU. Report called to Venita HALL. Pt transferred via bed. L groin and L radial access sites assessed with Justin RN, no hematomas noted. at bedside.
[2023-11-18] MEDS: oxyCODONE-APAP 5-325 mg Tablet 1 TAB PO (13:16)
[2023-11-18] MEDS: gabapentin 400 mg Capsule 800 MG PO (16:17)
== END 2023-11-18 19:56 | disposition home or self-care (01) ==
LOC: CCL 07:42 → CSU 17:26
PROVIDERS: PCP Nurse Practitioner; Visit Provider Internal Medicine
DX: I73.9 Peripheral vascular disease, unspecified (principal); I10 Essential (primary) hypertension; E78.5 Hyperlipidemia, unspecified; Z95.5 Presence of coronary angioplasty implant and graft; E11.9 Type 2 diabetes mellitus without complications; Z79.82 Long term (current) use of aspirin
CPT/HCPCS: 36415; 36416; 75625; 75710; 80048; 82962; 85025; 96361; 96365; 99152; 99153; C1769; C1887; C1894; J1644; J2250; J3010; J3490; J7030; Q0163; Q9967

== ENCOUNTER → 2023-11-20 09:05 | Outpatient (BNVA) | payer MEDICARE, OTHER, SELFPAY | PROVIDERS: PCP Nurse Practitioner; Visit Provider Internal Medicine | DX: I25.118 Atherosclerotic heart disease of native coronary artery with other forms of angina pectoris (principal); I35.0 Nonrheumatic aortic (valve) stenosis; I10 Essential (primary) hypertension; Z87.891 Personal history of nicotine dependence; E11.51 Type 2 diabetes mellitus with diabetic peripheral angiopathy without gangrene; Z79.4 Long term (current) use of insulin | CPT/HCPCS: 99215 ==

== ENCOUNTER 2023-11-25 07:44 | Outpatient (CLI) | payer MEDICARE, OTHER, SELFPAY ==
[2023-11-25] VITALS (12 sets, daily range): BP systolic 124–188; BP diastolic 70–98; PULSE 42–54; RESP 12–41; TEMP 36.6; O2SAT 93–98; BMI 34.5
[2023-11-25] MEDS: aspirin 325 mg Tablet PO (08:15)
[2023-11-25] MEDS: diphenhydrAMINE 50 mg Capsule PO (08:15)
[2023-11-25 08:22] LABS: Basophils # 0.1 10^3/uL (0.0-0.1); Eosinophils # 0.2 10^3/uL (0.0-0.8); Eosinophils % 4.3 %; Hematocrit 47.4 % (37-53); Lymphocytes # 1.7 10^3/uL (0.8-4.8); Mean Corpuscular HGB Conc 32.5 g/dL (30-55); Mean Corpuscular Hemoglobin 30.2 pg (27-33); Mean Corpuscular Volume 92.9 fl (82-101); Mean Platelet Volume 8.7 fL (7.4-10.4); Monocytes # 0.4 10^3/uL (0.2-0.9); Monocytes % 8.4 %; Neutrophils # 2.72 10^3/uL (1.8-7.7); Neutrophils % 53.1 %; Nucleated Red Blood Cells % 0 %; Platelet Count 308 10^3/cmm (157-399); Red Cell Distribution Width 12.2 % (12.1-15.1); White Blood Count 5.12 10^3/uL (3.29-11.43)
[2023-11-25 08:46] LABS: Anion Gap 16.2 (5-19); Blood Urea Nitrogen 19 mg/dL (8-23); Calcium 9.1 mg/dL (8.5-10.5); Carbon Dioxide 24 mmol/L (22-29); Chloride 104 mmol/L (98-107); Creatinine Clr Calc Pharmacy 103.1404; Glucose 141 mg/dL (65-115); Osmolality Calculated 295 mOsm/kg (285-295); Potassium 4.2 mmol/L (3.5-5.1); Sodium 140 mmol/L (136-145)
--- NOTE | 2023-11-25 08:48 | XACV_ITS ---
Exam Room: 2 Ht: 183 cm Wt: 116 kg BSA: 2.46 m2 Gender: Male : 1945 Any Known Allergies: No known allergies Exam Priority: Routine Procedure(s): Procedure Description: Diagnostic procedure Procedure Description: Left Heart Catheterization Procedure Description: Right Heart Catheterization Procedure Description: O2 saturation Procedure Description: Coronary Angiography Diagnostic Cath Status: Urgent Diagnostic Findings * INDICATION: Worsening angina/ Aortic stenosis. * Left Main has no signfiicant disease. * Circumflex is large sized, domninant vessel. Mild luminal irregularities. * Right Coronary Artery is small sized vessel. No significant disease. * Mid LAD has patent prior stent. Apical Left Anterior Descending: mild 40% stenosis, DINO: 3 flow. * Right heart cath: Normal right and left sided cardiac pressures. * Aortic valve study: * Severe aortic stenosis with * aortic valve area * of 1 cm2 and mean gradient across aortic valve of 44 mmHg.. * Coronary angiography shows left dominance. Conclusions 1. Non-obstructive coronary artery disease. 2. Severe aortic stenosis. 3. Normal right and left sided cardiac pressures. Recommendations * Will refer patient to tertiary care hospital for TAVR evaluation. He has difficult anatomy and lesions of lower extremities on peripheral angiogram performed recently. This will make procedure complex. * Outpatient cardiology follow up in 2 weeks. Interventional RX Recommendation: other cardiac therapy w/o CABG/PCI Diagnostic RX Recommendation: other cardiac therapy w/o CABG/PCI Anticoagulation: Heparin Pressures Phase:Rest AO : 87 / 56 ( 71 ) @ 9:19:00 AM 92 / 59 ( 74 ) @ 9:22:00 AM 137 / 66 ( 93 ) @ 9:57:00 AM 128 / 62 ( 88 ) @ 9:57:00 AM LV : 171 / 0 / 23 @ 9:57:00 AM 161 / 1 / 21 @ 9:57:00 AM RV : 34 / 2 / 8 @ 10:19:00 AM PA : 34 / 10 ( 19 ) @ 10:18:00 AM RA : a wave = 9 v wave = 5 mean = 4 @ 10:19:00 AM PCW : a wave = 10 v wave = 11 mean = 7 @ 10:17:00 AM O2 Content Phase:Rest PA : O2 Content O2: 68.3 @ 9:19:00 AM Saturations Phase:Rest AO : 94 @ 9:57:00 AM RA : 69 @ 9:22:00 AM PA : 68 @ 9:19:00 AM Cardiac Output Phase:Rest Karla : 5 @ 10:38:15 AM Karla Cardiac Index: 2 @ 10:38:15 AM Flow Phase:Rest Qp : 5 @ 10:38:15 AM Qs : 5 @ 10:38:15 AM Valves Phase:DefaultPhase AV : 34.0 @ 10:38:15 AM 34.0 @ 10:38:15 AM AV Mean Gradient: 44.0 @ 10:38:15 AM 44.0 @ 10:38:15 AM AV Flow: 304 @ 10:38:15 AM AV Area: 1.0 @ 10:38:15 AM AV Area Index: 0.44 @ 10:38:15 AM Clinical Evaluation EBL: 5mL-10mL Procedural Details Procedure Consent Obtained. Current Diagnosis : Chest Pain. Hemodynamic formulas in Rest were re-calculated based on hemoglobin value from 11/25/2023 12:00:00 AM. Pre-Procedure Time Out. Identified patient by full name and date of as verbalized by the patient/guarantor. Does the consent match the physician's order: Yes. Accurate & Complete Informed Consent: Yes. Inpatient/Outpatient History & Physical on Chart: Yes. If H&P is completed, is and addenduem needed: No; If yes, is the addendum complete: N/A. Visualize and Verify Site with Patient/Guarantor: N/A. Relevant Radiology Images available: Yes. Pre-op teaching completed and patient verbalized understanding. The risks, benefits, and alternatives of sedation and/or procedure were discussed by physician. The patient agrees to continue. Procedure started. [facility] Clinical Fraility Score: 3: Managing Well. Leadership Development Instructor Indications: Worsening Angina. Chest Pain Symptom Assessment: Atypical Angina. Correct patient, site and procedure confirmed by cath team. Current diagnosis: Chest Pain. PERRLA. Strong, equal hand hand grinder bilaterally. Lungs clear x 5 lobes. IV Site on Arrival: 20 gauge in the left wrist. IV Fluids: 0.9% NaCl at KVO. 0 mL infused prior to labview programmer. Pre Procedural Pulses: bilateral dorsalis pedis was 2+. Pre Procedural Pulses: bilateral posterior tibial was 2+. Pre Procedural Pulses: bilateral radial was 3+. Oxygen started at 4liters/min via nasal canula. left radial was prepped with chloroprep then draped in the usual sterile fashion. Baseline sample Acquired. HR: 46 BPM. Physician arrived. Physician scrubbed in. Immediate Pre-Procedure Time Out. Correct Patient: Yes; Correct Procedure: Yes; Correct Site: Yes; Correct Patient Position: Yes; Correct Supplies: Yes; Dried Flammable Prep: Yes; Blood Products Available: N/A;. Lidocaine 1% infiltrated to the left radial. Arterial access obtained. A 5 malian JR4 catheter in over wire. Multiple views taken of right coronary artery. Catheter removed over the exchange wire. A 5 malian JL4 catheter in over wire. Multiple views taken of left coronary artery. Catheter removed over the exchange wire. A 5 malian AL1 catheter in over wire. Wire out. Glidewire inserted through the catheter. Wire out. Glidewire inserted. Catheter removed over the glide wire. A 5 malian JR4 catheter in over wire. Catheter removed over the glide wire. A 5 malian AL2 catheter in over wire. Glidewire out. Exchange wire out. Catheter removed over the exchange wire. Leonardo catheter inserted OTW. Wire out. Gradient taken: LV 171/0,23; AO 137/66(93); Mean: 44mmHg, Peak to Peak: 34mmHg, SEP: 15sec/min; HR: 44 BPM; SpO2: 95%. Catheter removed over the exchange wire. A TR Band was successful obtaining hemostatsis at the Left Radial artery insertion site. A 20 gauge IV was started in the right anticubital using aseptic technique. right brachial was prepped with chloroprep then draped in the usual sterile fashion. Oxygen turned off. Respiratory called to do an ABG. Lidocaine 1% infiltrated to the right brachial. Sheath wire inserted through the right brachial vein IV catheter. IV catheter out OTW. [place]-Jose Alejandro MON catheter inserted. [place] wire inserted through the [place] catheter. Wire out. Pressure measurements obtained. Oximetry samples were obtained. Normal venous range: 60-85%. Normal arterial range: 95-100%. ABG drawn and sent with respiratory therapy. [place]-Jose Alejandro out. Physician scrubbed out. A Manual Compression was successful obtaining hemostatsis at the Right Brachial Vein insertion site. Vital chart was stopped. Post Procedure: Pulses reassessed and unchanged. PERRLA. Strong, equal hand hand grinder bilaterally. No VTE prophylaxis required. Medication's Wasted: Nitro = 49.8 mcg. Medication's Wasted: Other = Fentanyl 50 mcg. Medication's Wasted: Heparin = 3000 units. Total IV fluids: 100 mL. Complications: None. Estimated blood loss: 5mL-10mL. Responsiveness - Normal response to verbal stimuli; alert and oriented, PERRLA. Airway - Unaffected, no intervention required; spontaneous ventilation. Circulation: W/N/L, pulses unchanged. Nausea/Vomiting: No. Procedure completed. Patient transferred by stretcher to CPRU. Access Site Site: Left Radial artery Sheath Size: 6 Fr Hemostasis Method: TR Band Hemostasis Success: Successful Site: Right Brachial Vein Sheath Size: 6 Fr Hemostasis Method: Manual Compression Hemostasis Success: Successful Procedure Medications Start: 9:09 AM Stop: 9:09 AM Medication: Versed Amount: 1 mg Route: I.V. Start: 9:11 AM Stop: 9:11 AM Medication: Fentanyl Amount: 25 mcg Route: I.V. Start: 9:15 AM Stop: 9:15 AM Medication: Nitrogylcerin Amount: 200 mcg Route: I.A. Start: 9:18 AM Stop: 9:18 AM Medication: Heparin Amount: 5000 units Route: I.V. Start: 9:29 AM Stop: 9:29 AM Medication: Fentanyl Amount: 25 mcg Route: I.V. Start: 9:33 AM Stop: 9:33 AM Medication: Heparin Amount: 1000 units Route: I.V. Start: 9:51 AM Stop: 9:51 AM Medication: Versed Amount: 1 mg Route: I.V. I, the attending physician, have reviewed and verified all procedure medications. Yes, all medications given per verbal order History/Risk Factors Hypertension: Yes Dyslipidemia: Yes Peripheral Arterial Disease (PAD): Yes Myocardial Infarction (NE): No Obesity: No Renal Disease: No Prior Interventions PCI: No CABG: No Valve Surgery: No Report Signatures Finalized by Guicho Goff MD on 12/02/2023 10:59 AM
--- NOTE | 2023-11-25 09:08 | W.PM.OPSUD ---
Surgery/Procedure H&P Update DATE OF PROCEDURE: November 25, 2023 DATE H&P PERFORMED: 11/20/23 H&P UPDATE INFORMATION: I have reviewed H&P completed within last 30 days, I have examined patient prior to procedure and No changes to prior documentation PREOP DIAGNOSIS: Worsening angina/Aortic stenosis PRIMARY INDICATION FOR PROCEDURE: Worsening angina/Aortic stenosis PLANNED PROCEDURE: Operation Date: 11/25/23 08:30 Proposed Procedures p Right and Left Heart Cath 99831,35.0, I20.0(Bilateral) - Guicho Goff M.D Possible percutaneous coronary intervention PATIENT REASSESSED PRIOR TO SEDATION, WITH NO CHANGE NOTED: Yes PHYSICAL EXAM: alert, oriented x 3, clear to auscultation bilaterally and regular rate & rhythm AIRWAY EVAL/ANESTHESIA PLAN: normal airway, ASA III, Local Anesthesia, Risks, benefits & alternatives of sedation and/or procedure discussed and Patient agrees to continue as planned
[2023-11-25 10:29] LABS: ABG PCO2 46.2 mmHg (35-45); ABG PH Result 7.38 (7.35-7.45); Alveolar-Arterial Oxygen Gradi 3.5 mmHg (5-10); Arterial Blood Gas Hematocrit 45.6 % (42-52); Base Excess ABG 1.6 mmol/L (-2.0-2.0); Blood Gas Operator Identificat AMH; Blood Gas Sample Site Brachial, right; Blood Gas Sample Type Arterial; Carboxyhemoglobin 1.3 %THgb (0.4-20.1); HCO3 ABG 27.3 mmol/L (22-26); HGB O2 Sat 92.2 % (95-100); Ionized Calcium Level - ABG 1.2 mmol/L (1.1-1.4); Methemoglobin 0.7 % (0.4-1.5); Oxygen Device ROOM AIR; Oxygen Saturation ABG 94.1; PO2 FiO2 Ratio Arterial Blood 0; Potassium Level - ABG 3.9 mmol/L (3.5-5.0); Total Hemoglobin 14.9 g/dL (14-18)
--- NOTE | 2023-11-25 10:30 | SUR.PHASEII ---
Received patient from the cathodic protection technician- status post cardiac catheterization via the left radial and right brachial veins. Assessments and vitals per flowsheets. Verbal post cath instructions went over with the patient and spouse. They understood well. MD in to discuss findings with them. No new orders at this time. Call light in reach. Informed to call for needs.
--- NOTE | 2023-11-25 10:30 | SUR.PHASEII ---
IV 0.9% NS at 100 ml/hr. Infusing post cath as ordered.
[2023-11-25 10:31] LABS: Arterial Blood Gas Hematocrit 45.3 % (42-52); Blood Gas Operator Identificat RIGHT ATRIUM; Blood Gas Sample Site Not specified; Blood Gas Sample Type Not specified; Carboxyhemoglobin 1.4 %THgb (0.4-20.1); HGB O2 Sat 67.9 % (95-100); Methemoglobin 0.6 % (0.4-1.5); Oxygen Device ROOM AIR; Total Hemoglobin 14.8 g/dL (14-18)
[2023-11-25 10:32] LABS: Arterial Blood Gas Hematocrit 44.3 % (42-52); Blood Gas Operator Identificat PULM ART; Blood Gas Sample Site Not specified; Blood Gas Sample Type Not specified; Carboxyhemoglobin 1.4 %THgb (0.4-20.1); HGB O2 Sat 66.9 % (95-100); Methemoglobin 0.6 % (0.4-1.5); Oxygen Device ROOM AIR; Total Hemoglobin 14.5 g/dL (14-18)
== END 2023-11-25 13:22 | disposition home or self-care (01) ==
PROVIDERS: PCP Nurse Practitioner; Visit Provider Internal Medicine
DX: I35.0 Nonrheumatic aortic (valve) stenosis (principal); I25.110 Atherosclerotic heart disease of native coronary artery with unstable angina pectoris; I10 Essential (primary) hypertension; E78.5 Hyperlipidemia, unspecified; Z95.5 Presence of coronary angioplasty implant and graft; Z79.82 Long term (current) use of aspirin; E11.65 Type 2 diabetes mellitus with hyperglycemia; G47.33 Obstructive sleep apnea (adult) (pediatric); N40.1 Benign prostatic hyperplasia with lower urinary tract symptoms; N13.8 Other obstructive and reflux uropathy; Z87.891 Personal history of nicotine dependence
CPT/HCPCS: 36415; 36600; 80048; 80051; 82330; 82805; 82810; 85025; 93460; 96361; 96365; 99152; 99153; C1751; C1769; C1887; C1894; J1644; J2250; J3010; J3490; J7030; Q0163; Q9967

== ENCOUNTER → 2023-12-01 10:09 | Outpatient (BNVA) | payer MEDICARE, OTHER, SELFPAY | PROVIDERS: PCP Nurse Practitioner; Visit Provider Nurse Practitioner | DX: E11.43 Type 2 diabetes mellitus with diabetic autonomic (poly)neuropathy (principal); E55.9 Vitamin D deficiency, unspecified; E11.65 Type 2 diabetes mellitus with hyperglycemia; I10 Essential (primary) hypertension | CPT/HCPCS: 80053; 80061; 82306; 82607; 83036; 84443 ==

== ENCOUNTER → 2023-12-08 13:17 | Outpatient (BNVA) | payer MEDICARE, OTHER, SELFPAY | PROVIDERS: PCP Nurse Practitioner; Visit Provider Nurse Practitioner Family | DX: I35.0 Nonrheumatic aortic (valve) stenosis (principal) | CPT/HCPCS: 99213 ==

== ENCOUNTER → 2024-02-25 14:54 | Outpatient (BNVA) | payer MEDICARE, OTHER, SELFPAY | PROVIDERS: PCP Nurse Practitioner; Visit Provider Nurse Practitioner | DX: E03.8 Other specified hypothyroidism (principal); E11.9 Type 2 diabetes mellitus without complications | CPT/HCPCS: 80053; 80061; 83036; 84443 ==

== ENCOUNTER → 2024-03-08 13:06 | Outpatient (BNVA) | payer MEDICARE, OTHER, SELFPAY | PROVIDERS: PCP Nurse Practitioner; Visit Provider Podiatrist Foot & Ankle Surgery | DX: E11.42 Type 2 diabetes mellitus with diabetic polyneuropathy (principal); L84 Corns and callosities; L60.3 Nail dystrophy; M21.621 Bunionette of right foot; M21.622 Bunionette of left foot; M20.41 Other hammer toe(s) (acquired), right foot; M20.42 Other hammer toe(s) (acquired), left foot; M21.41 Flat foot [pes planus] (acquired), right foot; M21.42 Flat foot [pes planus] (acquired), left foot | CPT/HCPCS: 11055; 11721 ==

== ENCOUNTER → 2024-03-15 13:03 | Outpatient (BNVA) | payer MEDICARE, OTHER, SELFPAY | PROVIDERS: PCP Nurse Practitioner; Visit Provider Nurse Practitioner | DX: Z95.2 Presence of prosthetic heart valve (principal) | CPT/HCPCS: 80048; 83880 ==

== ENCOUNTER 2024-03-17 08:09 | Outpatient (CLI) | payer MEDICARE, OTHER, SELFPAY ==
--- NOTE | 2024-03-17 08:14 | USCV_ITS ---
Mo Van Age: 79 Gender: M : 1945 Exam Date: 03/17/2024 08:20 Ordering Phys: Guicho Goff M.D ([email or web address]) Technologist: Exam Location: [facility] Indication: ao prosthesis tavor BP: 180 / 90 HR: 75 Rhythm: Sinus Technical Quality: Adequate MEASUREMENTS (Male / Female) Normal Values 2D ECHO LV Diastolic Diameter PLAX 3.8 cm 4.2 - 5.9 / 3.9 - 5.3 cm IVS Diastolic Thickness 1.3 cm 0.6 - 1.0 / 0.6 - 0.9 cm IVS Systolic Thickness 1.9 cm LVPW Diastolic Thickness 1.3 cm 0.6 - 1.0 / 0.6 - 0.9 cm LVPW Systolic Thickness 2.0 cm LVOT Diameter 2.1 cm LV Ejection Fraction 2D Teich 65.2 % LV Ejection Fraction MOD 2C 81.7 % LV Ejection Fraction 2C AL 81.7 % LA Diameter 3.7 cm RA Systolic Volume 4C AL 55.1 ml RA Systolic Volume 4C MOD 54.3 ml LA Sys Volume AL 116.6 cm cubed LA Sys Volume Index AL 45.9 cm cubed/m squared Aorta at Sinotubular Diameter 3.5 cm IVC Diameter 1.9 cm M-MODE LA Ao Ratio MM 1.5 AV Cusp Separation MM 2.8 cm DOPPLER AV Peak Velocity 197.3 cm/s LVOT Peak Velocity 95.0 cm/s AV Area Cont Eq vti 1.6 cm squared AV Area Cont Eq pk 1.7 cm squared MV Peak Velocity 102.7 cm/s MV Area PHT 2.3 cm squared Mitral E to A Ratio 0.8 TR Peak Velocity 143.0 cm/s TR Peak Gradient 8.2 mmHg TV Peak E Velocity 193.0 cm/s Right Atrial Pressure 3.0 mmHg Pulmonary Artery Systolic Pressu 11.2 mmHg PV Peak Velocity 95.0 cm/s FINDINGS Left Ventricle The examination is technically limited. Only limited parasternal, apical and subcostal views were obtained. M-mode and Doppler examinations were limited. Normal left ventricular size, systolic function and wall thickness, with no regional wall motion abnormalities. Grade I/IV diastolic dysfunction (abnormal relaxation filling pattern), normal to mildly elevated filling pressures. Left ventricular ejection fraction is estimated at 60 %. Right Ventricle Normal right ventricular size and systolic function. Normal right ventricular systolic pressure. Right Atrium The right atrium is normal in size. Left Atrium The left atrium is normal in size. Mitral Valve Structurally normal mitral valve. Trace mitral valve regurgitation. Aortic Valve Aortic valve is not well-seen. There is limited interrogation of the valve. What is noted is a mean gradient of 7 mmHg and a average aortic valve area of about 1.67 cm squared. There may be trace aortic insufficiency. Tricuspid Valve Structurally normal tricuspid valve. Pulmonic Valve Structurally normal pulmonic valve. Pericardium Normal pericardium without effusion. Aorta Proximal aortic diameter is 3.67 cm. IVC The inferior vena cava appears normal. CONCLUSIONS The examination is technically limited. Only limited parasternal, apical and subcostal views were obtained. M-mode and Doppler examinations were limited. Normal left ventricular size, systolic function and wall thickness, with no regional wall motion abnormalities. Grade I/IV diastolic dysfunction (abnormal relaxation filling pattern), normal to mildly elevated filling pressures. Left ventricular ejection fraction is estimated at 60 %. Structurally normal mitral valve. Trace mitral valve regurgitation. Aortic valve is not well-seen. There is limited interrogation of the valve. What is noted is a mean gradient of 7 mmHg and a average aortic valve area of about 1.67 cm squared. There may be trace aortic insufficiency. Proximal aortic diameter is 3.67 cm. Previous study was at the end of October of this year. The moderate to severe aortic stenosis noted on that study is not evident on today's study. At worst there is mild aortic stenosis. Otherwise there is no change. Dr. Gabino Wilkins MD (Electronically Signed) Final Date: 17 March 2024 14:14 S
== END 2024-03-17 08:10 | disposition home or self-care (01) ==
LOC: RAD 08:09
PROVIDERS: PCP Nurse Practitioner; Visit Provider Internal Medicine Cardiovascular Disease
DX: I35.0 Nonrheumatic aortic (valve) stenosis (principal); I50.30 Unspecified diastolic (congestive) heart failure
CPT/HCPCS: 93306

== ENCOUNTER 2024-04-23 13:45 | Inpatient (IN) | payer MEDICARE, OTHER, SELFPAY ==
[2024-04-23] VITALS (14 sets, daily range): BP systolic 104–147; BP diastolic 75–110; PULSE 137–147; RESP 12–27; TEMP 36.3–36.9; O2SAT 91–98; BMI 36.2; BMI 36.8
--- NOTE | 2024-04-23 14:29 | XRR_ITS ---
PROCEDURE INFORMATION: Exam: XR Chest Exam date and time: 04/23/2024 3:06 PM Age: 79 years old Clinical indication: Cough and dyspnea; Prior surgery; Surgery date: <1 month; Surgery type: Heart; Additional info: Dyspnea/cough TECHNIQUE: Imaging protocol: Radiologic exam of the chest. Views: 1 view. COMPARISON: No relevant prior studies available. FINDINGS: Tubes, catheters and devices: Surgical clips in the lower neck. Lungs: There is left lower lobe consolidation/collapse. Pleural spaces: Blunting of the left costophrenic angle suspicious for a small pleural effusion. No right pleural effusion. Heart/Mediastinum: There is cardiomegaly. Vasculature: Aortic arch calcifications. Unfolding of the thoracic aorta. Bones/joints: Mild degenerative disease of the right acromioclavicular and bilateral glenohumeral joints. Widening of the left acromioclavicular joint, suggestive of prior surgery. XR/XR chest 1V portable [id number] IMPRESSION: Left lower lobe consolidation collapse with a possible small left pleural effusion.
[2024-04-23 14:37] LABS: Basophils % 0.7 %; Eosinophils # 0.3 10^3/uL (0.0-0.8); Eosinophils % 4.2 %; Hematocrit 46.5 % (37-53); Lymphocytes # 1.7 10^3/uL (0.8-4.8); Lymphocytes % 28.7 %; Mean Corpuscular HGB Conc 32.3 g/dL (30-55); Mean Corpuscular Hemoglobin 29.7 pg (27-33); Mean Corpuscular Volume 92.1 fl (82-101); Mean Platelet Volume 9.4 fL (7.4-10.4); Monocytes # 0.6 10^3/uL (0.2-0.9); Monocytes % 9.6 %; Neutrophils # 3.37 10^3/uL (1.8-7.7); Neutrophils % 56.6 %; Nucleated Red Blood Cells % 0 %; Platelet Count 288 10^3/cmm (157-399); Red Blood Count 5.05 10^6/uL (3.85-5.65); Red Cell Distribution Width 13.1 % (12.1-15.1); White Blood Count 5.95 10^3/uL (3.29-11.43)
[2024-04-23] MEDS: dilTIAZem 5 mg/mL SDV 5 mL 10 MG IVP (14:39)
[2024-04-23 14:48] LABS: Alanine Aminotransferase 18 U/L (0-41); Albumin Level 3.8 g/dL (3.5-5.2); Alkaline Phosphatase 80 U/L (40-130); Aspartate Amino Transferase 16 U/L (0-40); Blood Urea Nitrogen 27 mg/dL (8-23); Calcium 9.3 mg/dL (8.5-10.5); Carbon Dioxide 23 mmol/L (22-29); Chloride 102 mmol/L (98-107); Globulin 3.3 g/dL (1.3-4.6); Glucose 149 mg/dL (65-115); Osmolality Calculated 290 mOsm/kg (285-295); Sodium 136 mmol/L (136-145); Total Bilirubin 0.4 mg/dL (0.15-1.2); Total Protein 7.1 g/dL (6.6-8.7)
[2024-04-23] MEDS: dilTIAZem 100 MG in sodium chloride 0.9% (add-van) 100 ML IV (14:48)
[2024-04-23 14:50] LABS: Troponin(5th) Baseline 42 ng/L (0-15)
[2024-04-23] MEDS: heparin 5,000 unit/mL INJ 1 mL IV (14:54)
[2024-04-23] MEDS: heparin drip 25,000 UNIT/500 ML PREMIX 33.91 UNIT IV (14:59)
--- NOTE | 2024-04-23 14:59 | ECG_ITS ---
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 Measurements Intervals Diagonal Rate: 146 P: 0 AL: 0 QRS: -56 QRSD: 98 T: 57 QT: 324 QTc: 506 Interpretive Statements ATRIAL FLUTTER/TACHYCARDIA WITH RAPID VENTRICULAR RESPONSE INFERIOR MYOCARDIAL INFARCTION , OF INDETERMINATE AGE [40+ ms Q WAVE AND/OR ST/T ABNORMALITY IN II/aVF] No previous ECG available for comparison Electronically Signed On 04-24-2024 16:04:08 CDT by Seng Villela M.D. [id number]
--- NOTE | 2024-04-23 15:19 | ED_ITS ---
HPI - Arrhythmia/Palpitations 2 General: Chief Complaint: Shortness of Breath/Dyspnea Stated Complaint: SOB Time Seen by Provider: 04/23/24 13:56 Source: patient Mode of arrival: ambulatory History of Present Illness: 79-year-old male presents emergency room complaining of shortness of breath last 3 days. Patient previously had a TAVR procedure earlier this year he said since then he is intermittently not felt well. He has had mild chest discomfort x 2 weeks had some abdominal discomfort and diarrhea. Bloating. Cough and some shortness of breath MD complaint: rapid heart beat and heart racing Duration: intermittent Severity: moderate Associated symptoms: Reports nausea; Deny anxiety, cough, diaphoresis, muscle cramps, paresthesias, pre-syncope, sense of impending doom, short of breath, syncope or vomiting Review of Systems 2 Const: Denies: fever(s), chills or diaphoresis Card: Reports: chest pain, palpitations, irregular heart rhythm and dyspnea on exertion; Denies: edema, swelling of feet/ankles, syncope or pre-syncope Resp: Reports: dyspnea and non-productive cough GI: Reports: abdominal pain, nausea and diarrhea; Denies: vomiting : Denies: dysuria, urinary frequency or urinary urgency Musc: Denies: muscle cramps Skin/Breast: Denies: rash Psych: Denies: anxiety PFSH ED 2 PFSH: Medical History Hammertoe, bilateral Aortic stenosis Tubular adenoma of colon Helicobacter pylori gastritis Diabetes mellitus with hyperglycemia, without long-term current use of insulin Umbilical hernia Chest pain at rest Allergic rhinitis due to allergen Bilateral hearing loss due to cerumen impaction Dizziness and giddiness DDD (degenerative disc disease), lumbar Diverticula, colon Dependence on nocturnal oxygen therapy Osteoarthritis, knee DM autonomic neuropathy GREG on CPAP BPH loc w urin obs/LUTS Good response and durably so to dual medical therapy of FINASTERIDE/TAMSULOSIN (single dose) Chronic prostatitis On self treatment with CIPROFLOXACIN. Sporadic treatment required. Arteriosclerosis of coronary artery Urinary hesitancy Pain in thoracic spine at multiple sites Vitamin D insufficiency Dyslipidemia Adult onset hypothyroidism CAD (coronary artery disease) GERD (gastroesophageal reflux disease) Essential (primary) hypertension Surgical History History of oral surgery Removal oral extraction 02/02/24 in [place], [place] History of aortic valve replacement 02/03/24 at [facility] in [place], [place] History of angiography With stent placement History of appendectomy History of carotid artery disease surgery right bilateral 2007 History of cataract surgery right and left History of cholecystectomy History of hernia repair Left H/O rectal polypectomy History of surgery on arm right skin graft age 17 History of surgical amputation of finger of right hand age 17 History of colonoscopy 2017 repeat in 3 years Family History (System 04/23/24 @ 16:34 by Angeli Mcgee) Mother Cancer Father CAD (coronary artery disease) Stroke Denies family history of Bleeding disorder Social History (System 04/23/24 @ 16:34 by Angeli Mcgee) Smoking and tobacco/nicotine status: unknown if used tobacco/nicotine Second hand smoke exposure: No Alcohol intake: never Substance/Drug Use: never Adopted: No Caregiver/support person: No Lives independently: Yes Household members: spouse Housing: House Marital status: service: No Current occupational status: employed and retired Do you think of yourself as: Straight/Heterosexual Current gender identity: Male Physical Exam 2 Const: GENERAL APPEARANCE: cooperative and comfortable O RIENTATION/CONSCIOUSNESS: Yes awake, Yes oriented to person, Yes oriented to place and Yes oriented to time HENMT: COMMON NORMALS: normocephalic, atraumatic and hearing grossly normal bilaterally HEAD & SCALP: normocephalic and atraumatic Resp: COMMON NORMALS: normal respiratory effort, No retractions and No use of accessory muscles AUSCULTATION: crackles Cardio: COMMON NORMALS: No murmurs present (Cardio) RATE: tachycardic R HYTHM: abnormal rhythm irregularly irregular GI: COMMON NORMALS: Soft to palpation and No hepatosplenomegaly present A USCULTATION: Yes normoactive bowel sounds PALPATION: Yes Soft to palpation, No Tenderness to palpation present (GI), No Guarding due to palpation present (GI) and Yes No hepatosplenomegaly present Extremity: COMMON NORMALS: normal to inspection, capillary refill normal, no clubbing, cyanosis or edema, no calf tenderness and no pedal edema Neuro: SENSORIUM/ORIENTATION: Yes oriented to person, Yes oriented to place and Yes oriented to time Skin: COMMON NORMALS: no rashes or lesions noted GENERAL SKIN EXAM: no rashes or lesions noted Course 2 Vital Signs: Vital signs: Vital Signs Temperature 98.2 F 04/23/24 13:46 Pulse Rate 143 H 04/23/24 17:00 Respiratory Rate 27 H 04/23/24 17:00 Blood Pressure 125/89 04/23/24 17:00 Pulse Oximetry 94 04/23/24 17:00 Oxygen Delivery Me thod Room Air 04/23/24 13:46 MDM - Arrhythmia/Palpitations Medical Decision Making Patient has atrial fibrillation/flutter with rapid heart rate initially treated with Cardizem he maxed out on Cardizem with no improvement of his heart rate and he was changed to amiodarone. Chest x-ray read as possible left lower lobe pneumonia. Discussed Dr. Romero. His white count was normal and she started Zosyn to cover. BNP slightly elevated at 1705. Orders written admit to [facility]. Differential Diagnosis Likely artial fibrillation Medical Records I reviewed the patient's medical records. Lab Data I reviewed the patient's lab results. 04/23/24 14:05 04/23/24 14:05 Radiology Impressions Chest X-Ray 04/23/24 14:29 IMPRESSION: Left lower lobe consolidation collapse with a possible small left pleural effusion. Laboratory Results WBC 5.95 10^3/uL (3.29-11.43) 04/23/24 14:05 RBC 5.05 10^6/uL (3.85-5.65) 04/23/24 14:05 Hgb 15.00 g/dL (11.27-16.99) 04/23/24 14:05 Hct 46.5 % (37-53) 04/23/24 14:05 MCV 92.1 fl (82-101) 04/23/24 14:05 MCH 29.7 pg (27-33) 04/23/24 14:05 MCHC 32.3 g/dL (30-55) 04/23/24 14:05 RDW 13.1 % (12.1-15.1) 04/23/24 14:05 Plt Count 288 10^3/cmm (157-399) 04/23/24 14:05 MPV 9.4 fL (7.4-10.4) 04/23/24 14:05 Neut % (Auto) 56.6 % 04/23/24 14:05 Lymph % (Auto) 28.7 % 04/23/24 14:05 Archer % (Auto) 9.6 % 04/23/24 14:05 Eos % (Auto) 4.2 % 04/23/24 14:05 Baso % (Auto) 0.7 % 04/23/24 14:05 Neut # (Auto) 3.37 10^3/uL (1.8-7.7) 04/23/24 14:05 Lymph # (Auto) 1.7 10^3/uL (0.8-4.8) 04/23/24 14:05 Archer # (Auto) 0.6 10^3/uL (0.2-0.9) 04/23/24 14:05 Eos # (Auto) 0.3 10^3/uL (0.0-0.8) 04/23/24 14:05 Baso # (Auto) 0.0 10^3/uL (0.0-0.1) 04/23/24 14:05 Nucleated RBC % (auto) 0 % 04/23/24 14:05 Nucleated RBCs # 0.0 /100WBC 04/23/24 14:05 Sodium 136 mmol/L (136-145) 04/23/24 14:05 Potassium 4.0 mmol/L (3.5-5.1) 04/23/24 14:05 Chloride 102 mmol/L (98-107) 04/23/24 14:05 Carbon Dioxide 23 mmol/L (22-29) 04/23/24 14:05 Anion Gap 15.0 (5-19) 04/23/24 14:05 BUN 27 mg/dL (8-23) H 04/23/24 14:05 Creatinine 1.1 mg/dL (0.7-1.2) 04/23/24 14:05 GFR Calculation Not Reportable 04/23/24 14:05 Glucose 149 mg/dL (65-115) H 04/23/24 14:05 Estimat Average Glucose 146 04/23/24 14:05 Hemoglobin A1c 6.7 % (4.0-6.0) H 04/23/24 14:05 Calculated Osmolality 290 mOsm/kg (285-295) 04/23/24 14:05 Calcium 9.3 mg/dL (8.5-10.5) 04/23/24 14:05 Total Bilirubin 0.4 mg/dL (0.15-1.2) 04/23/24 14:05 AST 16 U/L (0-40) 04/23/24 14:05 ALT 18 U/L (0-41) 04/23/24 14:05 Alkaline Phosphatase 80 U/L (40-130) 04/23/24 14:05 Troponin T Baseline 42 ng/L (0-15) H 04/23/24 14:05 NT-Pro-B Natriuret Pep 1705 pg/mL (0-450) H 04/23/24 14:05 Total Protein 7.1 g/dL (6.6-8.7) 04/23/24 14:05 Albumin 3.8 g/dL (3.5-5.2) 04/23/24 14:05 Globulin 3.3 g/dL (1.3-4.6) 04/23/24 14:05 Triglycerides 246 mg/dL (0-150) H 04/23/24 14:05 Cholesterol 203 mg/dL (0-200) H 04/23/24 14:05 LDL Cholesterol, Calc 127 mg/dL (50-129) 04/23/24 14:05 HDL Cholesterol 27 mg/dL (60-100) L 04/23/24 14:05 LDL/HDL Ratio 4.70 RATIO (0.00-3.22) H 04/23/24 14:05 Cholesterol/HDL Ratio 7.52 mg/dL (1.0-5.00) H 04/23/24 14:05 TSH 3.22 uIU/mL (0.27-4.20) 04/23/24 14:05 Urine Color Yellow (Yellow) 04/23/24 15:36 Urine Appearance Clear (CLEAR) 04/23/24 15:36 Urine pH 5 (5-7) 04/23/24 15:36 Ur Specific [place] 1.025 (1.005-1.030) 04/23/24 15:36 Urine Protein Neg (Negative) 04/23/24 15:36 Urine Glucose (UA) Norm (Normal) 04/23/24 15:36 Urine Ketones Negative (Negative) 04/23/24 15:36 Urine Blood Neg (Negative) 04/23/24 15:36 Urine Nitrate Negative (Negative) 04/23/24 15:36 Urine Bilirubin Neg (Negative) 04/23/24 15:36 Urine Urobilinogen Norm mg/dL (Negative) 04/23/24 15:36 Ur Leukocyte Esterase Negative (Negative) 04/23/24 15:36 All radiology interpretation(s) finalized by discharge Discharge Plan Discharge Patient Disposition: Admitted As Inpatient Admit Provider: Leisa Romero Clinical Impression: Atrial flutter, Pleural effusion on left, Heart failure Condition: Stable Coding Level of Care Code ED Planograph Operator for Lindsay Vazquez
[2024-04-23] MEDS: amiodarone 150 MG/100 ML PREMIX 400 MG IV (15:45)
[2024-04-23 15:46] LABS: Add Urine Microscopic? NO; Charge for UA Resulting for Rev
[2024-04-23 15:48] LABS: Bilirubin Urine Neg (Negative); Blood Urine Neg (Negative); Glucose Urine UA Norm (Normal); Ketones Urine Negative (Negative); Leukocyte Esterase Urine Negative (Negative); Nitrate Urine Negative (Negative); Protein Urine Neg (Negative); Specific Gravity, Urine 1.025 (1.005-1.030); Urine Appearance Clear (CLEAR); Urine Color Yellow (Yellow); Urobilinogen Urine Norm (Negative); pH Urine 5 (5-7)
--- NOTE | 2024-04-23 16:18 | CTR_ITS ---
PROCEDURE INFORMATION: Exam: CT Chest Without Contrast; Diagnostic Exam date and time: 04/23/2024 5:41 PM Age: 79 years old Clinical indication: Other: N/a; Abdominal pain; Generalized; Cough and shortness of breath; Prior surgery; Surgery date: 6+ months; Surgery type: Aortic valve. Coronary stents. Gb. Hernia repair. Appy. Patient HX: Cough with SOB and hypoxia. Diffuse abd pain. ; Additional info: Abdominal pain, new hypoxia, a fib, assess for pneumonia on CT chest; Diverticulitis on CT TECHNIQUE: Imaging protocol: Diagnostic computed tomography of the chest without contrast. Radiation optimization: All CT scans at this facility use at least one of these dose optimization techniques: automated exposure control; mA and/or kV adjustment per patient size (includes targeted exams where dose is matched to clinical indication); or iterative reconstruction. COMPARISON: CT abdomen pelvis con [id number] 12/25/2021 8:11 AM RADIATION DOSE METRICS: Total DLP (mGy-cm): 1359.66 FINDINGS: Lungs: There are emphysematous changes in the lungs. There is consolidation at the posterior aspect of the left upper lobe and inferior aspect of the left lower lobe. Pleural spaces: Unremarkable. No pneumothorax. No pleural effusion. Heart: Unremarkable. No cardiomegaly. No pericardial effusion. Lymph nodes: Unremarkable. No enlarged lymph nodes. Vasculature: Unremarkable. No aortic aneurysm. Diaphragm: Elevation of the left hemidiaphragm. Bones/joints: There are degenerative changes in the visualized spine. Soft tissues: Unremarkable. COMMENTS: The presence of pulmonary emphysema on CT is an independent risk factor for lung cancer. In the absence of a history or active diagnosis of lung cancer, it is recommended that this patient with emphysema be evaluated for enrollment in a low dose CT lung cancer screening program. PROCEDURE INFORMATION: Exam: CT Abdomen And Pelvis Without Contrast Exam date and time: 04/23/2024 5:41 PM Age: 79 years old Clinical indication: Other: N/a; Abdominal pain; Generalized; Cough and shortness of breath; Prior surgery; Surgery date: 6+ months; Surgery type: Aortic valve. Coronary stents. Gb. Hernia repair. Appy. Patient HX: Cough with SOB and hypoxia. Diffuse abd pain. ; Additional info: Abdominal pain, new hypoxia, a fib, assess for pneumonia on CT chest; Diverticulitis on CT TECHNIQUE: Imaging protocol: Computed tomography of the abdomen and pelvis without contrast. Radiation optimization: All CT scans at this facility use at least one of these dose optimization techniques: automated exposure control; mA and/or kV adjustment per patient size (includes targeted exams where dose is matched to clinical indication); or iterative reconstruction. COMPARISON: CT abdomen pelvis wo con [id number] 12/25/2021 8:11 AM RADIATION DOSE METRICS: Total DLP (mGy-cm): 1359.66 FINDINGS: Coronary arteries: Multivessel atherosclerotic disease which involves the coronary arteries. Liver: Normal. No mass. Gallbladder and biliary ducts: The gallbladder has been removed. Pancreas: Normal. No ductal dilation. Spleen: Normal. No splenomegaly. Adrenal glands: Normal. No mass. Kidneys and ureters: Normal. No hydronephrosis. Stomach and bowel: There is diverticulosis of the colon without evidence of diverticulitis. Appendix: No evidence of appendicitis. Intraperitoneal space: Unremarkable. No free air. No significant fluid collection. Vasculature: Infrarenal abdominal aorta is aneurysmal measuring 3.4 x 3.4 cm in AP/transverse dimensions. No evidence for rupture. Lymph nodes: Unremarkable. No enlarged lymph nodes. Urinary bladder: Unremarkable as visualized. Reproductive: Prostate gland indents the base of the bladder consistent with median lobe enlargement. Bones/joints: There are degenerative changes in the visualized spine. 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 There is resultant grade 1 spondylolisthesis at L5-S1 with bilateral neural foraminal narrowing. Lower lumbar broad-based disc osteophyte complexes. Degenerative changes are present across the pubic symphysis and sacroiliac joints. Soft tissues: Unremarkable. CT/[place] [id number] IMPRESSION: 1. There is elevation of the left hemidiaphragm. Consolidation in the left upper lobe and left lower lobe may be a result of this and represent atelectasis. Pneumonia cannot be excluded. 2. Emphysematous changes are present in the lungs. IMPRESSION: 1. Prostate gland indents the base of the bladder consistent with median lobe enlargement. 2. 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 There is resultant grade 1 spondylolisthesis at L5-S1 with bilateral neural foraminal narrowing. Lower lumbar broad-based disc osteophyte complexes. 3. Infrarenal abdominal aorta is aneurysmal measuring 3.4 x 3.4 cm in AP/transverse dimensions. No evidence for rupture. 4. There is diverticulosis of the colon without evidence of diverticulitis.
[2024-04-23 16:29] LABS: Troponin 5 2HR 43.71 ng/L (0-15); Troponin 5 2HR Delta 1.71 ABS# (0-10)
--- NOTE | 2024-04-23 16:29 | ECG_ITS ---
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 Measurements Intervals [place] Rate: 147 P: 0 FL: 0 QRS: -61 QRSD: 117 T: -22 QT: 287 QTc: 449 Interpretive Statements ATRIAL FLUTTER/TACHYCARDIA WITH RAPID VENTRICULAR RESPONSE PATTERN CONSISTENT WITH PULMONARY DISEASE No previous ECG available for comparison Electronically Signed On 04-24-2024 16:02:27 CDT by Seng Villela M.D. [id number]
[2024-04-23 16:30] LABS: Estmated Average Glucose 146; Hemoglobin A1C 6.7 % (4.0-6.0)
[2024-04-23 16:32] LABS: Chol HDL Ratio 7.52 mg/dL (1.0-5.00); Cholesterol 203 mg/dL (0-200); HDL Cholesterol 27 mg/dL (60-100); LDL Cholesterol Calculated 127 mg/dL (50-129); NT Pro B Type Natriuretic Pept 1705 pg/mL (0-450); Thyroid Stimulating Hormone 3.22 uIU/mL (0.27-4.20); Triglycerides 246 mg/dL (0-150)
[2024-04-23] MEDS: FUROsemide 10 mg/mL SDV 4mL 40 MG IVP (17:00)
[2024-04-23] MEDS: digoxin 250 mcg/ml INJ 2 mL 500 MCG IVP (17:03)
[2024-04-23] MEDS: piperacillin-tazobactam 3.375 GM in sodium chloride 0.9% (plus) 50 ML IV (17:05)
[2024-04-23] MEDS: enoxaparin 120 mg/0.8 mL Syringe 110 MG SUBCUT (17:11)
--- NOTE | 2024-04-23 17:50 | PC.NURSE ---
Spoke with Dr Romero regarding cardizem dosing. Received order to not give 2nd dose of Digoxin 500mcg IVP and to not give first dose of PO cardizem at this time. RBVO
--- NOTE | 2024-04-23 18:00 | PM.HP ---
Providers/Chief Complaint Admitting Physician: Leisa Romero MD Primary Care Provider: Tamara Guillaume APN Chief Complaint: SOB History of Present Illness Mo Van is a 79 year old male with PMH past medical history of CAD with prior stents, hypertension, diabetes , recently underwent TAVR at [facility] [[email or web address] 6 weeks ago. States he typically takes Lasix at home 20mg BID however has not taken any Lasix in at least 3 days as he has things to do without worrying about urinating all the time . Since the last 2-3 weeks he has been feeling short of breath, has increasing dyspnea, he is on supplemental 02 today. He has also had a sore throat and cough since surgery which he attributes to being intubated. He is concerned he has diverticulitis as he has had abdominal pain. nausea and diarrhea. No fever. He went to urgent care with above symptoms, and was noted to be tachycardic and hypotensive and therefore directed to the ER. here he was found to have A fob with RVR. He has no prior history of the same. Home medication list is not currently available, however i Do not see any beta blockers or rate control medications on PCP note from 02/2024. Review of Systems General: Reports: 10 or more systems reviewed and unremarkable except in HPI and below Const: Denies: fever(s), chills or body aches Eyes: Denies: change in vision, blurry vision or photophobia ENMT: Reports: hoarseness; Denies: throat pain, enlarged tonsils, odynophagia or nasal congestion Card: Denies: chest pain, palpitations, irregular heart rhythm, edema, swelling of feet/ankles, lightheadedness, pre-syncope, dyspnea on exertion or orthopnea Resp: Denies: dyspnea, productive cough, non-productive cough, wheezing, stridor, pain on inspiration, change in phlegm color, hemoptysis or chest congestion GI: Denies: abdominal pain, nausea, vomiting, hematemesis, coffee ground emesis, dysphagia, heartburn, diarrhea, constipation, GI cramping, change in stool character, hematochezia or melena : Denies: flank pain, dysuria, urinary frequency, urinary urgency, urinary hesitancy or hematuria Musc: Denies: neck pain, back pain, extremity pain, joint swelling, joint warmth or deformity Neuro: Denies: headache(s), numbness in extremities, weakness in extremities, sensory changes, difficulty walking, frequent falls, dizziness, vertigo, behavioral changes, Slurred speech present or seizure-like activity Psych: Denies: anxiety, depression, suicidal ideation or homicidal ideation Endo: Denies: polyuria, polydipsia, tired all the time, cold intolerance or hot flashes Sujit/Lymph: Denies: easy bruising or easy bleeding Medications/Allergies Home Medications Medication Instructions Recorded Confirmed Last Taken Type diabetic shoes #1 ea 10/18/20 04/23/24 Unknown Rx nitroglycerin 400 mcg/spray 1 spray translingual Q5M PRN chest 11/14/20 04/23/24 11/17/23 21:00 Rx translingual pain #4.9 grams Diabetic shoes with inserts #1 ea 12/02/21 04/23/24 Unknown Rx CPAP machine and supplies #1 ea 02/10/22 04/23/24 Unknown Rx blood sugar diagnostic (OneTouch #50 ea 02/10/22 04/23/24 Unknown Rx Ultra Test strips) blood-glucose meter (OneTouch #1 ea 02/10/22 04/23/24 Unknown Rx Ultra2 Meter kit) Diabetic Shoes with 3 Insoles #1 ea 04/23/22 04/23/24 Unknown Rx oxycodone-acetaminophen 5 mg-325 1 tab PO BID PRN Pain 05/31/22 04/23/24 04/21/24 History mg tablet pantoprazole 40 mg tablet,delayed 40 mg PO BID #60 tabs 09/10/22 04/23/24 04/23/24 Rx release (Protonix) Diabetic shoes #1 ea 10/29/23 04/23/24 Unknown Rx diabetic shoes with 3 inserts #1 ea 11/03/23 04/23/24 Unknown Rx aspirin 81 mg tablet,delayed 81 mg PO DAILY #90 tabs 11/18/23 04/23/24 04/23/24 Rx release cholecalciferol (vitamin D3) 50 50 mcg PO DAILY #1 cap 12/09/23 04/23/24 04/23/24 Rx mcg (2,000 unit) capsule chlorhexidine gluconate 0.12 % 15 ml buccal BID #473 mL 02/25/24 04/23/24 04/23/24 Rx mouthwash (Peridex) furosemide 20 mg tablet 20 mg PO QAM PRN edema #90 tabs 02/25/24 04/23/24 04/21/24 Rx gabapentin 800 mg tablet 800 mg PO TID #270 tabs 02/25/24 04/23/24 04/23/24 Rx levothyroxine 200 mcg tablet 200 mcg PO DAILY #90 tabs 02/25/24 04/23/24 04/22/24 Rx potassium chloride 10 mEq 10 meq PO QDAY PRN with fluid pill 02/25/24 04/23/24 04/21/24 Rx tablet,extended release (Klor-Con) #90 tabs valsartan 80 mg tablet (Diovan) 80 mg PO DAILY #90 tabs 02/25/24 04/23/24 04/23/24 Rx metformin 500 mg tablet,extended 500 mg PO BID 04/23/24 04/23/24 04/23/24 History release 24 hr spironolactone 25 mg tablet 25 mg PO DAILY 04/23/24 04/23/24 04/23/24 History (Aldactone) Allergies Allergy/AdvReac Type Severity Reaction Status Date / Time No Known Allergies Allergy Verified 04/23/24 16:34 PFSH Acute PFSH: Medical History Hammertoe, bilateral Aortic stenosis Tubular adenoma of colon Helicobacter pylori gastritis Diabetes mellitus with hyperglycemia, without long-term current use of insulin Umbilical hernia Chest pain at rest Allergic rhinitis due to allergen Bilateral hearing loss due to cerumen impaction Dizziness and giddiness DDD (degenerative disc disease), lumbar Diverticula, colon Dependence on nocturnal oxygen therapy Osteoarthritis, knee DM autonomic neuropathy GREG on CPAP BPH loc w urin obs/LUTS Good response and durably so to dual medical therapy of FINASTERIDE/TAMSULOSIN (single dose) Chronic prostatitis On self treatment with CIPROFLOXACIN. Sporadic treatment required. Arteriosclerosis of coronary artery Urinary hesitancy Pain in thoracic spine at multiple sites Vitamin D insufficiency Dyslipidemia Adult onset hypothyroidism CAD (coronary artery disease) GERD (gastroesophageal reflux disease) Essential (primary) hypertension Surgical History History of oral surgery Removal oral extraction 02/02/24 in [place], [place] History of aortic valve replacement 02/03/24 at [facility] in [place], [place] History of angiography With stent placement History of appendectomy History of carotid artery disease surgery right bilateral 2008 History of cataract surgery right and left History of cholecystectomy History of hernia repair Left H/O rectal polypectomy History of surgery on arm right skin graft age 17 History of surgical amputation of finger of right hand age 17 History of colonoscopy 2017 repeat in 3 years Family History Mother Cancer Father CAD (coronary artery disease) Stroke Denies family history of Bleeding disorder Social History Smoking and tobacco/nicotine status: unknown if used tobacco/nicotine Second hand smoke exposure: No Alcohol intake: never Substance/Drug Use: never Adopted: No Caregiver/support person: No Lives independently: Yes Household members: spouse Housing: House Marital status: service: No Current occupational status: employed and retired Do you think of yourself as: Straight/Heterosexual Current gender identity: Male Vitals/I&O/Wt Last Vital Signs Temp 98.5 F 04/23/24 19:34 Pulse 137 H 04/23/24 19:34 Resp 19 H 04/23/24 19:34 BP 116/82 04/23/24 19:34 Pulse Ox 93 04/23/24 19:34 O2 Del Method Room Air 04/23/24 19:34 04/23/24 04/23/24 04/23/24 06:59 14:59 22:59 Intake Total 0.667 / 0.667 1237.070 / 1237.737 Output Total 800 / 800 Balance 0.667 / 0.667 437.070 / 437.737 Weight last 48 hrs Weight 122.98 kg Weight 121.109 kg Physical Exam Narrative: General: No acute distress, AO x3 HEENT: PERRLA, pupils bilaterally equal and reactive, pallors not present Chest: crackles to auscultation B/L CVS: S1-S2 regular, no murmurs, no tachycardia, no gallops, no rubs Abdomen: Soft, nontender, no organomegaly, bowel sounds present Neuro: No focal deficits, no facial deformity, AO x3, power 5/5 in all limbs Data 04/23/24 14:05 04/23/24 14:05 A&P Assessment and plan (1) Atrial fibrillation with RVR: Patient with recent h/o TAVR p/w new onset A fib with RVR No prior history of the same Started initially on cardizem gtt without improvemnet, now switched to amiodarone infusion after 150mg bolus over 10 min. Baseline troponin at 42, pending 2 hr and 6 hr trend, denies any chest pain Check echocardiogram given recent h/o valvular surgery Started on a/c with lovenox 1mg/kg sc q12h, planned transition to DOAC closer to discharge cycle troponin at 2 hrs and 6 hrs (2) Heart failure: Acute on chronic diatsolic CHF with preserved EF likely precipitated by non complainec with Lasix Lasix 40mg iv now Monitor I/O, kidney function patient refuses placement of Ledesma- encourage dto use urinal or bedside commode to permit accurate measurement (3) Adult onset hypothyroidism: check TSH continue levothyroxine (4) Abdominal pain: reports abdominal pain, nausea and vomiting states pain similar to prior episodes of diverticulitis Will perfrom CT abd/ pelvis mepiric Zosyn until resulst available check C diff PCR from stool Attestations Medical Necessity Statement*: > 2 midnight asmission anticipated Coding Level of Care Code Acute Code for Chg Fwd High MDM includes number and complexity of problems actively addressed during encounter, amount and/or complexity of data reviewed/ordered and described risk of complication, morbidity or mortality of management as documented Diagnoses Atrial fibrillation with RVR I48.91 Heart failure I50.9 Adult onset hypothyroidism E03.8 Abdominal pain R10.9
[2024-04-23 18:06] LABS: Glucose Point of Care 131 mg/dL (70-110)
[2024-04-23 19:28] LABS: Glucose Point of Care 205 mg/dL (70-110)
[2024-04-23] MEDS: benzonatate 100 mg Capsule PO (19:58)
--- NOTE | 2024-04-23 20:29 | ECG_ITS ---
[facility] Test Date: 2024-04-23 Pat Name: Mo Van Department: Room: 104 Gender: Male Curing Room Supervisor: : 1945 Requested By: Brain Beltran Order Number: [id number] Selin MD: Seng Villela M.D. Measurements Intervals [place] Rate: 136 P: 0 MA: 0 QRS: 138 QRSD: 117 T: -46 QT: 308 QTc: 463 Interpretive Statements ATRIAL FLUTTER/TACHYCARDIA WITH RAPID VENTRICULAR RESPONSE PROBABLE INFERIOR MYOCARDIAL INFARCTION , OF INDETERMINATE AGE [35 ms Q WAVE IN II/aVF] Compared to ECG 04/23/2024 14:59:20 No significant changes Electronically Signed On 04-24-2024 16:13:43 CDT by Seng Villela M.D. [id number]
[2024-04-23 21:19] LABS: Troponin 5 6HR 44.24 ng/L (0-15); Troponin 5 6HR Delta 2.24 ng/L (0-12)
[2024-04-23] MEDS: dilTIAZem 30 mg Tablet PO (21:30)
[2024-04-24] VITALS (69 sets, daily range): BP systolic 86–152; BP diastolic 36–82; PULSE 59–142; RESP 7–30; TEMP 36.5–37.9; O2SAT 84–97
[2024-04-24] MEDS: piperacillin-tazobactam 3.375 GM in sodium chloride 0.9% (plus) 50 ML IV ×3 (01:48→17:19)
[2024-04-24] MEDS: enoxaparin 120 mg/0.8 mL Syringe 110 MG SUBCUT (04:54)
[2024-04-24] MEDS: dilTIAZem 30 mg Tablet PO ×2 (04:54→10:50)
[2024-04-24 05:43] LABS: Basophils % 0.4 %; Eosinophils # 0.1 10^3/uL (0.0-0.8); Eosinophils % 1.1 %; Hematocrit 46.2 % (37-53); Lymphocytes # 1.7 10^3/uL (0.8-4.8); Lymphocytes % 18.1 %; Mean Corpuscular HGB Conc 31.6 g/dL (30-55); Mean Corpuscular Hemoglobin 29.9 pg (27-33); Mean Corpuscular Volume 94.5 fl (82-101); Mean Platelet Volume 9.2 fL (7.4-10.4); Monocytes # 0.7 10^3/uL (0.2-0.9); Monocytes % 7.2 %; Neutrophils # 6.64 10^3/uL (1.8-7.7); Neutrophils % 72.9 %; Nucleated Red Blood Cells % 0 %; Platelet Count 251 10^3/cmm (157-399); Red Blood Count 4.89 10^6/uL (3.85-5.65); Red Cell Distribution Width 13.2 % (12.1-15.1); White Blood Count 9.12 10^3/uL (3.29-11.43)
--- NOTE | 2024-04-24 06:00 | USCV_ITS ---
Mo Van Age: 79 Gender: M : 1945 Exam Date: 04/24/2024 15:52 Ordering Phys: Leisa Romero MD Technologist: Brian Roy Exam Location: [facility] Indication: new onset a fib BP: 114 / 82 HR: 61 Rhythm: Sinus Technical Quality: Adequate MEASUREMENTS (Male / Female) Normal Values 2D ECHO LV Diastolic Diameter PLAX 4.4 cm 4.2 - 5.9 / 3.9 - 5.3 cm IVS Diastolic Thickness 1.3 cm 0.6 - 1.0 / 0.6 - 0.9 cm IVS Systolic Thickness 1.5 cm LVPW Diastolic Thickness 1.4 cm 0.6 - 1.0 / 0.6 - 0.9 cm LVPW Systolic Thickness 1.9 cm LV Ejection Fraction 2D Teich 60.8 % LV Ejection Fraction MOD 4C 66.5 % LV Ejection Fraction MOD 2C 74.3 % LV Ejection Fraction 2C AL 75.5 % LA Diameter 4.4 cm RA Systolic Volume 4C AL 68.6 ml RA Systolic Volume 4C MOD 69.8 ml LA Sys Volume AL 86.2 cm cubed LA Sys Volume Index AL 34.6 cm cubed/m squared IVC Diameter 2.2 cm DOPPLER AV Peak Velocity 163.0 cm/s LVOT Peak Velocity 115.0 cm/s MV Peak Velocity 81.0 cm/s MV Area PHT 4.1 cm squared Mitral E to A Ratio 1.4 TR Peak Velocity 231.0 cm/s TR Peak Gradient 21.3 mmHg TR Mean Velocity 186.0 cm/s TR Mean Gradient 14.5 mmHg TR Velocity Time Integral 67.0 cm FINDINGS Left Ventricle Normal left ventricular size, systolic function, with no regional wall motion abnormalities. Mild concentric LVH. Estimated LVEF 65%. Right Ventricle Normal right ventricular size and systolic function. Right Atrium Normal right atrial size. Left Atrium Mildly dilated left atrium. Mitral Valve Thickened mitral valve. Trace mitral valve regurgitation. Aortic Valve Thickened aortic valve. No paravalvular (TAVR) leak No aortic stenosis. Tricuspid Valve Structurally normal tricuspid valve. Pulmonary arterial systolic pressure normal, 27 mmHg Pulmonic Valve Pulmonic valve not well visualized. Trace regurgitation Pericardium No pericardial effusion. Aorta Normal size aortic root and proximal ascending aorta. IVC Mildly dilated, normal respiratory changes. CONCLUSIONS Normal left ventricle function. Mild LVH. Estimated LVEF normal 65%. No significant valvular abnormality noted. Normal right heart and pulmonary pressures. Seng Villela MD (Electronically Signed) Final Date: 24 April 2024 17:32 Amended: 24 April 2024 17:51 C
[2024-04-24] MEDS: levothyroxine 200 mcg Tablet PO (06:03)
[2024-04-24 06:10] LABS: Alanine Aminotransferase 22 U/L (0-41); Albumin Level 3.6 g/dL (3.5-5.2); Alkaline Phosphatase 78 U/L (40-130); Anion Gap 16.3 (5-19); Aspartate Amino Transferase 18 U/L (0-40); Blood Urea Nitrogen 23 mg/dL (8-23); Carbon Dioxide 25 mmol/L (22-29); Chloride 101 mmol/L (98-107); Creatinine Clr Calc Pharmacy 74.5608; Globulin 3.5 g/dL (1.3-4.6); Glucose 161 mg/dL (65-115); Osmolality Calculated 293 mOsm/kg (285-295); Potassium 4.3 mmol/L (3.5-5.1); Sodium 138 mmol/L (136-145); Total Bilirubin 0.6 mg/dL (0.15-1.2); Total Protein 7.1 g/dL (6.6-8.7)
[2024-04-24 06:11] LABS: Glucose Point of Care 156 mg/dL (70-110)
--- NOTE | 2024-04-24 07:41 | PC.NURSE ---
Patient HR continuing to run 135-145 at 0230. Night hospitalist was notified. no new orders received.
[2024-04-24] MEDS: insulin lispro 100 unit/1 mL SUBCUT ×2 (08:52→21:44)
[2024-04-24] MEDS: FUROsemide 10 mg/mL SDV 4mL 40 MG IVP (08:53)
[2024-04-24] MEDS: aspirin 81 mg EC Tablet PO (08:53)
[2024-04-24] MEDS: gabapentin 400 mg Capsule 800 MG PO ×3 (09:31→21:44)
[2024-04-24 11:43] LABS: Glucose Point of Care 149 mg/dL (70-110)
--- NOTE | 2024-04-24 11:43 | PC.NURSE ---
Provider is notified of heart rate. Ordered dig 250 mcg once now. Order entered.
[2024-04-24] MEDS: digoxin 250 mcg/ml INJ 2 mL IVP (11:55)
--- NOTE | 2024-04-24 12:57 | P.CONIM_ITS ---
Providers/Reason For Consult 2 Consulting Physician/Specialty*: Cardiology Reason for Consult*: Atrial fibrillation/atrial flutter Requesting Physician: Dr. Romero Attending Physician: Leisa Romero MD Primary Care Provider: Tamara Guillaume APN History of Present Illness History of Present Illness Mo Van is a 79 year old male with a significant cardiac history including coronary disease, previous multiple stents and recent TAVR around 2 months ago at [facility]. He was doing fairly reasonable after the TAVR procedure until about 2 weeks ago when he started having any shortness of air which is which has been getting worse. Intermittent spells of dizziness and weakness is generalized. No chest pain or shortness of air has happened at rest as well as on minimal exertion. He also felt at times heart racing. In ER on admission he found to be in tachycardic atrial fibrillation fibrillation/atrial flutter heart rate up to 140s. Since admission he has been managed with digoxin, Cardizem as well as an on amiodarone IV infusion. His heart rate has not slowed down and he is remains in regular tachycardia with likely underlying rhythm is a flutter. For last 1 hour his blood pressure is running low with systolic less than 100. Patient is feeling lethargic. Plan is to moving to cardiac ICU with an intention to cardiovert him with synchronized cardioversion shock. Review of Systems 2 Narrative: Detailed 10 point systemic review unremarkable except for as mentioned above in the history of present illness. Medications/Allergies Home Medications Medication Instructions Recorded Confirmed Last Taken Type diabetic shoes #1 ea 10/18/20 04/23/24 Unknown Rx nitroglycerin 400 mcg/spray 1 spray translingual Q5M PRN chest 11/14/20 04/23/24 11/17/23 21:00 Rx translingual pain #4.9 grams Diabetic shoes with inserts #1 ea 12/02/21 04/23/24 Unknown Rx CPAP machine and supplies #1 ea 02/10/22 04/23/24 Unknown Rx blood sugar diagnostic (OneTouch #50 ea 02/10/22 04/23/24 Unknown Rx Ultra Test strips) blood-glucose meter (OneTouch #1 ea 02/10/22 04/23/24 Unknown Rx Ultra2 Meter kit) Diabetic Shoes with 3 Insoles #1 ea 04/23/22 04/23/24 Unknown Rx oxycodone-acetaminophen 5 mg-325 1 tab PO BID PRN Pain 05/31/22 04/23/24 04/21/24 History mg tablet pantoprazole 40 mg tablet,delayed 40 mg PO BID #60 tabs 09/10/22 04/23/24 04/23/24 Rx release (Protonix) Diabetic shoes #1 ea 10/29/23 04/23/24 Unknown Rx diabetic shoes with 3 inserts #1 ea 11/03/23 04/23/24 Unknown Rx aspirin 81 mg tablet,delayed 81 mg PO DAILY #90 tabs 11/18/23 04/23/24 04/23/24 Rx release cholecalciferol (vitamin D3) 50 50 mcg PO DAILY #1 cap 12/09/23 04/23/24 04/23/24 Rx mcg (2,000 unit) capsule chlorhexidine gluconate 0.12 % 15 ml buccal BID #473 mL 02/25/24 04/23/24 04/23/24 Rx mouthwash (Peridex) furosemide 20 mg tablet 20 mg PO QAM PRN edema #90 tabs 02/25/24 04/23/24 04/21/24 Rx gabapentin 800 mg tablet 800 mg PO TID #270 tabs 02/25/24 04/23/24 04/23/24 Rx levothyroxine 200 mcg tablet 200 mcg PO DAILY #90 tabs 02/25/24 04/23/24 04/22/24 Rx potassium chloride 10 mEq 10 meq PO QDAY PRN with fluid pill 02/25/24 04/23/24 04/21/24 Rx tablet,extended release (Klor-Con) #90 tabs valsartan 80 mg tablet (Diovan) 80 mg PO DAILY #90 tabs 02/25/24 04/23/24 04/23/24 Rx metformin 500 mg tablet,extended 500 mg PO BID 04/23/24 04/23/24 04/23/24 History release 24 hr spironolactone 25 mg tablet 25 mg PO DAILY 04/23/24 04/23/24 04/23/24 History (Aldactone) Allergies Allergy/AdvReac Type Severity Reaction Status Date / Time No Known Allergies Allergy Verified 04/23/24 16:34 Current Medications Generic Name Dose Route Start Last Admin Trade Name Freq PRN Reason Stop Dose Admin Aspirin 81 mg 04/24/24 09:00 04/24/24 08:53 Aspirin 81 Mg Ec Tablet PO 81 mg DAILY PARISH Administration Benzonatate 100 mg 04/23/24 16:24 04/23/24 19:58 Benzonatate 100 Mg Capsule PO 100 mg Q8H PRN Administration coughing Enoxaparin Sodium 110 mg 04/23/24 16:30 04/24/24 04:54 Enoxaparin 120 Mg/0.8 Ml Syringe SUBCUT 110 mg Q12H PARISH Administration Furosemide 40 mg 04/24/24 09:00 04/24/24 08:53 Furosemide 10 Mg/Ml Sdv 4ml IVP 40 mg DAILY PARISH Administration Gabapentin 800 mg 04/24/24 09:00 04/24/24 09:31 Gabapentin 400 Mg Capsule PO 800 mg TID PARISH Administration Amiodarone HCl/Dextrose 360 mg in 200 mls @ 0 mls/hr 04/23/24 15:34 04/24/24 09:30 Nexterone IV 0.5 mg/min .Q0M PARISH 16.67 mls/hr Administration Protocol Per Protocol Piperacillin Sod/Tazobactam 50 mls @ 12.5 mls/hr 04/23/24 17:00 04/24/24 08:53 Sod 3.375 gm/ Sodium Chloride IV 12.5 mls/hr Q8H PARISH Administration Insulin Human Lispro 0 unit 04/24/24 08:00 04/24/24 12:51 Insulin Lispro 100 Unit/1 Ml SUBCUT Not Given WM&BEDTIME PARISH Protocol Levothyroxine Sodium 200 mcg 04/24/24 06:30 04/24/24 06:03 Levothyroxine 200 Mcg Tablet PO 200 mcg 0630 PARISH Administration PFSH Acute 2 PFSH: Medical History Hammertoe, bilateral Aortic stenosis Tubular adenoma of colon Helicobacter pylori gastritis Diabetes mellitus with hyperglycemia, without long-term current use of insulin Umbilical hernia Chest pain at rest Allergic rhinitis due to allergen Bilateral hearing loss due to cerumen impaction Dizziness and giddiness DDD (degenerative disc disease), lumbar Diverticula, colon Dependence on nocturnal oxygen therapy Osteoarthritis, knee DM autonomic neuropathy GREG on CPAP BPH loc w urin obs/LUTS Good response and durably so to dual medical therapy of FINASTERIDE/TAMSULOSIN (single dose) Chronic prostatitis On self treatment with CIPROFLOXACIN. Sporadic treatment required. Arteriosclerosis of coronary artery Urinary hesitancy Pain in thoracic spine at multiple sites Vitamin D insufficiency Dyslipidemia Adult onset hypothyroidism CAD (coronary artery disease) GERD (gastroesophageal reflux disease) Essential (primary) hypertension Surgical History History of oral surgery Removal oral extraction 02/02/24 in [place], [place] History of aortic valve replacement 02/03/24 at [place], [place] History of angiography With stent placement History of appendectomy History of carotid artery disease surgery right bilateral 2007 History of cataract surgery right and left History of cholecystectomy History of hernia repair Left H/O rectal polypectomy History of surgery on arm right skin graft age 17 History of surgical amputation of finger of right hand age 17 History of colonoscopy 2017 repeat in 3 years Family History Mother Cancer Father CAD (coronary artery disease) Stroke Denies family history of Bleeding disorder Social History Smoking and tobacco/nicotine status: unknown if used tobacco/nicotine Second hand smoke exposure: No Alcohol intake: never Substance/Drug Use: never Adopted: No Caregiver/support person: No Lives independently: Yes Household members: spouse Housing: House Marital status: service: No Current occupational status: employed and retired Do you think of yourself as: Straight/Heterosexual Current gender identity: Male Vitals/I&O/Wt Last Vital Signs Temp 97.8 F 04/24/24 11:49 Pulse 138 H 04/24/24 11:49 Resp 20 H 04/24/24 11:49 BP 98/69 04/24/24 11:49 Pulse Ox 91 04/24/24 08:00 O2 Del Method Nasal Cannula 04/24/24 08:00 FiO2 30 04/24/24 01:09 04/23/24 04/24/24 04/24/24 22:59 06:59 14:59 Intake Total 1237.070 / 1237.737 550 / 1787.737 553.928 / 553.928 Output Total 800 / 800 850 / 1650 1175 / 1175 Balance 437.070 / 437.737 -300 / 137.737 -621.072 / -621.072 Weight last 48 hrs Weight 260 lb Weight 271 lb 2 oz Weight 267 lb Physical Exam 2 Narrative: Patient is lying in the bed. Overall appears lethargic. Not in any respiratory distress. Vitals revealed blood pressure 98/71, pulse 140/min. O2 saturation 94% on 2 L nasal cannula. Const: OTHER: Unremarkable. HENMT: OTHER: Normal. No JVD. Neck/C-Spine: COMMON NORMALS: full ROM, supple and no JVD (Tachycardia, atrial flutter/A-fib. Heart rate 140s) Resp: OTHER: Good air entry bilaterally. Minimal rales at the bases more on the left side. Cardio: COMMON NORMALS: no JVD (Tachycardia, atrial flutter/A-fib. Heart rate 140s), S1 normal heart sound present and S2 normal heart sound present HEART SOUNDS: S1 normal heart sound present and S2 normal heart sound present O THER: Mild systolic murmur at the left lower sternal border and apex. GI: OTHER: Abdomen obese however soft nontender. Bowel sounds audible. Extremity: OTHER: Trace bilateral lower extremity edema. Extremities unremarkable. Neuro: OTHER: Grossly intact Skin: OTHER: Warm and dry skin. Data 04/24/24 04:55 04/24/24 04:55 A&P Assessment and plan (1) Atrial fibrillation with RVR: Plan 79-year-old male patient with significant cardiac history recent TAVR, now in tachycardia with atrial flutter/A-fib. No response to with the medication overnight. Clinically no angina or heart failure symptoms. For last 1-2 over his blood pressure is been on the lower side systolic between 90 - 100 Considering his overall cardiac status and more so with the low blood pressure and no response to the medical treatment so far, plan to convert his rhythm using DC synchronized cardiac shock. I explained the procedure to the patient and his . They understood the procedure risk and benefits. They agreed with the treatment using synchronized DC cardioversion. Plan to move the patient to the ICU for the procedure. Coding Level of Care Code 70808 Diagnoses Atrial fibrillation with RVR I48.91
[2024-04-24] MEDS: ondansetron 2 mg/ML SDV 2 mL 4 MG IVP (13:00)
[2024-04-24] MEDS: sodium chloride 0.9% 250 ML IV (13:01)
--- NOTE | 2024-04-24 13:46 | PC.NURSE ---
report was called to ISABEL Drew in ICU. Patient and family are aware of the transfer.
--- NOTE | 2024-04-24 14:14 | ANES.PREANE2 ---
Pre-Anesthetic Assessment Height/Weight: Height 1.83 m Weight 117.934 kg Temp Pulse Resp BP Pulse Ox O2 Del Method O2 Flow Rate 97.8 F 139 H 25 H 114/82 95 Nasal Cannula 2 04/24/24 11:49 04/24/24 13:11 04/24/24 13:11 04/24/24 13:11 04/24/24 13:11 04/24/24 13:11 04/24/24 13:11 FiO2 30 04/24/24 01:09 Social No alcohol and No tobacco Exam alert and oriented x 3 irreg irreg rhythm. mild cough Airway Submandibular: within normal limits Cervical ROM: within normal limits Mallampati: Class I Dentition: false Pulmonary Cough CV/HEM Atrial Fibrillation, Arrythmia and Hypertension s/p tavr with most recent echo post TAVR EF 60% None reported Hepatic None reported GI None reported Metabolic Diabetes Mellitus and Morbid Obesity Neuropsych Cerebrovascular Accident no deficit Anesthetic Plan ASA status: 3E Anesthesia: MAC Risk of > 500 ml blood loss (7ml/kg in children): No Medications/Allergies Home Medications Medication Instructions Recorded Confirmed Last Taken Type diabetic shoes #1 ea 10/18/20 04/23/24 Unknown Rx nitroglycerin 400 mcg/spray 1 spray translingual Q5M PRN chest 11/14/20 04/23/24 11/17/23 21:00 Rx translingual pain #4.9 grams Diabetic shoes with inserts #1 ea 12/02/21 04/23/24 Unknown Rx CPAP machine and supplies #1 ea 02/10/22 04/23/24 Unknown Rx blood sugar diagnostic (OneTouch #50 ea 02/10/22 04/23/24 Unknown Rx Ultra Test strips) blood-glucose meter (OneTouch #1 ea 02/10/22 04/23/24 Unknown Rx Ultra2 Meter kit) Diabetic Shoes with 3 Insoles #1 ea 04/23/22 04/23/24 Unknown Rx oxycodone-acetaminophen 5 mg-325 1 tab PO BID PRN Pain 05/31/22 04/23/24 04/21/24 History mg tablet pantoprazole 40 mg tablet,delayed 40 mg PO BID #60 tabs 09/10/22 04/23/24 04/23/24 Rx release (Protonix) Diabetic shoes #1 ea 10/29/23 04/23/24 Unknown Rx diabetic shoes with 3 inserts #1 ea 11/03/23 04/23/24 Unknown Rx aspirin 81 mg tablet,delayed 81 mg PO DAILY #90 tabs 11/18/23 04/23/24 04/23/24 Rx release cholecalciferol (vitamin D3) 50 50 mcg PO DAILY #1 cap 12/09/23 04/23/24 04/23/24 Rx mcg (2,000 unit) capsule chlorhexidine gluconate 0.12 % 15 ml buccal BID #473 mL 02/25/24 04/23/24 04/23/24 Rx mouthwash (Peridex) furosemide 20 mg tablet 20 mg PO QAM PRN edema #90 tabs 02/25/24 04/23/24 04/21/24 Rx gabapentin 800 mg tablet 800 mg PO TID #270 tabs 02/25/24 04/23/24 04/23/24 Rx levothyroxine 200 mcg tablet 200 mcg PO DAILY #90 tabs 02/25/24 04/23/24 04/22/24 Rx potassium chloride 10 mEq 10 meq PO QDAY PRN with fluid pill 02/25/24 04/23/24 04/21/24 Rx tablet,extended release (Klor-Con) #90 tabs valsartan 80 mg tablet (Diovan) 80 mg PO DAILY #90 tabs 02/25/24 04/23/24 04/23/24 Rx metformin 500 mg tablet,extended 500 mg PO BID 04/23/24 04/23/24 04/23/24 History release 24 hr spironolactone 25 mg tablet 25 mg PO DAILY 04/23/24 04/23/24 04/23/24 History (Aldactone) Allergies Allergy/AdvReac Type Severity Reaction Status Date / Time No Known Allergies Allergy Verified 04/23/24 16:34 Current Medications Generic Name Dose Route Start Last Admin Trade Name Freq PRN Reason Stop Dose Admin Aspirin 81 mg 04/24/24 09:00 04/24/24 08:53 Aspirin 81 Mg Ec Tablet PO 81 mg DAILY PARISH Administration Benzonatate 100 mg 04/23/24 16:24 04/23/24 19:58 Benzonatate 100 Mg Capsule PO 100 mg Q8H PRN Administration coughing Enoxaparin Sodium 110 mg 04/23/24 16:30 04/24/24 04:54 Enoxaparin 120 Mg/0.8 Ml Syringe SUBCUT 110 mg Q12H PARISH Administration Furosemide 40 mg 04/24/24 09:00 04/24/24 08:53 Furosemide 10 Mg/Ml Sdv 4ml IVP 40 mg DAILY PARISH Administration Gabapentin 800 mg 04/24/24 09:00 04/24/24 09:31 Gabapentin 400 Mg Capsule PO 800 mg TID PARISH Administration Amiodarone HCl/Dextrose 360 mg in 200 mls @ 0 mls/hr 04/23/24 15:34 04/24/24 09:30 Nexterone IV 0.5 mg/min .Q0M PARISH 16.67 mls/hr Administration Protocol Per Protocol Piperacillin Sod/Tazobactam 50 mls @ 12.5 mls/hr 04/23/24 17:00 04/24/24 14:08 Sod 3.375 gm/ Sodium Chloride IV Infused Q8H PARISH Infusion Insulin Human Lispro 0 unit 04/24/24 08:00 04/24/24 12:51 Insulin Lispro 100 Unit/1 Ml SUBCUT Not Given WM&BEDTIME PARISH Protocol Levothyroxine Sodium 200 mcg 04/24/24 06:30 04/24/24 06:03 Levothyroxine 200 Mcg Tablet PO 200 mcg 0630 PARISH Administration PFSH Anesthesia Medical History Hammertoe, bilateral Aortic stenosis Tubular adenoma of colon Helicobacter pylori gastritis Diabetes mellitus with hyperglycemia, without long-term current use of insulin Umbilical hernia Chest pain at rest Allergic rhinitis due to allergen Bilateral hearing loss due to cerumen impaction Dizziness and giddiness DDD (degenerative disc disease), lumbar Diverticula, colon Dependence on nocturnal oxygen therapy Osteoarthritis, knee DM autonomic neuropathy GREG on CPAP BPH loc w urin obs/LUTS Good response and durably so to dual medical therapy of FINASTERIDE/TAMSULOSIN (single dose) Chronic prostatitis On self treatment with CIPROFLOXACIN. Sporadic treatment required. Arteriosclerosis of coronary artery Urinary hesitancy Pain in thoracic spine at multiple sites Vitamin D insufficiency Dyslipidemia Adult onset hypothyroidism CAD (coronary artery disease) GERD (gastroesophageal reflux disease) Essential (primary) hypertension Surgical History History of oral surgery Removal oral extraction 02/02/24 in [place], [place] History of aortic valve replacement 02/03/24 at [facility] in [place], [place] History of angiography With stent placement History of appendectomy History of carotid artery disease surgery right bilateral 2007 History of cataract surgery right and left History of cholecystectomy History of hernia repair Left H/O rectal polypectomy History of surgery on arm right skin graft age 17 History of surgical amputation of finger of right hand age 17 History of colonoscopy 2017 repeat in 3 years Family History Mother Cancer Father CAD (coronary artery disease) Stroke Denies family history of Bleeding disorder Social History Smoking and tobacco/nicotine status: unknown if used tobacco/nicotine Second hand smoke exposure: No Alcohol intake: never Substance/Drug Use: never Adopted: No Caregiver/support person: No Lives independently: Yes Household members: spouse Housing: House Marital status: service: No Current occupational status: employed and retired Do you think of yourself as: Straight/Heterosexual Current gender identity: Male Data Anesthesia 04/24/24 04:55 04/24/24 04:55 Short CBC 04/23/24 04/24/24 Range/Units 14:05 04:55 WBC 5.95 9.12 (3.29-11.43) 10^3/uL Hgb 15.00 14.60 (11.27-16.99) g/dL Hct 46.5 46.2 (37-53) % MCV 92.1 94.5 (82-101) fl Plt Count 288 251 (157-399) 10^3/cmm Neut % (Auto) 56.6 72.9 % Neut # (Auto) 3.37 6.64 (1.8-7.7) 10^3/uL BMP 04/23/24 04/24/24 14:05 04:55 Sodium 136 138 Potassium 4.0 4.3 Chloride 102 101 Carbon Dioxide 23 25 BUN 27 H 23 Creatinine 1.1 1.1 Glucose 149 H 161 H Calcium 9.3 9.0 Cardiac Enzymes 04/23/24 04/23/24 04/23/24 Range/Units 14:05 16:07 20:52 Troponin T Baseline 42 H (0-15) ng/L Troponin T 120 Minute 43.71 H (0-15) ng/L Delta Troponin T 1.71 (0-10) ABS# Troponin T Hi Sens 6Hr 44.24 H (0-15) ng/L Troponin T Hi Sens 6Hr Delta 2.24 (0-12) ng/L NT-Pro-B Natriuret Pep 1705 H (0-450) pg/mL Liver Function 04/23/24 04/24/24 Range/Units 14:05 04:55 Total Bilirubin 0.4 0.6 (0.15-1.2) mg/dL AST 16 18 (0-40) U/L ALT 18 22 (0-41) U/L Alkaline Phosphatase 80 78 (40-130) U/L Albumin 3.8 3.6 (3.5-5.2) g/dL Urine 04/23/24 Range/Units 15:36 Urine Color Yellow (Yellow) Urine Appearance Clear (CLEAR) Urine pH 5 (5-7) Ur Specific [place] 1.025 (1.005-1.030) Urine Protein Neg (Negative) Urine Glucose (UA) Norm (Normal) Urine Ketones Negative (Negative) Urine Nitrate Negative (Negative) Urine Bilirubin Neg (Negative) Ur Leukocyte Esterase Negative (Negative) Cardiac Studies: Echocardiogram 03/17/24 Sestamibi Stress Test (Cardiology) 06/02/22 Cardiac Event Monitor 11/26/22
--- NOTE | 2024-04-24 15:25 | PC.NURSE ---
Patient arrived to ICU room 4 at 1427 via wheelchair, at bedside, Regional Account Executive to room and Casie entered room, Patient educated once more on procedure. At 1450 shock delivered, patient convert to SB and then SR on monitor. Patient oxygen monitored at bedside. See chart for printed cardiac monitoring. Dr. Villela verbal order to pause amiodarone drip.
--- NOTE | 2024-04-24 16:03 | P.PN_ITS ---
Subjective 2 Subjective: moved from CSU to ICU today, Patient had continued to be in A-fib with RVR with heart rate in the 130s. He had started to complain of developing dizziness this afternoon and had soft blood pressure at 98/67 mmHg. With downtrending blood pressure and now symptomatic persisting A-fib, cardiology was consulted. Patient underwent cardioversion this afternoon, having received 100 J DC cardioversion. He is thereafter in sinus rhythm. Heart rate currently at 62 bpm. Blood pressure 114/82. Tolerated the procedure well. Medications: Reviewed: Yes Vitals/I&O/Wt Last Vital Signs Temp 97.8 F 04/24/24 11:49 Pulse 62 04/24/24 15:23 Resp 25 H 04/24/24 13:11 BP 114/82 04/24/24 13:11 Pulse Ox 93 04/24/24 15:23 O2 Del Method Nasal Cannula 04/24/24 15:23 O2 Flow Rate 5 04/24/24 15:23 FiO2 30 04/24/24 01:09 04/24/24 04/24/24 04/24/24 06:59 14:59 22:59 Intake Total 550 / 1787.737 944.780 / 944.780 Output Total 850 / 1650 1375 / 1375 Balance -300 / 137.737 -430.220 / -430.220 Weight last 48 hrs Weight 117.934 kg Weight 122.98 kg Weight 121.109 kg Physical Exam 2 Narrative: General: No acute distress, AO x3 HEENT: PERRLA, pupils bilaterally equal and reactive, pallors not present Chest: crackles to auscultation B/L CVS: S1-S2 regular, no murmurs, no tachycardia, no gallops, no rubs Abdomen: Soft, nontender, no organomegaly, bowel sounds present Neuro: No focal deficits, no facial deformity, AO x3, power 5/5 in all limbs Data 04/24/24 04:55 04/24/24 04:55 A&P Assessment and plan (1) Atrial fibrillation with RVR: Patient with recent h/o TAVR p/w new onset A fib with RVR No prior history of the same Patient did not have any improvement in spite of being on amiodarone infusion, Cardizem and having received digoxin loading dose. By the afternoon today he was starting to become symptomatic, complained of dizziness, blood pressure trending towards 98/67 mmHg. Heart rate had persisted to be in the 130s. Cardiology consulted, patient underwent cardioversion with 100 J, converted to sinus rhythm thereafter. Check echocardiogram given recent h/o valvular surgery Started on a/c with lovenox 1mg/kg sc q12h --> now being transitioned to Eliquis Baseline troponin at 42, no significant delta at 2 or 6 hours. (2) Heart failure: Acute on chronic diatsolic CHF with preserved EF likely precipitated by non complaince with Lasix Received Lasix 40 mg IV this morning, holding off on further doses due to soft blood pressures Monitor I/O, kidney function patient refuses placement of Ledesma- encourage to use urinal or bedside commode to permit accurate measurement (3) Adult onset hypothyroidism: check TSH continue levothyroxine (4) Pneumonia: Consolidation in the left upper lobe and left lower lobe versus atelectasis as picked up on CT of the chest abdomen and pelvis. Currently on piperacillin/tazobactam, add azithromycin 500 mg p.o. daily for atypical coverage. Check sputum culture and Gram stain , check blood culture (5) Abdominal pain: Now resolved. Continues to have intermittent diarrhea. Check C. difficile PCR. CT negative for diverticulitis or colitis. Plan DVT prophylaxis: Currently on Eliquis Full code Attestations 2 Medical Necessity Statement*: Status post cardioversion today for persistent symptomatic A-fib with RVR, close cardiac and renal monitoring Critical Care Time: The high probability of a clinically significant, sudden or life threatening deterioration of the patient's [cardiac, respiratory, ID] system(s) required my full and direct attention, intervention and personal management. The critical care time is as shown. This time is in addition to time spent performing any reported procedures but includes the following: [x] Data and vital sign review and interpretation [x] Patient assessment, examination and intervention [x] Documentation [x] Medication orders and management Critical Care Time (min): 60 Coding Level of Care Code Acute Code for Chg Fwd Diagnoses Atrial fibrillation with RVR I48.91 Heart failure I50.9 Adult onset hypothyroidism E03.8 Pneumonia J18.9 Abdominal pain R10.9
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
--- OUTSIDE RECORDS SUMMARY | 2024-04-24 16:48 | XMS_ITS | Patient Health Record ---
Author Name Unknown Organization [facility] Address [address] [place] [address] Support Name Relationship Address Phone Mo Van Guarantor Unknown [phone] Reason For Referral No Information Medications Medication SIG (Take, Route, Frequency, Duration) Notes Start Date End Date Status Thyroxine Thyroxine 12/23/2016 Active Finasteride 5 MG Oral Tablet Finasteride 5 MG Oral Tablet 12/24/2016 Active Ciprofloxacin 500 MG Oral Tablet Ciprofloxacin 500 MG Oral Tablet 12/23/2016 Active Gabapentin gabapentin 12/23/2016 Active glipiZIDE Glipizide 12/23/2016 Active Metformin Metformin 12/23/2016 Active Lisinopril Lisinopril 12/23/2016 Active Lasix Lasix 12/23/2016 Active tamsulosin tamsulosin 12/23/2016 Active Plan Of Treatment No Information
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
--- OUTSIDE RECORDS SUMMARY | 2024-04-24 16:48 | XMS_ITS | Patient Health Record ---
Author Name Unknown Organization [facility] Address [address] [place] [address] Support Name Relationship Address Phone Mo Van Guarantor Unknown [phone] Reason For Referral No Information Medications Medication SIG (Take, Route, Frequency, Duration) Notes Start Date End Date Status Ciprofloxacin 500 MG Oral Tablet Ciprofloxacin 500 MG Oral Tablet [facility]* 12/23/2016 Active Thyroxine Thyroxine *[facility]ord [facility] and Interaction Alerts* 12/23/2016 Active Finasteride 5 MG Oral Tablet Finasteride 5 MG Oral Tablet *[facility] and Interaction Alerts* 12/24/2016 Active tamsulosin tamsulosin *Reor andre from [facility] for [facility] and Interaction Alerts* 12/23/2016 Active Lasix Lasix *Pick strength-form from [facility] for [facility]* 12/23/2016 Active Lisinopril Lisinopril *Pick strength[facility] from [facility] for [facility]* 12/23/2016 Active Gabapentin gabapentin *Pick [facility] for [facility]* 12/23/2016 Active Metformin Metformin *Reord er from [facility] for [facility] and Interaction Alerts* 12/23/2016 Active glipiZIDE Glipizide *[facility]* 12/23/2016 Active Plan Of Treatment No Information
[2024-04-24] MEDS: apixaban 5 mg Tablet PO (17:19)
[2024-04-24 17:55] LABS: Glucose Point of Care 137 mg/dL (70-110)
--- NOTE | 2024-04-24 18:51 | PC.NURSE ---
Verbal order from Dr. Romero to restart Amiodarone drip at 0.5mg/min. And to hold Amio if heart rate is less than 55 BPM.
[2024-04-25] VITALS (41 sets, daily range): BP systolic 109–151; BP diastolic 49–74; PULSE 57–69; RESP 13–25; TEMP 36.3–37.3; O2SAT 85–99; BMI 36.3
[2024-04-25] MEDS: vancomycin 1,250 MG/250 ML PIGGYBACK 250 MG IV ×2 (00:01→11:03)
[2024-04-25] MEDS: piperacillin-tazobactam 3.375 GM in sodium chloride 0.9% (plus) 50 ML IV ×2 (02:22→08:33)
[2024-04-25 05:44] LABS: Glucose Point of Care 142 mg/dL (70-110)
[2024-04-25] MEDS: levothyroxine 200 mcg Tablet PO (06:22)
[2024-04-25 08:20] LABS: Glucose Point of Care 184 mg/dL (70-110)
[2024-04-25] MEDS: azithromycin 250 mg Tablet 500 MG PO (08:32)
[2024-04-25] MEDS: apixaban 5 mg Tablet PO ×2 (08:32→20:49)
[2024-04-25] MEDS: aspirin 81 mg EC Tablet PO (08:32)
[2024-04-25] MEDS: insulin lispro 100 unit/1 mL SUBCUT ×4 (08:32→20:49)
[2024-04-25] MEDS: gabapentin 400 mg Capsule 800 MG PO ×3 (08:32→20:49)
--- NOTE | 2024-04-25 09:53 | PM.PN ---
Subjective Subjective: Patient had cardioversion performed yesterday. No chest pain. Vitals/I&O/Wt Last Vital Signs Temp 97.8 F 04/25/24 08:30 Pulse 63 04/25/24 08:30 Resp 17 04/25/24 08:30 BP 131/58 04/25/24 08:30 Pulse Ox 93 04/25/24 08:30 O2 Del Method Nasal Cannula 04/25/24 08:30 O2 Flow Rate 4 04/25/24 08:30 FiO2 30 04/25/24 04:00 04/24/24 04/25/24 04/25/24 22:59 06:59 14:59 Intake Total 280 / 1224.780 495.873 / 1720.653 200 / 200 Output Total 250 / 1625 450 / 2075 Balance 30 / -400.220 45.873 / -354.347 200 / 200 Weight last 48 hrs Weight 267 lb 12.8 oz Weight 260 lb Weight 271 lb 2 oz Weight 267 lb Physical Exam Narrative: GENERAL: Patient is alert, awake and oriented x3. [] NECK: No jugular vein distension. [] HEENT: No cyanosis. No icterus. No pallor. [] HEART: Regular S1 and S2. No murmur, rub or gallop. [] LUNGS: Clear to auscultate bilaterally. [] CENTRAL NERVOUS SYSTEM: Grossly nonfocal. [] EXTREMITIES: Lower extremities with 1+ edema bilaterally. Data 04/26/24 05:32 04/26/24 05:32 Micro: Microbiology 04/24/24 16:27 Bacterial Antigens - Final Urine,Voided 04/24/24 19:08 Blood Culture - Preliminary Blood SPECIMEN COLLECTED 04/24/24 19:06 Blood Culture - Preliminary Blood SPECIMEN COLLECTED A&P Assessment and plan (1) Atrial fibrillation with RVR: Plan Patient is staying in sinus rhythm. Can stop amiodarone. Start metoprolol. Continue Eliquis 5 mg twice daily. Will do IV diuresis for today. Close I and Os. Close renal function monitoring. Can be discharged home tomorrow. Attestations Medical Necessity Statement*: Care expected to cross 2 midnights. Coding Level of Care Code Acute Code for [facility] Diagnoses Atrial fibrillation with RVR I48.91
--- NOTE | 2024-04-25 10:16 | PICC.NOTE ---
IMM Update pg 2 of IMM updated and reviewed w/ patient. Copy provided and copy dated, initialed and placed in chart.
[2024-04-25] MEDS: FUROsemide 10 mg/mL SDV 4mL 40 MG IVP (11:04)
--- NOTE | 2024-04-25 11:21 | PC.NURSE ---
Called patients and gave update.
--- NOTE | 2024-04-25 12:06 | PM.PN ---
Subjective Subjective: Patient is always groggy and lethargic however later end of the day around noon patient became more responsive and conversive No signs of stroke Blood sugar normal Currently on Eliquis Will discontinue amiodarone Transfer out of ICU to [facility] Gave 1 dose of Lasix, plan to discharge by tomorrow Vitals/I&O/Wt Last Vital Signs Temp 97.8 F 04/25/24 08:30 Pulse 66 04/25/24 10:00 Resp 20 H 04/25/24 10:00 BP 112/49 04/25/24 10:00 Pulse Ox 95 04/25/24 10:00 O2 Del Method Nasal Cannula 04/25/24 10:00 O2 Flow Rate 4 04/25/24 08:30 FiO2 30 04/25/24 04:00 04/24/24 04/25/24 04/25/24 22:59 06:59 14:59 Intake Total 280 / 1224.780 495.873 / 1720.653 544.463 / 544.463 Output Total 250 / 1625 450 / 2075 Balance 30 / -400.220 45.873 / -354.347 544.463 / 544.463 Weight last 48 hrs Weight 121.472 kg Weight 117.934 kg Weight 122.98 kg Weight 121.109 kg Physical Exam Narrative: Patient was lethargic Verbally redirectable Hemodynamically stable Sinus rhythm heart rate in 60s Blood pressure stable Signs of fluid overload present Pleasant cooperative Nonfocal neuroexam S1, S2 On 2 L nasal cannula Data 04/24/24 04:55 04/24/24 04:55 Micro: Microbiology 04/24/24 16:27 Bacterial Antigens - Final Urine,Voided 04/24/24 19:08 Blood Culture - Preliminary Blood SPECIMEN COLLECTED 04/24/24 19:06 Blood Culture - Preliminary Blood SPECIMEN COLLECTED A&P Assessment and plan (1) Essential (primary) hypertension: (2) Aortic stenosis: Qualifiers: Cardiac valve disease etiology: nonrheumatic Qualified Code(s): I35.0 - Nonrheumatic aortic (valve) stenosis (3) DM autonomic neuropathy: Qualifiers: Diabetes mellitus type: type 2 Qualified Code(s): E11.43 - Type 2 diabetes mellitus with diabetic autonomic (poly)neuropathy (4) GREG on CPAP: (5) Atrial fibrillation with RVR: (6) Atrial fibrillation status post cardioversion: Plan A-fib RVR Status post cardioversion 04/24 Successfully converted to sinus rhythm Continue Eliquis Patient's heart rate has been ranging around 66, discontinue amiodarone drip Transfer out of ICU to [facility] Diastolic CHF exacerbation Continue IV Lasix Plan to discharge by tomorrow Continue levothyroxine for hypothyroidism Discontinue vancomycin and Zosyn and switch to levofloxacin for pneumonia Cardiac diet DVT prophylaxis covered with Eliquis Full code Attestations Medical Necessity Statement*: Discharge tomorrow Diagnoses Essential (primary) hypertension I10 Nonrheumatic aortic valve stenosis I35.0 Cardiac valve disease etiology: nonrheumatic Diabetic autonomic neuropathy associated with type 2 diabetes mellitus E11.43 Diabetes mellitus type: type 2 GREG on CPAP G47.33; Z99.89 Atrial fibrillation with RVR I48.91 Atrial fibrillation status post cardioversion I48.91
[2024-04-25 12:10] LABS: Glucose Point of Care 200 mg/dL (70-110)
[2024-04-25] MEDS: levoFLOXacin 750 mg Tablet PO (14:00)
[2024-04-25 15:57] LABS: Basophils # 0.1 10^3/uL (0.0-0.1); Basophils % 0.7 %; Eosinophils # 0.3 10^3/uL (0.0-0.8); Hematocrit 45.6 % (37-53); Lymphocytes # 1.5 10^3/uL (0.8-4.8); Lymphocytes % 21.4 %; Mean Corpuscular HGB Conc 30.9 g/dL (30-55); Mean Corpuscular Hemoglobin 30.3 pg (27-33); Mean Corpuscular Volume 97.9 fl (82-101); Mean Platelet Volume 9.1 fL (7.4-10.4); Monocytes # 0.6 10^3/uL (0.2-0.9); Monocytes % 7.9 %; Neutrophils # 4.54 10^3/uL (1.8-7.7); Neutrophils % 65.6 %; Nucleated Red Blood Cells % 0 %; Platelet Count 206 10^3/cmm (157-399); Red Blood Count 4.66 10^6/uL (3.85-5.65); Red Cell Distribution Width 13.7 % (12.1-15.1); White Blood Count 6.93 10^3/uL (3.29-11.43)
--- NOTE | 2024-04-25 16:11 | PC.NURSE ---
Report called to medical surgical floor, patient to go to room 276-1.
[2024-04-25 16:13] LABS: Alanine Aminotransferase 20 U/L (0-41); Alkaline Phosphatase 75 U/L (40-130)
[2024-04-25] MEDS: metoprolol tartrate 25 mg Tablet PO (16:34)
--- NOTE | 2024-04-25 16:52 | PC.NURSE ---
Patient transferred to Medical surgical floor via wheelchair on 4L NC, All belongings with patient. Patient had no requests or complaints at the time of transfer.
[2024-04-25 17:11] LABS: Glucose Point of Care 146 mg/dL (70-110)
[2024-04-25 18:02] LABS: Blood Urea Nitrogen 22 mg/dL (8-23); Chloride 98 mmol/L (98-107); Creatinine Clr Calc Pharmacy 75.6865; Total Bilirubin 0.6 mg/dL (0.15-1.2); Total Protein 6.9 g/dL (6.6-8.7)
[2024-04-25 19:01] LABS: Calcium 8.3 mg/dL (8.5-10.5); Carbon Dioxide 19 mmol/L (22-29); Glucose 138 mg/dL (65-115); Osmolality Calculated 282 mOsm/kg (285-295); Sodium 133 mmol/L (136-145)
[2024-04-25 19:05] LABS: Albumin Level 3.4 g/dL (3.5-5.2); Anion Gap 20.3 (5-19); Globulin 3.5 g/dL (1.3-4.6); Potassium 4.3 mmol/L (3.5-5.1)
[2024-04-25 19:31] LABS: Aspartate Amino Transferase 18 U/L (0-40)
[2024-04-25 20:36] LABS: Glucose Point of Care 148 mg/dL (70-110)
[2024-04-26] VITALS (7 sets, daily range): BP systolic 121–124; BP diastolic 53–68; PULSE 54–63; RESP 16–18; TEMP 36.6–37.1; O2SAT 86–95
--- NOTE | 2024-04-26 05:36 | ECG_ITS ---
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 Measurements Intervals [place] Rate: 58 P: -4 OK: 214 QRS: -32 QRSD: 121 T: 20 QT: 460 QTc: 452 Interpretive Statements SINUS BRADYCARDIA WITH FIRST DEGREE AV BLOCK LEFT AXIS DEVIATION [QRS AXIS < -30] MODERATE INTRAVENTRICULAR CONDUCTION DELAY [110+ ms QRS DURATION] INTERPRETATION BASED ON A DEFAULT AGE OF 40 YEARS Compared to ECG 04/23/2024 20:25:02 First degree AV block now present Left-axis deviation now present Intraventricular conduction delay now present Atrial flutter no longer present Myocardial infarct finding no longer present Electronically Signed On 04-26-2024 21:25:54 CDT by Diogo Chapa M.D. [id number] f
--- NOTE | 2024-04-26 05:36 | ECG_ITS ---
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 Measurements Intervals [place] Rate: 58 P: -4 RI: 214 QRS: -32 QRSD: 121 T: 20 QT: 460 QTc: 452 Interpretive Statements SINUS BRADYCARDIA WITH FIRST DEGREE AV BLOCK LEFT AXIS DEVIATION [QRS AXIS < -30] MODERATE INTRAVENTRICULAR CONDUCTION DELAY [110+ ms QRS DURATION] INTERPRETATION BASED ON A DEFAULT AGE OF 40 YEARS Compared to ECG 04/23/2024 20:25:02 First degree AV block now present Left-axis deviation now present Intraventricular conduction delay now present Atrial flutter no longer present Myocardial infarct finding no longer present Electronically Signed On 04-26-2024 21:25:46 CDT by Diogo Chapa M.D. [id number] f
[2024-04-26 05:38] LABS: Glucose Point of Care 145 mg/dL (70-110)
[2024-04-26 05:53] LABS: Basophils % 0.6 %; Eosinophils # 0.3 10^3/uL (0.0-0.8); Eosinophils % 4.3 %; Hematocrit 44.2 % (37-53); Lymphocytes # 1.7 10^3/uL (0.8-4.8); Lymphocytes % 26.2 %; Mean Corpuscular HGB Conc 31.2 g/dL (30-55); Mean Corpuscular Hemoglobin 29.6 pg (27-33); Mean Corpuscular Volume 94.8 fl (82-101); Mean Platelet Volume 9.4 fL (7.4-10.4); Monocytes # 0.5 10^3/uL (0.2-0.9); Monocytes % 8.6 %; Neutrophils # 3.77 10^3/uL (1.8-7.7); Neutrophils % 59.8 %; Nucleated Red Blood Cells % 0 %; Platelet Count 235 10^3/cmm (157-399); Red Blood Count 4.66 10^6/uL (3.85-5.65); Red Cell Distribution Width 13.6 % (12.1-15.1)
[2024-04-26] MEDS: levoFLOXacin 750 mg Tablet PO (05:58)
[2024-04-26] MEDS: levothyroxine 200 mcg Tablet PO (05:58)
[2024-04-26] MEDS: lidocaine 2% viscous 15 ML, aluminum-mag hydrox-simethicon 30 ML, sucralfate oral liq 1 GM PO (05:59)
[2024-04-26] MEDS: acetaminophen 325 mg Tablet 650 MG PO (06:07)
[2024-04-26 06:13] LABS: Anion Gap 16.3 (5-19); Blood Urea Nitrogen 24 mg/dL (8-23); Calcium 8.5 mg/dL (8.5-10.5); Carbon Dioxide 26 mmol/L (22-29); Chloride 97 mmol/L (98-107); Creatinine Clr Calc Pharmacy 92.5058; Glucose 145 mg/dL (65-115); Osmolality Calculated 287 mOsm/kg (285-295); Potassium 4.3 mmol/L (3.5-5.1); Sodium 135 mmol/L (136-145)
--- NOTE | 2024-04-26 06:16 | PC.NURSE ---
At approximately 5:30 pt complained of chest and neck pain that radiated down his left arm, shortness breath, and was very diaphoretic. EKG was obtained and showed sinus bradycardia. BG was 145. BP 127/62, HR 58, spo2 95% on 4L NC, and RR 26. Dr. James notified. Ordered a troponin series and a GI cocktail.
[2024-04-26 06:47] LABS: Troponin(5th) Baseline 42 ng/L (0-15)
--- NOTE | 2024-04-26 08:11 | ECG_ITS ---
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 Measurements Intervals [place] Rate: 62 P: 7 AK: 221 QRS: -35 QRSD: 116 T: 34 QT: 439 QTc: 447 Interpretive Statements SINUS RHYTHM WITH FIRST DEGREE AV BLOCK WITH OCCASIONAL SUPRAVENTRICULAR PREMATURE COMPLEXES LEFT AXIS DEVIATION [QRS AXIS < -30] PATTERN CONSISTENT WITH PULMONARY DISEASE MODERATE INTRAVENTRICULAR CONDUCTION DELAY [110+ ms QRS DURATION] Compared to ECG 04/26/2024 05:36:24 Sinus bradycardia no longer present Electronically Signed On 04-26-2024 21:36:12 CDT by Diogo Chapa M.D. [id number]
[2024-04-26] MEDS: gabapentin 400 mg Capsule 800 MG PO (08:15)
[2024-04-26] MEDS: apixaban 5 mg Tablet PO (08:16)
[2024-04-26] MEDS: aspirin 81 mg EC Tablet PO (08:16)
[2024-04-26] MEDS: metoprolol tartrate 25 mg Tablet PO (08:16)
[2024-04-26] MEDS: insulin lispro 100 unit/1 mL SUBCUT (08:17)
--- NOTE | 2024-04-26 08:29 | PM.PN ---
Vitals/I&O/Wt Last Vital Signs Temp 97.9 F 04/26/24 07:25 Pulse 54 L 04/26/24 07:25 Resp 17 04/26/24 07:25 BP 121/68 04/26/24 07:25 Pulse Ox 94 04/26/24 07:25 O2 Del Method Nasal Cannula 04/26/24 07:25 O2 Flow Rate 4 04/26/24 08:00 FiO2 30 04/25/24 04:00 04/25/24 04/26/24 04/26/24 22:59 06:59 14:59 Intake Total 840 / 1634.463 120 / 1754.463 240 / 240 Output Total 650 / 1750 200 / 1950 Balance 190 / -115.537 -80 / -195.537 240 / 240 Weight last 48 hrs Weight 298 lb 6.4 oz Weight 267 lb 12.8 oz Data 04/26/24 05:32 04/26/24 05:32 Micro: Microbiology 04/24/24 19:08 Blood Culture - Preliminary Blood NEGATIVE TO DATE 04/24/24 19:06 Blood Culture - Preliminary Blood NEGATIVE TO DATE 04/25/24 07:37 Gram Stain - Final Sputum - Expectorated Sputum 04/24/24 16:27 Bacterial Antigens - Final Urine,Voided Coding Level of Care Code Acute Code for Chg Fwd
[2024-04-26] MEDS: ipratropium-albuterol 3 mL Neb INHALATION (08:37)
[2024-04-26 08:49] LABS: Troponin 5 2HR 44.69 ng/L (0-15); Troponin 5 2HR Delta 2.69 ABS# (0-10)
--- NOTE | 2024-04-26 09:06 | PC.NURSE ---
Addendum entered by Angi Bradley LPN 04/26/24 11:00: This nurse called patients , Mariella, and informed her that pt was ready to be picked up. Mariella says she will be here in about 30mins. Original Note: D/C pending delivery of O2 for home.
[2024-04-26 10:44] LABS: Glucose Point of Care 156 mg/dL (70-110)
--- NOTE | 2024-04-26 11:02 | PM.DCS ---
Discharge Providers Date of Admission: 04/23/24 16:00 Date of Discharge: April 26, 2024 Attending Provider at Admission: Leisa Romero MD Attending Provider at Discharge: Filomena Gonzalez MD Primary Care Provider: Tamara Guillaume APN Diagnoses at Discharge Discharge Diagnosis (1) Atrial fibrillation with RVR: Status: Acute Reason for Visit Reason for Visit: SOB Hospital Course Hospital Course 79-year-old male who was admitted to the hospital for management and evaluation of new onset A-fib with RVR, patient did not respond to Cardizem or amiodarone, cardiology was consulted for cardioversion, after cardioversion his rhythm changed to sinus, patient was kept on metoprolol and Eliquis after cardioversion. Please note patient has diastolic CHF exacerbation for which he will need Lasix on daily basis. He was diuresed throughout hospitalization. At the time of discharge she is requiring 3 L of oxygen, during hospitalization he was treated for pneumonia, I will add levofloxacin at discharge. Please note patient experienced 1 episode of chest pain, he was evaluated by Dr. Goff, patient is not interested to stay for a stress test, he would like to get it done outpatient. Discharge Data Studies Completed and Pending Completed Studies During Hospitalization Category Date Time Status CT chest abdomen pelvis [[place] [id number] Cat Scan 04/23/24 16:18 Completed ] Stat XR chest 1V portable [id number] Stat Exams 04/23/24 14:29 Completed CV. echo complete* [id number] Routine Ultrasound 04/24/24 06:00 Completed Pending at discharge Category Date Time Status Blood Culture Stat Lab 04/24/24 19:08 Results C.Diff PCR (Lab) Routine Lab 04/23/24 16:23 Uncollected MRSA [Methicillin Resistant S.aureu] Routine Lab 04/24/24 16:25 Received Sputum Culture and Gram Stain Routine Lab 04/25/24 07:37 Results Troponin(5th) 6 hour. Timed Lab 04/26/24 11:32 Ordered Radiology Impressions Chest X-Ray 04/23/24 14:29 IMPRESSION: Left lower lobe consolidation collapse with a possible small left pleural effusion. Chest/Abdomen/Pelvis CT 04/23/24 16:18 IMPRESSION: 1. There is elevation of the left hemidiaphragm. Consolidation in the left upper lobe and left lower lobe may be a result of this and represent atelectasis. Pneumonia cannot be excluded. 2. Emphysematous changes are present in the lungs. IMPRESSION: 1. Prostate gland indents the base of the bladder consistent with median lobe enlargement. 2. 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 There is resultant grade 1 spondylolisthesis at L5-S1 with bilateral neural foraminal narrowing. Lower lumbar broad-based disc osteophyte complexes. 3. Infrarenal abdominal aorta is aneurysmal measuring 3.4 x 3.4 cm in AP/transverse dimensions. No evidence for rupture. 4. There is diverticulosis of the colon without evidence of diverticulitis. Laboratory Results WBC 6.30 10^3/uL (3.29-11.43) 04/26/24 05:32 RBC 4.66 10^6/uL (3.85-5.65) 04/26/24 05:32 Hgb 13.80 g/dL (11.27-16.99) 04/26/24 05:32 Hct 44.2 % (37-53) 04/26/24 05:32 MCV 94.8 fl (82-101) 04/26/24 05:32 MCH 29.6 pg (27-33) 04/26/24 05:32 MCHC 31.2 g/dL (30-55) 04/26/24 05:32 RDW 13.6 % (12.1-15.1) 04/26/24 05:32 Plt Count 235 10^3/cmm (157-399) 04/26/24 05:32 MPV 9.4 fL (7.4-10.4) 04/26/24 05:32 Neut % (Auto) 59.8 % 04/26/24 05:32 Lymph % (Auto) 26.2 % 04/26/24 05:32 [place] % (Auto) 8.6 % 04/26/24 05:32 Eos % (Auto) 4.3 % 04/26/24 05:32 Baso % (Auto) 0.6 % 04/26/24 05:32 Neut # (Auto) 3.77 10^3/uL (1.8-7.7) 04/26/24 05:32 Lymph # (Auto) 1.7 10^3/uL (0.8-4.8) 04/26/24 05:32 [place] # (Auto) 0.5 10^3/uL (0.2-0.9) 04/26/24 05:32 Eos # (Auto) 0.3 10^3/uL (0.0-0.8) 04/26/24 05:32 Baso # (Auto) 0.0 10^3/uL (0.0-0.1) 04/26/24 05:32 Nucleated RBC % (auto) 0 % 04/26/24 05:32 Nucleated RBCs # 0.0 /100WBC 04/26/24 05:32 Sodium 135 mmol/L (136-145) L 04/26/24 05:32 Potassium 4.3 mmol/L (3.5-5.1) 04/26/24 05:32 Chloride 97 mmol/L (98-107) L 04/26/24 05:32 Carbon Dioxide 26 mmol/L (22-29) 04/26/24 05:32 Anion Gap 16.3 (5-19) 04/26/24 05:32 BUN 24 mg/dL (8-23) H 04/26/24 05:32 Creatinine 0.9 mg/dL (0.7-1.2) 04/26/24 05:32 GFR Calculation Not Reportable 04/26/24 05:32 Glucose 145 mg/dL (65-115) H 04/26/24 05:32 POC Glucose 156 mg/dL (70-110) H 04/26/24 10:36 Estimat Average Glucose 146 04/23/24 14:05 Hemoglobin A1c 6.7 % (4.0-6.0) H 04/23/24 14:05 Calculated Osmolality 287 mOsm/kg (285-295) 04/26/24 05:32 Calcium 8.5 mg/dL (8.5-10.5) 04/26/24 05:32 Total Bilirubin 0.6 mg/dL (0.15-1.2) 04/25/24 15:45 AST 18 U/L (0-40) 04/25/24 15:45 ALT 20 U/L (0-41) 04/25/24 15:45 Alkaline Phosphatase 75 U/L (40-130) 04/25/24 15:45 Troponin T Baseline 42 ng/L (0-15) H 04/26/24 05:32 Troponin T 120 Minute 44.69 ng/L (0-15) H 04/26/24 08:07 Delta Troponin T 2.69 ABS# (0-10) 04/26/24 08:07 Troponin T Hi Sens 6Hr 44.24 ng/L (0-15) H 04/23/24 20:52 Troponin T Hi Sens 6Hr Delta 2.24 ng/L (0-12) 04/23/24 20:52 NT-Pro-B Natriuret Pep 1705 pg/mL (0-450) H 04/23/24 14:05 Total Protein 6.9 g/dL (6.6-8.7) 04/25/24 15:45 Albumin 3.4 g/dL (3.5-5.2) L 04/25/24 15:45 Globulin 3.5 g/dL (1.3-4.6) 04/25/24 15:45 Triglycerides 246 mg/dL (0-150) H 04/23/24 14:05 Cholesterol 203 mg/dL (0-200) H 04/23/24 14:05 LDL Cholesterol, Calc 127 mg/dL (50-129) 04/23/24 14:05 HDL Cholesterol 27 mg/dL (60-100) L 04/23/24 14:05 LDL/HDL Ratio 4.70 RATIO (0.00-3.22) H 04/23/24 14:05 Cholesterol/HDL Ratio 7.52 mg/dL (1.0-5.00) H 04/23/24 14:05 TSH 3.22 uIU/mL (0.27-4.20) 04/23/24 14:05 Urine Color Yellow (Yellow) 04/23/24 15:36 Urine Appearance Clear (CLEAR) 04/23/24 15:36 Urine pH 5 (5-7) 04/23/24 15:36 Ur Specific [place] 1.025 (1.005-1.030) 04/23/24 15:36 Urine Protein Neg (Negative) 04/23/24 15:36 Urine Glucose (UA) Norm (Normal) 04/23/24 15:36 Urine Ketones Negative (Negative) 04/23/24 15:36 Urine Blood Neg (Negative) 04/23/24 15:36 Urine Nitrate Negative (Negative) 04/23/24 15:36 Urine Bilirubin Neg (Negative) 04/23/24 15:36 Urine Urobilinogen Norm mg/dL (Negative) 04/23/24 15:36 Ur Leukocyte Esterase Negative (Negative) 04/23/24 15:36 Vitals Last Vital Signs Temp 97.9 F 04/26/24 07:25 Pulse 63 04/26/24 08:37 Resp 16 04/26/24 08:37 BP 121/68 04/26/24 07:25 Pulse Ox 86 L 04/26/24 08:39 O2 Del Method Nasal Cannula 04/26/24 08:38 O2 Flow Rate 4 04/26/24 08:39 FiO2 30 04/25/24 04:00 Discharge Plan Discharge Patient Disposition: Home Condition: Stable Prescriptions: New Eliquis 5 mg Tablet 5 mg PO BID@0900,2100 Qty: 60 4RF levofloxacin 750 mg Tablet 750 mg PO DAILY@0600 Qty: 3 0RF metoprolol tartrate 25 mg Tablet 12.5 mg PO BID@0900,2100 Qty: 60 3RF Continued ([facility]) Diabetic shoes with inserts See Rx Instructions .Route .MEDSUPPLY Qty: 1 0RF Rx Instructions: As directed ([facility]) diabetic shoes See Rx Instructions .Route .MEDSUPPLY Qty: 1 0RF Rx Instructions: diabetic foot with callus formation and neuropathy. cholecalciferol (vitamin D3) 50 mcg (2,000 unit) capsule 50 mcg PO DAILY Qty: 1 0RF Rx Instructions: OTC ([facility]) CPAP machine and supplies See Rx Instructions .ROUTE .MEDSUPPLY Qty: 1 0RF Rx Instructions: As directed ([facility]) OneTouch Ultra Test Strip See Rx Instructions .Route Qty: 50 5RF Rx Instructions: use 1 daily ([facility]) blood-glucose meter [OneTouch Ultra2 Meter] Kit See Rx Instructions .Route Qty: 1 0RF Rx Instructions: As directed ([facility]) Diabetic Shoes with 3 Insoles See Rx Instructions .Route .MEDSUPPLY Qty: 1 0RF Rx Instructions: As directed ([facility]) Diabetic shoes See Rx Instructions .ROUTE .MEDSUPPLY Qty: 1 0RF Rx Instructions: With 3 pairs of inserts made by the shoe guys ([facility]) diabetic shoes with 3 inserts See Rx Instructions .Route .MEDSUPPLY Qty: 1 0RF Rx Instructions: As directed to HOME gabapentin 800 mg tablet 800 mg PO TID Qty: 270 1RF levothyroxine 200 mcg tablet 200 mcg PO DAILY Qty: 90 1RF potassium chloride [Klor-Con 10] 10 mEq tablet extended release 10 meq PO QDAY PRN (Reason: with fluid pill ) Qty: 90 1RF valsartan [Diovan] 80 mg tablet 80 mg PO DAILY Qty: 90 1RF chlorhexidine gluconate [Peridex] 0.12 % mouthwash 15 ml buccal BID Qty: 473 2RF nitroglycerin 400 mcg/spray spray,non-aerosol 1 spray translingual Q5M PRN (Reason: chest pain) Qty: 4.9 0RF Rx Instructions: do not exceed 3 doses per episode oxycodone-acetaminophen 5-325 mg Tablet 1 tab PO BID PRN (Reason: Pain) pantoprazole [Protonix] 40 mg tablet,delayed release (DR/EC) 40 mg PO BID Qty: 60 11RF Aldactone 25 mg tablet 25 mg PO DAILY furosemide 20 mg tablet 20 mg PO QAM PRN (Reason: edema) Qty: 90 1RF aspirin 81 mg tablet,delayed release (DR/EC) 81 mg PO DAILY Qty: 90 3RF Held metformin 500 mg tablet extended release 24 hr 500 mg PO BID Hold Instructions: Resume on 04/29/24. Discharge Orders: Discharge Order (Routine); Ordered 04/26/24 Ordered By: Filomena Gonzalez Other Ambulatory Orders: DME: Oxygen (Order) Location: None Selected Ordered By: Filomena Gonzalez [place]: [facility] [place] Celia Allen FNP [Nurse Practitioner] - 05/03/24 11:40 am () Tamara Guillaume APN [Primary Care Provider] - 04/29/24 2:00 pm Discharge Diet: Cardiac Discharge Activity: Increase activity as tolerated Patient Instructions: Atrial Fibrillation, Metoprolol (By mouth), Levofloxacin (By mouth), Apixaban (By mouth) (Eliquis), Viral Pneumonia (DC), Opioid Safety Activity Restrictions/Additional Instructions: You can increase Lasix to 40 mg daily for next 4 to 5 days then switch back to 20 mg daily Whenever you take Lasix take potassium with it Discharge Attestations Time Spent in Discharge Care*: greater than 30 min Quality Metrics Clinical Quality Measures [ No reported AMI, CVA or VTE this stay] Coding Level of Care Code Acute Code for Chg Fwd Diagnoses Atrial fibrillation with RVR I48.91
[2024-04-26 12:42] LABS: Troponin 5 6HR 40.58 ng/L (0-15)
[2024-04-26 12:46] LABS: Troponin 5 6HR Delta -1.42 ng/L (0-12)
[2024-04-26 20:26] LABS: Methicillin-Resist S.aureu PCR NOT DETECTED (NOT DETECTED)
== END 2024-04-26 12:25 | disposition home or self-care (01) | DRG 308 ==
LOC: ER 15:20 → CSU 16:43 → ICU 04-24 16:47 → MEDSURG 04-25 16:42
PROVIDERS: Internal Medicine; Admitting Provider Student in an Organized Health Care Education/Training Program; Emergency Provider Family Medicine; PCP Nurse Practitioner Family; Visit Provider Internal Medicine
DX: I48.91 Unspecified atrial fibrillation (principal); I50.33 Acute on chronic diastolic (congestive) heart failure; I25.10 Atherosclerotic heart disease of native coronary artery without angina pectoris; I11.0 Hypertensive heart disease with heart failure; E11.43 Type 2 diabetes mellitus with diabetic autonomic (poly)neuropathy; T50.1X6A Underdosing of loop [high-ceiling] diuretics, initial encounter; I95.9 Hypotension, unspecified; I35.0 Nonrheumatic aortic (valve) stenosis; K57.90 Diverticulosis of intestine, part unspecified, without perforation or abscess without bleeding; G47.33 Obstructive sleep apnea (adult) (pediatric); N40.1 Benign prostatic hyperplasia with lower urinary tract symptoms; E55.9 Vitamin D deficiency, unspecified; E03.9 Hypothyroidism, unspecified; K21.9 Gastro-esophageal reflux disease without esophagitis; Z95.5 Presence of coronary angioplasty implant and graft; Z91.128 Patient's intentional underdosing of medication regimen for other reason; Z79.82 Long term (current) use of aspirin; Z79.84 Long term (current) use of oral hypoglycemic drugs; Z99.81 Dependence on supplemental oxygen
CPT/HCPCS: 36415; 36416; 71045; 71250; 74176; 80048; 80053; 80061; 81003; 82962; 83036; 83880; 84443; 84484; 85025; 86403; 87040; 87070; 87205; 87641; 93005; 93306; 94640; 94760; 96365; 96366; 96367; 96372; 96374; 96375; 96376; 97162; 99285; A4222; J0283; J1160; J1644; J1650; J1815; J1940; J2405; J2543; J2704; J3370; J3490; J7050; Q0144

== ENCOUNTER → 2024-06-08 10:14 | Outpatient (BNVA) | payer MEDICARE, OTHER, SELFPAY | PROVIDERS: PCP Nurse Practitioner; Visit Provider Podiatrist Foot & Ankle Surgery | DX: E11.8 Type 2 diabetes mellitus with unspecified complications (principal); E11.42 Type 2 diabetes mellitus with diabetic polyneuropathy; L84 Corns and callosities; L60.3 Nail dystrophy; M21.621 Bunionette of right foot; M21.622 Bunionette of left foot; M20.41 Other hammer toe(s) (acquired), right foot; M20.42 Other hammer toe(s) (acquired), left foot; M21.41 Flat foot [pes planus] (acquired), right foot; M21.42 Flat foot [pes planus] (acquired), left foot; Z79.84 Long term (current) use of oral hypoglycemic drugs | CPT/HCPCS: 11055; 11721 ==

== ENCOUNTER → 2024-07-19 11:21 | Outpatient (BNVA) | payer MEDICARE, OTHER, SELFPAY | PROVIDERS: PCP Nurse Practitioner; Visit Provider Nurse Practitioner | DX: E11.9 Type 2 diabetes mellitus without complications (principal) | CPT/HCPCS: 80053; 80061; 82607; 83036 ==

== ENCOUNTER → 2024-09-06 14:22 | Outpatient (BNVA) | payer MEDICARE, OTHER, SELFPAY | PROVIDERS: PCP Nurse Practitioner; Visit Provider Podiatrist Foot & Ankle Surgery | DX: E11.42 Type 2 diabetes mellitus with diabetic polyneuropathy (principal); L84 Corns and callosities; L60.3 Nail dystrophy; M21.621 Bunionette of right foot; M21.622 Bunionette of left foot; M20.41 Other hammer toe(s) (acquired), right foot; M20.42 Other hammer toe(s) (acquired), left foot; M21.41 Flat foot [pes planus] (acquired), right foot; M21.42 Flat foot [pes planus] (acquired), left foot | CPT/HCPCS: 11055; 11721 ==

== ENCOUNTER → 2024-10-10 08:50 | Outpatient (BNVA) | payer MEDICARE, OTHER, SELFPAY | PROVIDERS: PCP Nurse Practitioner; Visit Provider Nurse Practitioner | DX: E11.9 Type 2 diabetes mellitus without complications (principal) | CPT/HCPCS: 80053; 80061; 83036; 85025 ==

== ENCOUNTER → 2024-11-22 10:52 | Outpatient (BNVA) | payer MEDICARE, OTHER, SELFPAY | PROVIDERS: PCP Nurse Practitioner; Visit Provider Nurse Practitioner | DX: N41.1 Chronic prostatitis (principal); E11.42 Type 2 diabetes mellitus with diabetic polyneuropathy | CPT/HCPCS: 81000 ==

== ENCOUNTER 2024-12-02 10:01 | Outpatient (CLI) | payer MEDICARE, OTHER, SELFPAY ==
--- NOTE | 2024-12-02 10:00 | US_ITS ---
WS: [id number] RENAL ULTRASOUND HISTORY: N41.1 - Chronic prostatitis COMPARISON: CT 04/23/2024 TECHNIQUE: 2-D and color Doppler imaging of the kidney submitted. Right kidney: 10.8 cm x 5.5 cm x 5.2 cm. Cortex: 1.1 cm Normal echogenicity with no hydronephrosis or mass. Left kidney: 12.9 cm x 6.0 cm x 6.1 cm. Cortex: 1.3 cm Normal echogenicity with no hydronephrosis or mass. Aorta: Ectatic abdominal aorta, diameter of 3.3 cm consistent with mild aneurysmal dilatation. Urinary Bladder: Normally distended. Prostate gland is enlarged with central calcifications encroaching upon the base of the bladder. US/US renal BI* [id number] IMPRESSION: 1. No renal obstruction or solid mass. Normal size kidneys. 2. Mild abdominal aortic aneurysm, 3.3 cm.
== END 2024-12-02 10:02 | disposition home or self-care (01) ==
PROVIDERS: PCP Nurse Practitioner; Visit Provider Nurse Practitioner
DX: N41.1 Chronic prostatitis (principal); I71.40 Abdominal aortic aneurysm, without rupture, unspecified; N40.0 Benign prostatic hyperplasia without lower urinary tract symptoms; R93.89 Abnormal findings on diagnostic imaging of other specified body structures
CPT/HCPCS: 76770

== ENCOUNTER 2024-12-05 14:08 | Outpatient (CLI) | payer MEDICARE, OTHER, SELFPAY ==
--- NOTE | 2024-12-05 14:13 | XRR_ITS ---
PROCEDURE INFORMATION: Exam: XR Left Hip Exam date and time: 12/05/2024 2:26 PM Age: 79 years old Clinical indication: Left hip pain x 2-3 months, getting increasingly worse and difficulty walking, no specific injury; Additional info: Pain in left hip TECHNIQUE: Imaging protocol: Radiologic exam of the left hip. Views: 2 or 3 views hip with pelvis when performed. COMPARISON: [place] [id number] 04/23/2024 5:41 PM FINDINGS: Bones/joints: No acute fracture. Moderate DJD of the left hip. Soft tissues: Unremarkable. XR/XR hip LT 2-3V wo/w pel* [id number] IMPRESSION: No acute findings. Moderate DJD of the left hip.
== END 2024-12-05 14:09 | disposition home or self-care (01) ==
LOC: RAD 14:10
PROVIDERS: PCP Nurse Practitioner; Visit Provider Anesthesiology Pain Medicine
DX: M25.552 Pain in left hip (principal); M16.12 Unilateral primary osteoarthritis, left hip
CPT/HCPCS: 73502

== ENCOUNTER → 2024-12-07 13:05 | Outpatient (BNVA) | payer MEDICARE, OTHER, SELFPAY | PROVIDERS: PCP Nurse Practitioner; Visit Provider Podiatrist Foot & Ankle Surgery | DX: E11.42 Type 2 diabetes mellitus with diabetic polyneuropathy (principal); L84 Corns and callosities; L60.3 Nail dystrophy; M21.621 Bunionette of right foot; M21.622 Bunionette of left foot; M20.41 Other hammer toe(s) (acquired), right foot; M20.42 Other hammer toe(s) (acquired), left foot; M21.41 Flat foot [pes planus] (acquired), right foot; M21.42 Flat foot [pes planus] (acquired), left foot | CPT/HCPCS: 11055; 11721 ==

== ENCOUNTER → 2024-12-20 10:22 | Outpatient (BNVA) | payer MEDICARE, OTHER, SELFPAY | PROVIDERS: PCP Nurse Practitioner; Visit Provider Nurse Practitioner | DX: E11.43 Type 2 diabetes mellitus with diabetic autonomic (poly)neuropathy (principal); E11.65 Type 2 diabetes mellitus with hyperglycemia; E03.8 Other specified hypothyroidism; I10 Essential (primary) hypertension; E11.9 Type 2 diabetes mellitus without complications; R39.11 Hesitancy of micturition; J98.01 Acute bronchospasm; K58.2 Mixed irritable bowel syndrome; Z78.9 Other specified health status | CPT/HCPCS: 80053; 80061; 83036 ==

== ENCOUNTER → 2025-01-25 15:12 | Outpatient (BNVA) | payer MEDICARE, OTHER, SELFPAY | PROVIDERS: PCP Nurse Practitioner; Visit Provider Nurse Practitioner | DX: N39.0 Urinary tract infection, site not specified (principal) | CPT/HCPCS: 81000 ==

== ENCOUNTER → 2025-03-08 12:58 | Outpatient (BNVA) | payer MEDICARE, OTHER, SELFPAY | PROVIDERS: PCP Nurse Practitioner; Visit Provider Podiatrist Foot & Ankle Surgery | DX: E11.42 Type 2 diabetes mellitus with diabetic polyneuropathy (principal); L60.3 Nail dystrophy; L84 Corns and callosities; M21.621 Bunionette of right foot; M21.622 Bunionette of left foot; M20.41 Other hammer toe(s) (acquired), right foot; M20.42 Other hammer toe(s) (acquired), left foot; M21.41 Flat foot [pes planus] (acquired), right foot; M21.42 Flat foot [pes planus] (acquired), left foot | CPT/HCPCS: 11056; 11721 ==

== ENCOUNTER 2025-03-21 09:50 | Outpatient (CLI) | payer MEDICARE, OTHER, SELFPAY ==
--- NOTE | 2025-03-21 10:00 | CT_ITS ---
WS: [id number] CT HEAD NONCONTRAST HISTORY: R42 - Dizziness and giddiness TECHNIQUE: Contiguous axial imaging performed through the brain. Bone and soft tissue windows. Sagittal and coronal reformats reviewed. All CT scans at [facility] use at least one of these dose optimization techniques: automated exposure control; mA and/or kV adjustment per patient size (includes targeted exams where dose is matched to clinical indication); or iterative reconstruction. DLP: 1162.38 mGy.cm COMPARISON: 04/24/2018 No acute intracranial hemorrhage, midline shift or mass effect. Mild symmetric atrophy. 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 Infarct is new since 04/24/2018. No additional infarct. Mild cerebellar atrophy. Ventricles: Normal size with no hydrocephalus. Paranasal sinuses: Frothy secretions in the LEFT maxillary sinus. Mastoid air cells: Well pneumatized. Calvarium and scalp: Skull is intact with no soft tissue edema or swelling. Incidental note is made of a small drusen bodies located near the optic nerve heads. CT/CT head wo con* [id number] IMPRESSION: 1. No acute intracranial hemorrhage or edema. 2. Remote RIGHT temporal lobe infarct. 3. Mild cerebral and cerebellar atrophy.
== END 2025-03-21 09:51 | disposition home or self-care (01) ==
LOC: RAD 09:52
PROVIDERS: PCP Nurse Practitioner; Visit Provider Nurse Practitioner
DX: R42 Dizziness and giddiness (principal); G31.89 Other specified degenerative diseases of nervous system; J34.89 Other specified disorders of nose and nasal sinuses; R93.0 Abnormal findings on diagnostic imaging of skull and head, not elsewhere classified
CPT/HCPCS: 70450

== ENCOUNTER 2025-04-13 15:21 | Emergency (ER) | payer MEDICARE, OTHER, SELFPAY ==
[2025-04-13 15:27] VITALS: BP 133/55; PULSE 70; RESP 18; TEMP 36.8; O2SAT 94; BMI 35.4
--- OUTSIDE RECORDS SUMMARY | 2025-04-13 15:28 | XMS_ITS | Clinical Summary ---
Author Organization [facility] Address [address] [place] [address] Phone Care Team Providers Care Nursery Attendant Name Role Phone Markell, Tamara Bass APN Primary Care Provider [phone] Allergies No known active allergies Medications aspirin (ECOTRIN EC) 81 mg Tablet, Delayed Release (E.C.) Take 81 mg by mouth daily. 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 Active clopidogreL (PLAVIX) 75 mg Tablet Take 75 mg by mouth daily. 04/02/2020 Active finasteride (PROSCAR) 5 mg tablet Take 5 mg by mouth daily. 04/02/2020 Active oxyCODONE-aceta minophen (PERCOCET) 5-325 mg tablet Take 1 Tablet by mouth every 8 hours as needed. 02/10/2020 Active potassium chloride (KLOR-CON) 10 mEq Extended Release tablet Take 10 mEq by mouth 1 time daily as needed. 04/02/2020 Active furosemide (LASIX) 40 mg tablet Take 40 mg by mouth 1 time daily as needed. 04/02/2020 Active gabapentin (NEURONTIN) 800 mg tablet 04/02/2020 Active dexlansoprazole (Dexilant) 30 mg capsule Take 30 mg by mouth daily. Active liothyronine (CYTOMEL) 5 mcg Tablet Take 5 mcg by mouth daily. Active nitroglycerin (NITROLINGUAL) 400 mcg/spray [place], Non-Aerosol Place 1 [place] under tongue every 5 minutes as needed for Chest Pain. Active pregabalin (LYRICA) 50 mg Capsule Take 50 mg by mouth daily at bedtime. Active Active Problems Problem Noted Date Diagnosed Date Type 2 diabetes mellitus wit hout complication, without long-term current use of insulin 04/05/2020 Obesity (BMI 35.0-39.9 without comorbidity) 03/13 Primary osteoarthritis of both knees 04/05/2020 Social History Tobacco Use Types Packs/Day Years Used Date Smoking Tobacco: Former Smokeless Tobacco: Never Alcohol Use Standard Drinks/Week Comments No 0 (1 standard drink = 0.6 oz pur e alcohol) Sex and Gender Information Value Date Recorded Sex Assigned at Not on file Legal Sex Male 4:05 PM BUSINESS DEVELOPMENT REPRESENTATIVE Gender Identity Not on file Sexual Orientation Not on file Last Filed Vital Signs Vital Sign Reading Time Taken Comments Blood Pressure 140/64 12/09/2020 1:29 PM BUSINESS DEVELOPMENT REPRESENTATIVE Pulse 55 12/09/2020 11:01 AM BUSINESS DEVELOPMENT REPRESENTATIVE Temperature 36 C (96.8 F) 12/09/2020 1:29 PM BUSINESS DEVELOPMENT REPRESENTATIVE Respiratory Rate 16 12/09/2020 1:29 PM BUSINESS DEVELOPMENT REPRESENTATIVE Oxygen Saturation 98% 12/09/2020 1:29 PM BUSINESS DEVELOPMENT REPRESENTATIVE Inhaled Oxygen Concentration - - Weight 126.7 kg (279 lb 6.4 oz) 021 10:31 AM BUSINESS DEVELOPMENT REPRESENTATIVE Height 182.9 cm (6') 12/09/2020 10:31 AM BUSINESS DEVELOPMENT REPRESENTATIVE Body Mass Index 37.89 12/09/2020 10:31 AM BUSINESS DEVELOPMENT REPRESENTATIVE Plan of Treatment Health Maintenance Due Date Last Done Comments DIABETES ANNUAL FOOT EXAM 1965 DIABETES ANNUAL RETINAL EXAM 1965 DIABETES HBA1C Q 6 MONTHS 1965 DIABETES MICROALBUMIN ANNUAL SCREEN 1965 LDL CHOLESTEROL ANNUAL 1965 DTAP/TDAP/TD VACCINES (1 - Tdap) 1966 PNEUMOCOCCAL VACCINE 50+ YEARS (1 of 2 - PCV) 02/22/19 66 ZOSTER VACCINE (1 of 2) 1997 RSV VACCINE (60+ or ) (1 - 1-dose 75+ series) 2022 INFLUENZA VACCINE (#1) 2024 Insurance MEDICARE PART A AND B [place] [employer] [place] [id number] Care Teams Nursery Attendant Relationship Specialty Start Date End Date Tamara Guillaume APN [facility] [address] [address] PCP - General NURSE PRACTITIONER 08/17/18
--- OUTSIDE RECORDS SUMMARY | 2025-04-13 15:28 | XMS_ITS | Encounter Summary ---
Author Organization [facility] Address [address] [place] [address] Care Team Providers Care Real Estate Management Specialist Name Role Phone Markell, Tamara Bass APN Primary Care Provider [phone] Encounter Details Date Type Department Care Team (Latest Contact Info) Description 04/09/2020 Ancillary Orders [facility] Orthopedics [facility] [address] [place] [id number] Brandyn Sarmiento MD [address] [place] [address] Primary osteoarthritis of both knees Social History Tobacco Use Types Packs/Day Years Used Date Smoking Tobacco: Former Smokeless Tobacco: Never Alcohol Use Standard Drinks/Week Comments No 0 (1 standard drink = 0.6 oz pur e alcohol) Sex and Gender Information Value Date Recorded Sex Assigned at Not on file Legal Sex Male 4:05 PM TIPPLE BOSS Gender Identity Not on file Sexual Orientation Not on file COVID-19 Exposure Response Date Recorded In the last month, have you been in contact with someone who was confirmed or suspected to have Coronavirus / COVID-19? No / Unsure 04/09/2020 12:26 PM CDT documented as of this encounter Plan of Treatment Not on file documented as of this encounter Results * XR KNEES AP BILAT STANDING (04/09/2020 12:44 PM CDT) Anatomical Region Laterality Modality Lower Extremity Computed Radiogr aphy Narrative 04/17/2020 7:48 AM CDT Standing AP knees demonstrate severe varus degenerative joint disease. Tricompartmental arthritis bilaterally, left side worse than right. Periarticular osteophytes, joint space narrowing and varus alignment noted. us Brandyn Sarmiento MD DIAGNOSTIC IMAGING [facility] Final Result documented in this encounter Visit Diagnoses Diagnosis Primary osteoarthritis of both knees Primary localized osteoarthrosis, lower leg Primary osteoarthritis of both knees Primary localized osteoarthrosis, lower leg documented in this encounter Care Teams Real Estate Management Specialist Relationship Specialty Start Date End Date Tamara Guillaume APN [address] [place] [id number] PCP - General NURSE PRACTITIONER 08/17/18 documented as of this encounter
--- OUTSIDE RECORDS SUMMARY | 2025-04-13 15:28 | XMS_ITS | Clinical Summary ---
Author Organization [facility] Address [address] Le: Epic Prelude ADT [place]ERNS [address] Care Team Providers Care Wood Piler Name Role Phone Guillaume, Tamara Shelia GARZA Primary Care Provider [phone] Allergies No known active allergies Medications dexlansoprazole (DEXILANT) 30 mg capsule Take 30 mg by mouth daily. 12/09/2020 Active nitroglycerin (NITROLINGUAL) 400 mcg/spray [place], Non-Aerosol Place 1 [place] under tongue every 5 minutes as needed for Chest Pain. 12/09/2020 Active pregabalin (LYRICA) 50 mg Capsule Take 50 mg by mouth daily at bedtime. 12/09/2020 Active liothyronine (CYTOMEL) 5 mcg Tablet Take 5 mcg by mouth daily. 12/09/2020 Active finasteride (PROSCAR) 5 mg tablet Take 5 mg by mouth daily. 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 08/17/2018 Active clopidogreL (PLAVIX) 75 mg Tablet Take 75 mg by mouth daily. 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 08/17/2018 Active potassium chloride (KLOR-CON) 10 mEq Extended Release tablet Take 10 mEq by mouth 1 time daily as needed. 04/02/2020 Active oxyCODONE-aceta minophen (PERCOCET) 5-325 mg tablet Take 1 Tablet by mouth every 8 hours as needed. 02/10/2020 Active gabapentin (NEURONTIN) 800 mg tablet 04/02/2020 Active aspirin (ECOTRIN EC) 81 mg Tablet, Delayed Release (E.C.) Take 81 mg by mouth daily. 08/17/2018 Active furosemide (LASIX) 40 mg tablet Take 40 mg by mouth 1 time daily as needed. 04/02/2020 Active Active Problems Problem Noted Date Diagnosed Date Obesity (BMI 35.0-39.9 without comorbidity) 03/13 Primary osteoarthritis of both knees 04/05/2020 Type 2 diabetes mellitus wit hout complication, without long-term current use of insulin 04/05/2020 Social History Tobacco Use Types Packs/Day Years Used Date Smoking Tobacco: Former Smokeless Tobacco: Never Tobacco Cessation:Counseling Given: Not Answered Alcohol Use Standard Drinks/Week Comments No 0 (1 standard drink = 0.6 oz pur e alcohol) Sex and Gender Information Value Date Recorded Sex Assigned at Not on file Legal Sex Male 3:08 AM 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 Gender Identity Not on file Sexual Orientation Not on file Last Filed Vital Signs Vital Sign Reading Time Taken Comments Blood Pressure 132/80 01/19/2023 2:09 PM CDT Pulse 75 01/19/2023 2:09 PM CDT Temperature 36 C (96.8 F) 12/09/2020 1:29 PM 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 Respiratory Rate 16 12/09/2020 1:29 PM 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 Oxygen Saturation - - Inhaled Oxygen Concentration - - Weight 116.1 kg (256 lb) 01/19/2023 2:09 PM CDT Height 182.9 cm (6') 01/19/2023 2:09 PM CDT Body Mass Index 34.72 01/19/2023 2:09 PM CDT Plan of Treatment Health Maintenance Due Date [...] 1-dose 75+ series) 2022 INFLUENZA VACCINE (#1) 2025 Insurance MEDICARE PART A AND B [facility] [place] [id number] Care Teams Wood Piler Relationship Specialty Start Date End Date Tamara Guillaume APN [facility] [address] [address] PCP - General NURSE PRACTITIONER 08/17/18
--- NOTE | 2025-04-13 15:31 | XR_ITS ---
WS: [id number] XR chest 1V portable [id number] REASON FOR EXAM: dyspnea/cough FINDINGS: The chest is essentially unchanged compared to 04/23/2024. Significant tortuosity and ectasia of the thoracic aorta. There is an aortic valve stent graft. The heart is enlarged. 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 There is fibrotic scarring in the left lung base probably with some atelectasis. No acute pulmonary parenchymal or pleural abnormality is identified. XR/XR chest 1V portable [id number] IMPRESSION: Stable abnormal chest as above. No acute abnormality.
--- NOTE | 2025-04-13 15:31 | ECG_ITS ---
[facility] Pat Name: Mo Van Department: Room: Gender: Male Director Of Database Marketing: : 1945 Requested By: Brain Beltran Order Number: [id number] Reading MD: Measurements Intervals [place] Rate: 66 P: -12 IA: 193 QRS: -6 QRSD: 105 T: 39 QT: 410 QTc: 430 Interpretive Statements SINUS RHYTHM Compared to ECG 04/26/2024 08:32:33 First degree AV block no longer present Left-axis deviation no longer present Intraventricular conduction delay no longer present [email or web address]
--- NOTE | 2025-04-13 15:33 | ED_ITS ---
Documented by User: Brain Dennis DO 04/14/25 06:26 HPI - General Adult 2 General: Chief complaint: Headache Stated complaint: headache,sob,dizzy Time Seen by Provider: 04/13/25 15:31 History of Present Illness: 80-year-old male presents emergency room complaining of shortness of breath. Patient does have known history of coronary artery disease previously had stents. He is also had a valve replacement. He is complaining of increasing shortness of breath with activity as well as some chest pressure. He is previous had a valve replacement as well Associated symptoms: Deny chest pain, dyspnea or rash Related Data Home Medications ?Medication ?Instructions ?Recorded ?Confirmed oxycodone-acetaminophen 5 mg-325 1 tab PO BID PRN Pain 05/31/22 04/13/25 mg tablet spironolactone 25 mg tablet 25 mg PO DAILY 04/23/24 (Aldactone) Previous Rx's ?Medication ?Instructions ?Recorded nitroglycerin 400 mcg/spray 1 spray translingual Q5M P RN chest 11/14/20 translingual pain #4.9 grams CPAP machine and supplies #1 ea 02/10/22 blood sugar diagnostic (OneTouch #50 ea 02/10/22 Ultra Test strips) blood-glucose meter (OneTouch #1 ea 02/10/22 Ultra2 Meter kit) pantoprazole 40 mg tablet,delayed 40 mg PO BID #60 tab s 09/10/22 release (Protonix) aspirin 81 mg tablet,delayed 81 mg PO DAILY #90 tabs 0 11/18/23 release cholecalciferol (vitamin D3) 50 50 mcg PO DAILY #1 cap 12/09/23 mcg (2,000 unit) capsule Lactobacillus rhamnosus GG 20 See Rx Instructions PO . 2 times 10/04/24 billion cell capsule (Probiotic day #60 caps Digestive Care) albuterol sulfate 2.5 mg/3 mL 2.5 mg (3 mL) inhalation Q4H PRN 12/20/24 (0.083 %) solution for nebulization shortness of breat h or wheezing #75 mL gabapentin 800 mg tablet 800 mg PO TID #270 tabs 12/10 11/05 glipizide 5 mg tablet, extended 5 mg PO DAILY #90 tabs 12/20/24 release 24 hr levothyroxine 200 mcg tablet 200 mcg PO DAILY #90 tabs 12/20/24 potassium chloride 10 mEq 10 meq PO QDAY PRN with flui d pill 12/20/24 tablet,extended release (Klor-Con) #90 tabs valsartan 80 mg tablet (Diovan) 80 mg PO DAILY #90 tab s 12/20/24 Diabetic Shoes with Custom Insoles #1 ea 12/29/24 nystatin 100,000 unit/gram topical 1 applic topical BI D #15 grams 01/25/25 cream metoprolol tartrate 25 mg tablet 12.5 mg (1/2 x 25 mg) PO 03/04/25 BID@0900,2100 #90 tabs empagliflozin 25 mg tablet 25 mg PO QAM #90 tabs 03/14 (Jardiance) escitalopram oxalate 10 mg tablet 10 mg PO DAILY #90 t abs 03/14/25 (Lexapro) finasteride 5 mg tablet 5 mg PO QDAY #90 tabs rosuvastatin 20 mg tablet (Crestor) 20 mg PO DAILY #90 tabs 03/14/25 albuterol sulfate 90 mcg/actuation 2 inh inhalation Q4 H #8.5 grams 04/13/25 aerosol inhaler (Ventolin HFA) azithromycin 250 mg tablet See Rx Instructions PO .COM PLEX #6 04/13/25 tabs Allergies Allergy/AdvReac Type Severity Reaction Status Date / Time No Known Allergies Allergy Verified 04/13/25 15:34 Review of Systems 2 Const: Denies: fever(s) or chills Card: Denies: chest pain Resp: Denies: dyspnea GI: Denies: abdominal pain : Denies: dysuria, urinary frequency or urinary urgency Musc: Denies: neck pain or back pain Skin/Breast: Denies: rash PFSH ED 2 PFSH: Medical History Adult onset hypothyroidism Atrial fibrillation Atrial fibrillation status post cardioversion 04/24 Pneumonia Abdominal pain Atrial fibrillation with RVR Heart failure Pleural effusion on left Atrial flutter Hammertoe, bilateral Aortic stenosis Tubular adenoma of colon Helicobacter pylori gastritis Diabetes mellitus with hyperglycemia, without long-term current use of insulin Umbilical hernia Chest pain at rest Allergic rhinitis due to allergen Bilateral hearing loss due to cerumen impaction Dizziness and giddiness DDD (degenerative disc disease), lumbar Diverticula, colon Dependence on nocturnal oxygen therapy Osteoarthritis, knee DM autonomic neuropathy GREG on CPAP BPH loc w urin obs/LUTS Good response and durably so to dual medical therapy of FINASTERIDE/TAMSULOSIN (single dose) Chronic prostatitis On self treatment with CIPROFLOXACIN. Sporadic treatment required. Arteriosclerosis of coronary artery Urinary hesitancy Pain in thoracic spine at multiple sites Vitamin D insufficiency Dyslipidemia CAD (coronary artery disease) GERD (gastroesophageal reflux disease) Essential (primary) hypertension Surgical History History of oral surgery Removal oral extraction 02/02/24 in [place], [place] History of aortic valve replacement 02/03/24 at [facility] in [place], [place] History of angiography With stent placement History of appendectomy History of carotid artery disease surgery right bilateral 2007 History of cataract surgery right and left History of cholecystectomy History of hernia repair Left H/O rectal polypectomy History of surgery on arm right skin graft age 17 History of surgical amputation of finger of right hand age 17 History of colonoscopy 2017 repeat in 3 years Family History Mother Cancer Father CAD (coronary artery disease) Stroke Denies family history of Bleeding disorder Social History Smoking and tobacco/nicotine status: former use of tobacco/nicotine Second hand smoke exposure: No Alcohol intake: never Substance/Drug Use: never Adopted: No Caregiver/support person: No Lives independently: Yes Household members: spouse Housing: House Marital status: service: No Current occupational status: employed and retired Do you think of yourself as: Straight/Heterosexual Current gender identity: Male Physical Exam 2 Const: COMMON NORMALS: no acute distress GENERAL APPEARANCE: cooperative and comfortable ORIENTATION/CONSCIOUSNESS: Yes awake, Yes oriented to person, Yes oriented to place and Yes oriented to time HENMT: COMMON NORMALS: normocephalic, atraumatic and hearing grossly normal bilaterally HEAD & SCALP: normocephalic and atraumatic Resp: COMMON NORMALS: normal respiratory effort, No retractions, No use of accessory muscles and clear to auscultation bilaterally AUSCULTATION: clear to auscultation bilaterally Cardio: COMMON NORMALS: regular rate, regular rhythm and No murmurs present (Cardio) RATE: regular rate RHYTHM: regular rhythm GI: COMMON NORMALS: Soft to palpation and No hepatosplenomegaly present A USCULTATION: Yes normoactive bowel sounds PALPATION: Yes Soft to palpation, No Tenderness to palpation present (GI), No Guarding due to palpation present (GI) and Yes No hepatosplenomegaly present Extremity: COMMON NORMALS: normal to inspection, capillary refill normal, no clubbing, cyanosis or edema, no calf tenderness and no pedal edema Neuro: SENSORIUM/ORIENTATION: Yes oriented to person, Yes oriented to place and Yes oriented to time Skin: COMMON NORMALS: no rashes or lesions noted GENERAL SKIN EXAM: no rashes or lesions noted Course 2 Vital Signs: Vital signs: Vital Signs Temperature 98.3 F 04/13/25 15:27 Pulse Rate 63 04/13/25 19:11 Respiratory Rate 19 H 04/13/25 19:11 Blood Pressure 132/52 04/13/25 19:11 Pulse Oximetry 95 04/13/25 19:11 Oxygen Delivery Me thod Room Air 04/13/25 17:18 MDM - General Adult Medical Decision Making Initial labs ordered. Patient's symptoms concerning for coronary artery disease/acute coronary syndrome however not highly suspicious. Initial EKG does not show any significant changes waiting on a second troponin. Care signed out to Dr. Boles at change of shift. See final notes for diagnosis and disposition. Patient evaluated by myself. Patient with no significant abnormality noted on labs or imaging. Delta troponin is without any significant change. EKG is nonischemic. Chest x-ray shows no acute disease. Patient states that he has had a lot of nasal and sinus congestion as well as feels some respiratory congestion. He states that has been having to clear his throat a lot and feels a lot of mucus in his throat. He does also have a history of sleep apnea. He is oxygenation is fine while he is awake and talking here but does drop down into the high 80s when he is sleeping. Suspect all of this is in combination causing his symptoms. Denies any evidence of acute myocardial infarction at this time. Patient's symptoms not consistent with pulmonary embolism or dissection. Will go and treat patient for upper respiratory infection and have patient follow-up with cardiology as outpatient. Medical Records Procedure Description: Coronary Angiography November 25, 2023 Diagnostic Cath Status: Urgent Diagnostic Findings * INDICATION: Worsening angina/ Aortic stenosis. * Left Main has no signfiicant disease. * Circumflex is large sized, domninant vessel. Mild luminal irregularities. * Right Coronary Artery is small sized vessel. No significant disease. * Mid LAD has patent prior stent. Apical Left Anterior Descending: mild 40% stenosis, DINO: 3 flow. * Right heart cath: Normal right and left sided cardiac pressures. * Aortic valve study: * Severe aortic stenosis with * aortic valve area * of 1 cm2 and mean gradient across aortic valve of 44 mmHg.. * Coronary angiography shows left dominance. Conclusions 1. Non-obstructive coronary artery disease. 2. Severe aortic stenosis. 3. Normal right and left sided cardiac pressures. Lab Data 04/13/25 15:50 04/13/25 15:50 Radiology Impressions Chest X-Ray 04/13/25 15:31 IMPRESSION: Stable abnormal chest as above. No acute abnormality. Head CT 04/13/25 16:12 IMPRESSION: 1. No acute intracranial abnormality. 2. Chronic findings as above are similar to prior. Laboratory Results WBC 8.16 10^3/uL (3.29-11.43) 04/13/25 15:50 RBC 5.39 10^6/uL (3.85-5.65) 04/13/25 15:50 Hgb 15.80 g/dL (11.27-16.99) 04/13/25 15:50 Hct 50.9 % (37-53) 04/13/25 15:50 MCV 94.4 fl (82-101) 04/13/25 15:50 MCH 29.3 pg (27-33) 04/13/25 15:50 MCHC 31.0 g/dL (30-55) 04/13/25 15:50 RDW 13.4 % (12.1-15.1) 04/13/25 15:50 Plt Count 219 10^3/cmm (157-399) 04/13/25 15:50 MPV 9.4 fL (7.4-10.4) 04/13/25 15:50 Neut % (Auto) 70.4 % 04/13/25 15:50 Lymph % (Auto) 13.2 % 04/13/25 15:50 [place] % (Auto) 7.4 % 04/13/25 15:50 Eos % (Auto) 8.2 % 04/13/25 15:50 Baso % (Auto) 0.6 % 04/13/25 15:50 Neut # (Auto) 5.74 10^3/uL (1.8-7.7) 04/13/25 15:50 Lymph # (Auto) 1.1 10^3/uL (0.8-4.8) 04/13/25 15:50 [place] # (Auto) 0.6 10^3/uL (0.2-0.9) 04/13/25 15:50 Eos # (Auto) 0.7 10^3/uL (0.0-0.8) 04/13/25 15:50 Baso # (Auto) 0.1 10^3/uL (0.0-0.1) 04/13/25 15:50 Nucleated RBC % (auto) 0 % 04/13/25 15:50 Nucleated RBCs # 0.0 /100WBC 04/13/25 15:50 Specimen Type Arterial 04/13/25 16:06 Sample Site Radial, left 04/13/25 16:06 ABG pH 7.41 (7.35-7.45) 04/13/25 16:06 ABG pCO2 42.7 mmHg (35-45) 04/13/25 16:06 ABG pO2 59.3 mmHg (80.0-100.0) L 04/13/25 16:06 ABG PO2/FiO2 Ratio 282 04/13/25 16:06 ABG HCO3 26.7 mmol/L (22-26) H 04/13/25 16:06 ABG O2 Saturation 90.8 04/13/25 16:06 ABG Base Excess 1.6 mmol/L (-2.0-2.0) 04/13/25 16:06 Matheus Test Pos 04/13/25 16:06 A-a O2 Gradient 4.9 mmHg (5-10) L 04/13/25 16:06 Hematocrit 49.5 % (42-52) 04/13/25 16:06 Hgb O2 Saturation 88.4 % (95-100) L 04/13/25 16:06 Carboxyhemoglobin 1.8 %THgb (0.4-20.1) 04/13/25 16:06 Methemoglobin 0.9 % (0.4-1.5) 04/13/25 16:06 Total Hemoglobin 16.2 g/dL (14-18) 04/13/25 16:06 Sodium 139.0 mmol/L (131-143) 04/13/25 16:06 Potassium 4.1 mmol/L (3.5-5.0) 04/13/25 16:06 Glucose 141.0 mg/dL (70-115) H 04/13/25 16:06 Ionized Calcium 1.2 mmol/L (1.1-1.4) 04/13/25 16:06 O2 Delivery Device Room air 04/13/25 16:06 FiO2 21.0 % 04/13/25 16:06 Bottle Feeder ID [place] 04/13/25 16:06 Sodium 137 mmol/L (136-145) 04/13/25 15:50 Potassium 4.3 mmol/L (3.5-5.1) 04/13/25 15:50 Chloride 101 mmol/L (98-107) 04/13/25 15:50 Carbon Dioxide 22 mmol/L (22-29) 04/13/25 15:50 Anion Gap 18.3 (5-19) 04/13/25 15:50 BUN 23 mg/dL (8-23) 04/13/25 15:50 Creatinine 0.9 mg/dL (0.7-1.2) 04/13/25 15:50 GFR Calculation Not Reportable 04/13/25 15:50 Glucose 133 mg/dL (65-115) H 04/13/25 15:50 Calculated Osmolality 290 mOsm/kg (285-295) 04/13/25 15:50 Calcium 9.1 mg/dL (8.5-10.5) 04/13/25 15:50 Total Bilirubin 1.0 mg/dL (0.15-1.2) 04/13/25 15:50 AST 20 U/L (0-40) 04/13/25 15:50 ALT 18 U/L (0-41) 04/13/25 15:50 Alkaline Phosphatase 74 U/L (40-130) 04/13/25 15:50 Troponin T Baseline 24 ng/L (0-15) H 04/13/25 15:50 Troponin T 120 Minute 23.26 ng/L (0-15) H 04/13/25 17:44 Delta Troponin T -0.74 ABS# (0-10) L 04/13/25 17:44 Total Protein 7.5 g/dL (6.6-8.7) 04/13/25 15:50 Albumin 3.6 g/dL (3.5-5.2) 04/13/25 15:50 Globulin 3.9 g/dL (1.3-4.6) 04/13/25 15:50 Urine Color Yellow (Yellow) 04/13/25 17:20 Urine Appearance Clear (CLEAR) 04/13/25 17:20 Urine pH 5.0 (5-7) 04/13/25 17:20 Ur Specific [place] 1.037 (1.005-1.030) H 04/13/25 17:20 Urine Protein Negative (Negative) 04/13/25 17:20 Urine Glucose (UA) 2+ (Normal) H 04/13/25 17:20 Urine Ketones Trace (Negative) 04/13/25 17:20 Urine Blood Negative (Negative) 04/13/25 17:20 Urine Nitrate Negative (Negative) 04/13/25 17:20 Urine Bilirubin Negative (Negative) 04/13/25 17:20 Urine Urobilinogen 0.2 mg/dL (Negative) 04/13/25 17:20 Ur Leukocyte Esterase Negative (Negative) 04/13/25 17:20 Urine RBC 0-2 /hpf (0-2) 04/13/25 17:20 Urine WBC 0-5 /hpf (0-5) 04/13/25 17:20 Ur Squamous Epith Cells 0-5 /hpf (0-5) 04/13/25 17:20 Amorphous Sediment Not Reportable 04/13/25 17:20 Urine Bacteria None seen /hpf (NONE) 04/13/25 17:20 Hyaline Casts 0.81 /lpf 04/13/25 17:20 Influenza A (PCR) Negative (Negative) 04/13/25 16:17 Influenza Type B (PCR) Negative (Negative) 04/13/25 16:17 RSV (PCR) Negative (Negative) 04/13/25 16:17 SARS-CoV-2 (PCR) Negative (Negative) 04/13/25 16:17 EKG Data EKG 1: Interpretation: EKG 04/13/2025 1541. Sinus rhythm rate of 86 VT interval [address] QTc [address] No acute [address] changes. EKG compared to 04/26/2024 first-degree block present on previous EKG not present on this EKG. Computer generated interpretation: Chest X-Ray 04/13/25 15:31 IMPRESSION: Stable abnormal chest as above. No acute abnormality. Head CT 04/13/25 16:12 IMPRESSION: 1. No acute intracranial abnormality. 2. Chronic findings as above are similar to prior. Discharge Plan Discharge Patient Disposition: Home Clinical Impression: URI (upper respiratory infection) Qualifiers: Streptococcal tonsillitis recurrence: not specified as recurrent or not Condition: Stable Prescriptions: New azithromycin 250 mg tablet See Rx Instructions .ROUTE .COMPLEX Qty: 6 0RF Rx Instructions: take 500 mg today (day 1), then 250 mg for 4 days (days 2-5) albuterol sulfate [Ventolin HFA] 90 mcg/actuation HFA aerosol inhaler 2 inh inhalation Q4H Qty: 8.5 0RF No Action cholecalciferol (vitamin D3) 50 mcg (2,000 unit) capsule 50 mcg PO DAILY Qty: 1 0RF Rx Instructions: OTC Probiotic Digestive Care 20 billion cell capsule See Rx Instructions PO .2 times day Qty: 60 2RF Rx Instructions: 20 billion cell PO .2 times day; Jardiance 25 mg tablet 25 mg PO QAM Qty: 90 0RF finasteride 5 mg tablet 5 mg PO QDAY Qty: 90 0RF rosuvastatin [Crestor] 20 mg tablet 20 mg PO DAILY Qty: 90 0RF escitalopram oxalate [Lexapro] 10 mg tablet 10 mg PO DAILY Qty: 90 0RF (DME) CPAP machine and supplies See Rx Instructions .ROUTE .MEDSUPPLY Qty: 1 0RF Rx Instructions: As directed (DME) OneTouch Ultra Test Strip See Rx Instructions .Route Qty: 50 5RF Rx Instructions: use 1 daily (DME) blood-glucose meter [OneTouch Ultra2 Meter] Kit See Rx Instructions .Route Qty: 1 0RF Rx Instructions: As directed gabapentin 800 mg tablet 800 mg PO TID Qty: 270 1RF glipizide 5 mg tablet extended release 24hr 5 mg PO DAILY Qty: 90 1RF levothyroxine 200 mcg tablet 200 mcg PO DAILY Qty: 90 1RF potassium chloride [Klor-Con 10] 10 mEq tablet extended release 10 meq PO QDAY PRN (Reason: with fluid pill ) Qty: 90 1RF valsartan [Diovan] 80 mg tablet 80 mg PO DAILY Qty: 90 1RF albuterol sulfate 2.5 mg /3 mL (0.083 %) solution for nebulization 2.5 mg inhalation Q4H PRN (Reason: shortness of breath or wheezing) Qty: 75 0RF nystatin 100,000 unit/gram cream 1 applic topical BID Qty: 15 0RF nitroglycerin 400 mcg/spray spray,non-aerosol 1 spray translingual Q5M PRN (Reason: chest pain) Qty: 4.9 0RF Rx Instructions: do not exceed 3 doses per episode (DME) Diabetic Shoes with Custom Insoles See Rx Instructions .Route .MEDSUPPLY Qty: 1 0RF Rx Instructions: As directed Janna Musa metoprolol tartrate 25 mg tablet 12.5 mg PO BID@0900,2100 Qty: 90 0RF oxycodone-acetaminophen 5-325 mg Tablet 1 tab PO BID PRN (Reason: Pain) pantoprazole [Protonix] 40 mg tablet,delayed release (DR/EC) 40 mg PO BID Qty: 60 11RF Aldactone 25 mg tablet 25 mg PO DAILY aspirin 81 mg tablet,delayed release (DR/EC) 81 mg PO DAILY Qty: 90 3RF Discharge Orders: Discharge ED (Routine); Ordered 04/13/25 Ordered By: Richard Boles Referrals: Je Pugh, [facility] [Primary Care Provider, Family Practice] Filomena Holly MD [Physician, Cardiology] Discharge Diet: Advance as tolerated Discharge Activity: Resume usual activity Patient Instructions: Opioid Safety, Pain Management, Patient Portal & Veda Instructions Print Language: Cymraes Coding Level of Care Code ED 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 Fwd Documented by User: Richard Boles MD 04/13/25 18:49 HPI - General Adult 2 General: Chief complaint: Headache Stated complaint: headache,sob,dizzy Time Seen by Provider: 04/13/25 15:31 Related Data Home Medications ?Medication ?Instructions ?Recorded ?Confirmed oxycodone-acetaminophen 5 mg-325 1 tab PO BID PRN Pain 05/31/22 04/13/25 mg tablet spironolactone 25 mg tablet 25 mg PO DAILY 04/23/24 (Aldactone) Previous Rx's ?Medication ?Instructions ?Recorded nitroglycerin 400 mcg/spray 1 spray translingual Q5M P RN chest 11/14/20 translingual pain #4.9 grams CPAP machine and supplies #1 ea 02/10/22 blood sugar diagnostic (OneTouch #50 ea 02/10/22 Ultra Test strips) blood-glucose meter (OneTouch #1 ea 02/10/22 Ultra2 Meter kit) pantoprazole 40 mg tablet,delayed 40 mg PO BID #60 tab s 09/10/22 release (Protonix) aspirin 81 mg tablet,delayed 81 mg PO DAILY #90 tabs 0 11/18/23 release cholecalciferol (vitamin D3) 50 50 mcg PO DAILY #1 cap 12/09/23 mcg (2,000 unit) capsule Lactobacillus rhamnosus GG 20 See Rx Instructions PO . 2 times 10/04/24 billion cell capsule (Probiotic day #60 caps Digestive Care) albuterol sulfate 2.5 mg/3 mL 2.5 mg (3 mL) inhalation Q4H PRN 12/20/24 (0.083 %) solution for nebulization shortness of breat h or wheezing #75 mL gabapentin 800 mg tablet 800 mg PO TID #270 tabs 12/10 11/05 glipizide 5 mg tablet, extended 5 mg PO DAILY #90 tabs 12/20/24 release 24 hr levothyroxine 200 mcg tablet 200 mcg PO DAILY #90 tabs 12/20/24 potassium chloride 10 mEq 10 meq PO QDAY PRN with flui d pill 12/20/24 tablet,extended release (Klor-Con) #90 tabs valsartan 80 mg tablet (Diovan) 80 mg PO DAILY #90 tab s 12/20/24 Diabetic Shoes with Custom Insoles #1 ea 12/29/24 nystatin 100,000 unit/gram topical 1 applic topical BI D #15 grams 01/25/25 cream metoprolol tartrate 25 mg tablet 12.5 mg (1/2 x 25 mg) PO 03/04/25 BID@0900,2100 #90 tabs empagliflozin 25 mg tablet 25 mg PO QAM #90 tabs 03/14 (Jardiance) escitalopram oxalate 10 mg tablet 10 mg PO DAILY #90 t abs 03/14/25 (Lexapro) finasteride 5 mg tablet 5 mg PO QDAY #90 tabs rosuvastatin 20 mg tablet (Crestor) 20 mg PO DAILY #90 tabs 03/14/25 albuterol sulfate 90 mcg/actuation 2 inh inhalation Q4 H #8.5 grams 04/13/25 aerosol inhaler (Ventolin HFA) azithromycin 250 mg tablet See Rx Instructions PO .COM PLEX #6 04/13/25 tabs Allergies Allergy/AdvReac Type Severity Reaction Status Date / Time No Known Allergies Allergy Verified 04/13/25 15:34 PFS ED 2 PFSH: Medical History Adult onset hypothyroidism Atrial fibrillation Atrial fibrillation status post cardioversion 04/24 Pneumonia Abdominal pain Atrial fibrillation with RVR Heart failure Pleural effusion on left Atrial flutter Hammertoe, bilateral Aortic stenosis Tubular adenoma of colon Helicobacter pylori gastritis Diabetes mellitus with hyperglycemia, without long-term current use of insulin Umbilical hernia Chest pain at rest Allergic rhinitis due to allergen Bilateral hearing loss due to cerumen impaction Dizziness and giddiness DDD (degenerative disc disease), lumbar Diverticula, colon Dependence on nocturnal oxygen therapy Osteoarthritis, knee DM autonomic neuropathy GREG on CPAP BPH loc w urin obs/LUTS Good response and durably so to dual medical therapy of FINASTERIDE/TAMSULOSIN (single dose) Chronic prostatitis On self treatment with CIPROFLOXACIN. Sporadic treatment required. Arteriosclerosis of coronary artery Urinary hesitancy Pain in thoracic spine at multiple sites Vitamin D insufficiency Dyslipidemia CAD (coronary artery disease) GERD (gastroesophageal reflux disease) Essential (primary) hypertension Surgical History History of oral surgery Removal oral extraction 02/02/24 in [place], [place] History of aortic valve replacement 02/03/24 at [place], [place] History of angiography With stent placement History of appendectomy History of carotid artery disease surgery right bilateral 2007 History of cataract surgery right and left History of cholecystectomy History of hernia repair Left H/O rectal polypectomy History of surgery on arm right skin graft age 17 History of surgical amputation of finger of right hand age 17 History of colonoscopy 2017 repeat in 3 years Family History Mother Cancer Father CAD (coronary artery disease) Stroke Denies family history of Bleeding disorder Social History Smoking and tobacco/nicotine status: former use of tobacco/nicotine Second hand smoke exposure: No Alcohol intake: never Substance/Drug Use: never Adopted: No Caregiver/support person: No Lives independently: Yes Household members: spouse Housing: House Marital status: service: No Current occupational status: employed and retired Do you think of yourself as: Straight/Heterosexual Current gender identity: Male Course 2 Vital Signs: Vital signs: Vital Signs Temperature 98.3 F 04/13/25 15:27 Pulse Rate 63 04/13/25 19:11 Respiratory Rate 19 H 04/13/25 19:11 Blood Pressure 132/52 04/13/25 19:11 Pulse Oximetry 95 04/13/25 19:11 Oxygen Delivery Me thod Room Air 04/13/25 17:18 MDM - General Adult Medical Decision Making Patient evaluated by myself. Patient with no significant abnormality noted on labs or imaging. Delta troponin is without any significant change. EKG is nonischemic. Chest x-ray shows no acute disease. Patient states that he has had a lot of nasal and sinus congestion as well as feels some respiratory congestion. He states that has been having to clear his throat a lot and feels a lot of mucus in his throat. He does also have a history of sleep apnea. He is oxygenation is fine while he is awake and talking here but does drop down into the high 80s when he is sleeping. Suspect all of this is in combination causing his symptoms. Denies any evidence of acute myocardial infarction at this time. Patient's symptoms not consistent with pulmonary embolism or dissection. Will go and treat patient for upper respiratory infection and have patient follow-up with cardiology as outpatient. Lab Data 04/13/25 15:50 04/13/25 15:50 Radiology Impressions Chest X-Ray 04/13/25 15:31 IMPRESSION: Stable abnormal chest as above. No acute abnormality. Head CT 04/13/25 16:12 IMPRESSION: 1. No acute intracranial abnormality. 2. Chronic findings as above are similar to prior. Laboratory Results WBC 8.16 10^3/uL (3.29-11.43) 04/13/25 15:50 RBC 5.39 10^6/uL (3.85-5.65) 04/13/25 15:50 Hgb 15.80 g/dL (11.27-16.99) 04/13/25 15:50 Hct 50.9 % (37-53) 04/13/25 15:50 MCV 94.4 fl (82-101) 04/13/25 15:50 MCH 29.3 pg (27-33) 04/13/25 15:50 MCHC 31.0 g/dL (30-55) 04/13/25 15:50 RDW 13.4 % (12.1-15.1) 04/13/25 15:50 Plt Count 219 10^3/cmm (157-399) 04/13/25 15:50 MPV 9.4 fL (7.4-10.4) 04/13/25 15:50 Neut % (Auto) 70.4 % 04/13/25 15:50 Lymph % (Auto) 13.2 % 04/13/25 15:50 [place] % (Auto) 7.4 % 04/13/25 15:50 Eos % (Auto) 8.2 % 04/13/25 15:50 Baso % (Auto) 0.6 % 04/13/25 15:50 Neut # (Auto) 5.74 10^3/uL (1.8-7.7) 04/13/25 15:50 Lymph # (Auto) 1.1 10^3/uL (0.8-4.8) 04/13/25 15:50 [place] # (Auto) 0.6 10^3/uL (0.2-0.9) 04/13/25 15:50 Eos # (Auto) 0.7 10^3/uL (0.0-0.8) 04/13/25 15:50 Baso # (Auto) 0.1 10^3/uL (0.0-0.1) 04/13/25 15:50 Nucleated RBC % (auto) 0 % 04/13/25 15:50 Nucleated RBCs # 0.0 /100WBC 04/13/25 15:50 Specimen Type Arterial 04/13/25 16:06 Sample Site Radial, left 04/13/25 16:06 ABG pH 7.41 (7.35-7.45) 04/13/25 16:06 ABG pCO2 42.7 mmHg (35-45) 04/13/25 16:06 ABG pO2 59.3 mmHg (80.0-100.0) L 04/13/25 16:06 ABG PO2/FiO2 Ratio 282 04/13/25 16:06 ABG HCO3 26.7 mmol/L (22-26) H 04/13/25 16:06 ABG O2 Saturation 90.8 04/13/25 16:06 ABG Base Excess 1.6 mmol/L (-2.0-2.0) 04/13/25 16:06 Matheus Test Pos 04/13/25 16:06 A-a O2 Gradient 4.9 mmHg (5-10) L 04/13/25 16:06 Hematocrit 49.5 % (42-52) 04/13/25 16:06 Hgb O2 Saturation 88.4 % (95-100) L 04/13/25 16:06 Carboxyhemoglobin 1.8 %THgb (0.4-20.1) 04/13/25 16:06 Methemoglobin 0.9 % (0.4-1.5) 04/13/25 16:06 Total Hemoglobin 16.2 g/dL (14-18) 04/13/25 16:06 Sodium 139.0 mmol/L (131-143) 04/13/25 16:06 Potassium 4.1 mmol/L (3.5-5.0) 04/13/25 16:06 Glucose 141.0 mg/dL (70-115) H 04/13/25 16:06 Ionized Calcium 1.2 mmol/L (1.1-1.4) 04/13/25 16:06 O2 Delivery Device Room air 04/13/25 16:06 FiO2 21.0 % 04/13/25 16:06 Bottle Feeder ID [place] 04/13/25 16:06 Sodium 137 mmol/L (136-145) 04/13/25 15:50 Potassium 4.3 mmol/L (3.5-5.1) 04/13/25 15:50 Chloride 101 mmol/L (98-107) 04/13/25 15:50 Carbon Dioxide 22 mmol/L (22-29) 04/13/25 15:50 Anion Gap 18.3 (5-19) 04/13/25 15:50 BUN 23 mg/dL (8-23) 04/13/25 15:50 Creatinine 0.9 mg/dL (0.7-1.2) 04/13/25 15:50 GFR Calculation Not Reportable 04/13/25 15:50 Glucose 133 mg/dL (65-115) H 04/13/25 15:50 Calculated Osmolality 290 mOsm/kg (285-295) 04/13/25 15:50 Calcium 9.1 mg/dL (8.5-10.5) 04/13/25 15:50 Total Bilirubin 1.0 mg/dL (0.15-1.2) 04/13/25 15:50 AST 20 U/L (0-40) 04/13/25 15:50 ALT 18 U/L (0-41) 04/13/25 15:50 Alkaline Phosphatase 74 U/L (40-130) 04/13/25 15:50 Troponin T Baseline 24 ng/L (0-15) H 04/13/25 15:50 Troponin T 120 Minute 23.26 ng/L (0-15) H 04/13/25 17:44 Delta Troponin T -0.74 ABS# (0-10) L 04/13/25 17:44 Total Protein 7.5 g/dL (6.6-8.7) 04/13/25 15:50 Albumin 3.6 g/dL (3.5-5.2) 04/13/25 15:50 Globulin 3.9 g/dL (1.3-4.6) 04/13/25 15:50 Urine Color Yellow (Yellow) 04/13/25 17:20 Urine Appearance Clear (CLEAR) 04/13/25 17:20 Urine pH 5.0 (5-7) 04/13/25 17:20 Ur Specific [place] 1.037 (1.005-1.030) H 04/13/25 17:20 Urine Protein Negative (Negative) 04/13/25 17:20 Urine Glucose (UA) 2+ (Normal) H 04/13/25 17:20 Urine Ketones Trace (Negative) 04/13/25 17:20 Urine Blood Negative (Negative) 04/13/25 17:20 Urine Nitrate Negative (Negative) 04/13/25 17:20 Urine Bilirubin Negative (Negative) 04/13/25 17:20 Urine Urobilinogen 0.2 mg/dL (Negative) 04/13/25 17:20 Ur Leukocyte Esterase Negative (Negative) 04/13/25 17:20 Urine RBC 0-2 /hpf (0-2) 04/13/25 17:20 Urine WBC 0-5 /hpf (0-5) 04/13/25 17:20 Ur Squamous Epith Cells 0-5 /hpf (0-5) 04/13/25 17:20 Amorphous Sediment Not Reportable 04/13/25 17:20 Urine Bacteria None seen /hpf (NONE) 04/13/25 17:20 Hyaline Casts 0.81 /lpf 04/13/25 17:20 Influenza A (PCR) Negative (Negative) 04/13/25 16:17 Influenza Type B (PCR) Negative (Negative) 04/13/25 16:17 RSV (PCR) Negative (Negative) 04/13/25 16:17 SARS-CoV-2 (PCR) Negative (Negative) 04/13/25 16:17 All radiology interpretation(s) finalized by discharge EKG Data EKG 1: Computer generated interpretation: Chest X-Ray 04/13/25 15:31 IMPRESSION: Stable abnormal chest as above. No acute abnormality. Head CT 04/13/25 16:12 IMPRESSION: 1. No acute intracranial abnormality. 2. Chronic findings as above are similar to prior. Discharge Plan Discharge Patient Disposition: Home Clinical Impression: URI (upper respiratory infection) Qualifiers: Streptococcal tonsillitis recurrence: not specified as recurrent or not Condition: Stable Prescriptions: New azithromycin 250 mg tablet See Rx Instructions .ROUTE .COMPLEX Qty: 6 0RF Rx Instructions: take 500 mg today (day 1), then 250 mg for 4 days (days 2-5) albuterol sulfate [Ventolin HFA] 90 mcg/actuation HFA aerosol inhaler 2 inh inhalation Q4H Qty: 8.5 0RF No Action cholecalciferol (vitamin D3) 50 mcg (2,000 unit) capsule 50 mcg PO DAILY Qty: 1 0RF Rx Instructions: OTC Probiotic Digestive Care 20 billion cell capsule See Rx Instructions PO .2 times day Qty: 60 2RF Rx Instructions: 20 billion cell PO .2 times day; Jardiance 25 mg tablet 25 mg PO QAM Qty: 90 0RF finasteride 5 mg tablet 5 mg PO QDAY Qty: 90 0RF rosuvastatin [Crestor] 20 mg tablet 20 mg PO DAILY Qty: 90 0RF escitalopram oxalate [Lexapro] 10 mg tablet 10 mg PO DAILY Qty: 90 0RF (DME) CPAP machine and supplies See Rx Instructions .ROUTE .MEDSUPPLY Qty: 1 0RF Rx Instructions: As directed (DME) OneTouch Ultra Test Strip See Rx Instructions .Route Qty: 50 5RF Rx Instructions: use 1 daily (DME) blood-glucose meter [PlexPressTouch Ultra2 Meter] Kit See Rx Instructions .Route Qty: 1 0RF Rx Instructions: As directed gabapentin 800 mg tablet 800 mg PO TID Qty: 270 1RF glipizide 5 mg tablet extended release 24hr 5 mg PO DAILY Qty: 90 1RF levothyroxine 200 mcg tablet 200 mcg PO DAILY Qty: 90 1RF potassium chloride [Klor-Con 10] 10 mEq tablet extended release 10 meq PO QDAY PRN (Reason: with fluid pill ) Qty: 90 1RF valsartan [Diovan] 80 mg tablet 80 mg PO DAILY Qty: 90 1RF albuterol sulfate 2.5 mg /3 mL (0.083 %) solution for nebulization 2.5 mg inhalation Q4H PRN (Reason: shortness of breath or wheezing) Qty: 75 0RF nystatin 100,000 unit/gram cream 1 applic topical BID Qty: 15 0RF nitroglycerin 400 mcg/spray spray,non-aerosol 1 spray translingual Q5M PRN (Reason: chest pain) Qty: 4.9 0RF Rx Instructions: do not exceed 3 doses per episode (DME) Diabetic Shoes with Custom Insoles See Rx Instructions .Route .MEDSUPPLY Qty: 1 0RF Rx Instructions: As directed Janna Musa metoprolol tartrate 25 mg tablet 12.5 mg PO BID@0900,2100 Qty: 90 0RF oxycodone-acetaminophen 5-325 mg Tablet 1 tab PO BID PRN (Reason: Pain) pantoprazole [Protonix] 40 mg tablet,delayed release (DR/EC) 40 mg PO BID Qty: 60 11RF Aldactone 25 mg tablet 25 mg PO DAILY aspirin 81 mg tablet,delayed release (DR/EC) 81 mg PO DAILY Qty: 90 3RF Discharge Orders: Discharge ED (Routine); Ordered 04/13/25 Ordered By: Richard Boles Referrals: Je Pugh, AD[facility] [Primary Care Provider, Family Practice] Filomena Holly MD [Physician, Cardiology] Discharge Diet: Advance as tolerated Discharge Activity: Resume usual activity Patient Instructions: Opioid Safety, Pain Management, Patient Portal & Veda Instructions Print Language: Cymraes Coding Level of Care Code 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
[2025-04-13 15:56] LABS: Hematocrit 50.9 % (37-53); Hemoglobin 15.80 g/dL (11.27-16.99); Mean Corpuscular HGB Conc 31.0 g/dL (30-55); Mean Corpuscular Hemoglobin 29.3 pg (27-33); Mean Corpuscular Volume 94.4 fl (82-101); Nucleated Red Blood Cells % 0 %; Platelet Count 219 10^3/cmm (157-399); Red Blood Count 5.39 10^6/uL (3.85-5.65); White Blood Count 8.16 10^3/uL (3.29-11.43)
--- NOTE | 2025-04-13 16:12 | CTR_ITS ---
PROCEDURE INFORMATION: Exam: CT Head Without Contrast Exam date and time: 04/13/2025 4:39 PM Age: 80 years old Clinical indication: Pain; Headache; Migraine; Additional info: Dizziness headache TECHNIQUE: Imaging protocol: Computed tomography of the head without contrast. Radiation optimization: All CT scans at this facility use at least one of these dose optimization techniques: automated exposure control; mA and/or kV adjustment per patient size (includes targeted exams where dose is matched to clinical indication); or iterative reconstruction. COMPARISON: CT head wo con* [id number] 03/21/2025 10:09 AM RADIATION DOSE METRICS: Total DLP (mGy-cm): 1269.18 FINDINGS: Brain: Similar mild generalized cortical volume loss. Mild encephalomalacia in the right frontotemporal lobe, similar to prior. No hemorrhage. Periventricular and subcortical white matter hypodensities likely represent chronic small vessel ischemic changes. No mass effect. Cerebral ventricles: No ventriculomegaly. Paranasal sinuses: Improved secretions previously seen in the left maxillary sinus. No air-fluid levels. Mastoid air cells: Visualized mastoid air cells are well aerated. Orbital cavities: Small drusen bodies again seen near the optic nerve origins. Bones: Unremarkable. No acute fracture. Soft tissues: Unremarkable. Vasculature: Vascular calcifications along the carotid siphons. CT/CT head wo con* [id number] IMPRESSION: 1. No acute intracranial abnormality. 2. Chronic findings as above are similar to prior.
[2025-04-13 16:15] LABS: Alanine Aminotransferase 18 U/L (0-41); Albumin Level 3.6 g/dL (3.5-5.2); Alkaline Phosphatase 74 U/L (40-130); Anion Gap 18.3 (5-19); Aspartate Amino Transferase 20 U/L (0-40); Blood Urea Nitrogen 23 mg/dL (8-23); Calcium 9.1 mg/dL (8.5-10.5); Carbon Dioxide 22 mmol/L (22-29); Chloride 101 mmol/L (98-107); Creatinine Clr Calc Pharmacy 89.8571; Globulin 3.9 g/dL (1.3-4.6); Glucose 133 mg/dL (65-115); Osmolality Calculated 290 mOsm/kg (285-295); Potassium 4.3 mmol/L (3.5-5.1); Sodium 137 mmol/L (136-145); Total Protein 7.5 g/dL (6.6-8.7)
[2025-04-13 16:17] LABS: ABG PCO2 42.7 mmHg (35-45); ABG PH Result 7.41 (7.35-7.45); Alveolar-Arterial Oxygen Gradi 4.9 mmHg (5-10); Arterial Blood Gas Hematocrit 49.5 % (42-52); Blood Gas Allen Test Pos; Blood Gas Operator Identificat WALCI; Blood Gas Sample Site Radial, left; Blood Gas Sample Type Arterial; Carboxyhemoglobin 1.8 %THgb (0.4-20.1); Glucose Level-ABG 141.0 mg/dL (70-115); HCO3 ABG 26.7 mmol/L (22-26); Ionized Calcium Level - ABG 1.2 mmol/L (1.1-1.4); Methemoglobin 0.9 % (0.4-1.5); Oxygen Saturation ABG 90.8; PO2 ABG 59.3 mmHg (80.0-100.0); PO2 FiO2 Ratio Arterial Blood 282; Potassium Level - ABG 4.1 mmol/L (3.5-5.0); Sodium Level - ABG 139.0 mmol/L (131-143)
[2025-04-13 17:05] LABS: Respiratory Syncytial Virus Ce NEGATIVE (Negative); SARS-CoV-2 PCR NEGATIVE (Negative)
[2025-04-13 17:18] VITALS: BP 144/56; PULSE 69; RESP 16; O2SAT 92
[2025-04-13 17:18] LABS: Troponin(5th) Baseline 24 ng/L (0-15)
[2025-04-13 17:45] LABS: Glucose Urine UA 2+ (Normal); Nitrate Urine Negative (Negative)
[2025-04-13 17:50] LABS: Add Urine Microscopic? YES
[2025-04-13 18:00] LABS: Specific Gravity, Urine 1.037 (1.005-1.030)
--- NOTE | 2025-04-13 18:12 | ECG_ITS ---
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
[2025-04-13 18:16] LABS: Troponin 5 2HR 23.26 ng/L (0-15)
[2025-04-13 18:20] LABS: Troponin 5 2HR Delta -0.74 ABS# (0-10)
[2025-04-13 19:11] VITALS: BP 132/52; PULSE 63; RESP 19; O2SAT 95
== END 2025-04-13 19:12 | disposition home or self-care (01) ==
PROVIDERS: Family Medicine; Emergency Provider Emergency Medicine; PCP Nurse Practitioner
DX: J03.00 Acute streptococcal tonsillitis, unspecified (principal); Z79.82 Long term (current) use of aspirin; Z11.52 Encounter for screening for COVID-19; Z87.891 Personal history of nicotine dependence; I11.0 Hypertensive heart disease with heart failure; I50.9 Heart failure, unspecified; I25.10 Atherosclerotic heart disease of native coronary artery without angina pectoris; E78.5 Hyperlipidemia, unspecified
CPT/HCPCS: 36415; 36600; 70450; 71045; 80051; 80053; 81001; 82330; 82805; 84484; 85025; 87637; 93005; 93010; 99285

== ENCOUNTER → 2025-04-24 14:38 | Outpatient (BNVA) | payer MEDICARE, OTHER, SELFPAY | PROVIDERS: PCP Nurse Practitioner; Visit Provider Internal Medicine | DX: I25.118 Atherosclerotic heart disease of native coronary artery with other forms of angina pectoris (principal); I10 Essential (primary) hypertension; I73.9 Peripheral vascular disease, unspecified; I35.0 Nonrheumatic aortic (valve) stenosis; Z79.82 Long term (current) use of aspirin; Z95.2 Presence of prosthetic heart valve; Z95.5 Presence of coronary angioplasty implant and graft; Z87.891 Personal history of nicotine dependence | CPT/HCPCS: 99214 ==

== ENCOUNTER 2025-05-16 14:05 | Outpatient (CLI) | payer MEDICARE, OTHER, SELFPAY ==
--- NOTE | 2025-05-16 14:21 | XR_ITS ---
WS: [email or web address] XR knee RT 1-2V [id number] REASON FOR EXAM: RIGHT KNEE PAIN FINDINGS: No fracture or focal bone lesion. Significant narrowing of the medial knee joint space with moderate subchondral sclerosis and marginal osteophytosis. The lateral knee joint space is intact and well preserved with minimal marginal osteophytosis. Patellofemoral joint space appears somewhat narrowed. There is moderate subchondral sclerosis and osteophytosis of the patella and significant osteophytosis of the opposing femoral condyles. There are posterior and anterior bony exostoses from the tibial plateaus at the margins of the articular surfaces. Enthesophytosis of the tibial eminences. Loose body/bodies. XR/XR knee RT 1-2V [id number] IMPRESSION: Significant osteoarthritis of the right knee as above.
--- NOTE | 2025-05-16 14:22 | XR_ITS ---
WS: [email or web address] [id number] REASON FOR EXAM: LEFT KNEE PAIN FINDINGS: No fracture or focal bone lesion. Moderately severe narrowing of the medial knee joint space with near [id number] articulation. Significant subchondral sclerosis and marginal osteophytosis. Mild medial shift of the femur. The lateral joint space is intact and relatively well preserved with mild subchondral sclerosis and moderate marginal osteophytosis. Patellofemoral joint space appears somewhat narrowed with moderate subchondral sclerosis and osteophytosis of the patella and moderate osteophytosis of the opposing femoral condyles. Bony exostoses from the anterior and posterior tibial plateaus at the margins of the articular surfaces. Enthesophytosis of the tibial eminences. Loose body/bodies. XR/[place] [id number] IMPRESSION: Moderately severe osteoarthritis as above.
--- NOTE | 2025-05-16 14:22 | XR_ITS ---
WS: [email or web address] XR lumbar spine 2-3V* [id number] REASON FOR EXAM: LUMBAR SPONDYLOSIS FINDINGS: Mild rotatory dextroscoliosis. Mild straightening of the normal lordosis. Mild biconcave compression deformities L1 and L2. No focal vertebral body lesion. Minimal to mild narrowing of the T12-L1 and L1-L2 disc spaces with mild vertebral body osteophytosis. Moderate narrowing of the L3-L4 and L5-S1 disc spaces with degenerative gas and endplate sclerosis and osteophytosis. No spondylolysis. 7 to 8 mm of anterolisthesis of L5 on S1. Reverse wedge deformity of the L5 vertebral body and near vertical orientation of the L5-S1 disc space. Fusiform abdominal aortic aneurysm 4.2 cm in maximum diameter. Iliac artery aneurysm 2.5 cm in maximum diameter. XR/XR lumbar spine 2-3V* [id number] IMPRESSION: Degenerative spondylosis. Abdominal aortic and iliac artery aneurysms as above.
--- NOTE | 2025-05-16 14:23 | XR_ITS ---
WS: [email or web address] XR hip BI m 5V wo/w pel* [id number] REASON FOR EXAM: LET HIP PAIN FINDINGS: RIGHT HIP: No fracture or focal bone lesion. Minimal narrowing of the joint space with minimal subchondral sclerosis and osteophytosis of the acetabulum. Minimal osteophytosis of the femoral head. XR/XR hip BI m 5V wo/w pel* [id number] IMPRESSION: Minimal osteoarthritis for age. LEFT HIP: No fracture or focal bone lesion. Mild narrowing of the joint space with mild subchondral sclerosis and osteophyt osis of the acetabulum. Mild osteophytosis of the femoral head. IMPRESSION: Mild osteoarthritis for age.
== END 2025-05-16 14:06 | disposition home or self-care (01) ==
LOC: RAD 14:14
PROVIDERS: PCP Nurse Practitioner; Visit Provider General Practice
DX: M17.0 Bilateral primary osteoarthritis of knee (principal); M25.78 Osteophyte, vertebrae; M48.061 Spinal stenosis, lumbar region without neurogenic claudication; M48.07 Spinal stenosis, lumbosacral region; I71.40 Abdominal aortic aneurysm, without rupture, unspecified; I72.3 Aneurysm of iliac artery
CPT/HCPCS: 72100; 73523; 73560

== ENCOUNTER → 2025-06-07 10:35 | Outpatient (BNVA) | payer MEDICARE, OTHER, SELFPAY | PROVIDERS: PCP Nurse Practitioner; Visit Provider Nurse Practitioner | DX: E11.65 Type 2 diabetes mellitus with hyperglycemia (principal); E55.9 Vitamin D deficiency, unspecified; E03.8 Other specified hypothyroidism | CPT/HCPCS: 80053; 80061; 82306; 82607; 83036; 84439; 84443; 84481; 85025 ==

== ENCOUNTER → 2025-07-06 07:35 | Outpatient (BNVA) | payer MEDICARE, OTHER, SELFPAY | PROVIDERS: PCP Nurse Practitioner; Visit Provider Podiatrist Foot & Ankle Surgery | DX: E11.42 Type 2 diabetes mellitus with diabetic polyneuropathy (principal); L84 Corns and callosities; L60.3 Nail dystrophy | CPT/HCPCS: 11055; 11721 ==

== ENCOUNTER → 2025-08-30 12:08 | Outpatient (BNVA) | payer MEDICARE, OTHER, SELFPAY | PROVIDERS: PCP Nurse Practitioner; Visit Provider Nurse Practitioner | DX: E11.65 Type 2 diabetes mellitus with hyperglycemia (principal); E03.8 Other specified hypothyroidism; E55.9 Vitamin D deficiency, unspecified | CPT/HCPCS: 80053; 80061; 81000; 82043; 82306; 82607; 83036; 84439; 84443; 84481 ==

== ENCOUNTER → 2025-10-02 14:06 | Outpatient (BNVA) | payer MEDICARE, OTHER, SELFPAY | PROVIDERS: PCP Nurse Practitioner; Visit Provider Podiatrist Foot & Ankle Surgery | DX: E11.42 Type 2 diabetes mellitus with diabetic polyneuropathy (principal); L60.3 Nail dystrophy; L84 Corns and callosities; M21.621 Bunionette of right foot; M21.622 Bunionette of left foot; M20.41 Other hammer toe(s) (acquired), right foot; M20.42 Other hammer toe(s) (acquired), left foot; M21.41 Flat foot [pes planus] (acquired), right foot; M21.42 Flat foot [pes planus] (acquired), left foot; Z79.84 Long term (current) use of oral hypoglycemic drugs | CPT/HCPCS: 11055; 11721; 99213 ==